=== PATIENT | female | born 1965 | race Caucasian/White ===

== ENCOUNTER 2024-10-24 21:34 | Inpatient (IN) | payer MEDICARE, OTHER, SELFPAY ==
[2024-10-24] VITALS (9 sets, daily range): BP systolic 108–139; BP diastolic 42–66; BMI 25.1; BMI 24.0
--- NOTE | 2024-10-24 15:33 | ED.GENMED ---
History of Present Illness
<Marilyn Burch [employer] - Last Filed: 10/24/24 22:32>
General
Chief Complaint: Fainting/Passed Out
Source: patient, family and ambulance crew
Exam Limitations: none
Time Seen by Provider: 10/24/24 15:30
Nursing documentation reviewed up to this point in time: agreed with
History of Present Illness
History of Present Illness:
59-year-old female with IDDM, ESRD dialysis patient, quadruple bypass cardiac, defibrillator, colon mass, necrotic R 2nd toe, PAD, neuropathy, drop foot, cataracts, retinopathy, bed sores presents from [facility] for approx 45 second
LOC. Pt states she is here because 'I felt like I was going to faint.' Family at bedside state this happened about a month ago, went to [facility] and needed blood transfusion, cardiac enzymes were high.
Pt denies SOB, CP, abd pain. Denies n/v. Is on her 3rd week of Vancocin for c-diff and diarrhea has subsided.
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 with vascular next month.
Past History
<Marilyn Burch [employer] - Last Filed: 10/24/24 22:32>
Past History
ED Past Medical History: CHF, Hypercholesterolemia, IDDM, Renal failure (on dialysis) and Other (ASCVD, Anemia, )
ED Past Surgical History: Cardiac (defibrillator, quadruple bypass)
Social History
Personal: Single
Living: custodial
Employment: Employed
Review of Systems
<Marilyn Burch [employer] - Last Filed: 10/24/24 22:32>
Review of Systems
Allergies reviewed?: Yes
All Other Systems: ROS reviewed and negative except as documented in HPI and ROS
Constitutional: Reports fatigue; Denies fever
Respiratory: Denies trouble breathing
Cardiac: Reports syncope; Denies chest pain or palpitations
ABD/GI: Denies abdominal pain, nausea, vomiting or diarrhea
: Reports other (Makes little urine, dialysis patient)
Musculoskeletal: Denies edema
Skin: Reports other (Dry gangrene right second toe)
Neurological: Denies headache
Phy Exam
<Marilyn Burch, [employer] - Last Filed: 10/24/24 22:32>
Physical Exam
Physical Exam:
GENERAL: No acute distress. A&Ox3.
CONSTITUTIONAL: Afebrile.
EYES: clear, conjunctivae normal
ENMT: moist mucus membranes, Pharynx nl
RESPIRATORY: Regular respirations, nonlabored, lungs clear.
CARDIOVASCULAR: Regular rate and rhythm, no murmurs, no rubs.
GI: Soft, nontender, normal BS
MUSCULOSKELETAL: Moves with ease. Well perfused.
SKIN: Warm, dry, pale, black, dry flaky right 2nd toe.
PSYCH: Depressed mood and affect. Chronically ill appearing, interactive and appropriate
NEUROLOGIC: Awake, chronically ill appearing, oriented. Speech slow but clear. No focal neurological deficits
Course
<Marilyn Burch, [employer] - Last Filed: 10/24/24 22:32>
Orders/Labs/Results
Orders:
Orders
10/24/24 15:00
Electrocardiogram (*1) Urgent
Reason for Study: Syncope
EKG- Treatment ONCE
10/24/24 15:48
Complete Blood Count/With Diff Urgent
Troponin I Urgent
10/24/24 16:09
Straight cath- Treatment ONCE
10/24/24 16:52
Urinalysis Reflex To Culture Urgent
Date Specimen was Collected: 10/24/24
Time Specimen was Collected: 16:49
Urine Microscopic Reflex Cult Urgent
Urine Culture Urgent
JERROD Source: U
Specimen Description:
Date Specimen was Collected: 10/24/24
Time Specimen was Collected: 16:49
10/24/24 18:34
CefTRIAXone [Rocephin] 1,000 mg IV NOW STA
10/24/24 18:37
CR Chest Portable - 1 View Urgent
Comment:
Reason For Exam: leukocytosis, syncopal episode
Reason Study Needs to be Portable: Patient Unstable
10/24/24 19:30
Comprehensive Metabolic Panel Urgent
Lactic Acid Urgent
Blood Culture Urgent
JERROD Source: Blood/Venous
Specimen Description:
10/24/24 19:31
Sterile Water [Sterile Water For Injection] 10 ml .ROUTE .[facility]
10/24/24 19:38
Blood Culture Urgent
JERROD Source: Blood/Venous
Specimen Description:
10/24/24 21:17
Admit/Transfer Patient As Directed
Co-Sign Provider:
Level of Care: Inpatient admission
Assign to:: Telemetry
Physician / Group: Celio
Diagnosis: Sepsis, UTI, Sacral Wound
Reason for Telemetry: Arrhythmia
Date to Stop Telemetry: 10/27/24
Time to Stop Telemetry: 11:00
Reason for Hospitalization: Sepsis, UTI, Sacral Wound
Expected length of stay greater than two midnights?: Yes
ELOS- Estimated Length of Stay in days: 3
I certify the patient meets the requirements for IP care: Yes
10/24/24 21:18
PRN Pain Medication Management As Directed
May give lesser potent ordered pain med per pt: Yes
preference::
Protocol:: Medication orders for pain may be administered in a
manner that supports deferring to patient preference
when the pt is:
- Requesting an ordered lesser potent pain medication.
Least to most potent pain medications are defined
as: acetaminophen < NSAID < tramadol < opioids
(morphine, oxycodone, hydromorphone).
- Requesting a lesser dose of the same medication IF
ORDERED.
- Requesting a less intrusive route of administration
if both routes are prescribed by the provider (PO <
IV).
10/24/24 21:23
Code Status As Directed
Resuscitation Status: Full Code
10/24/24 22:30
Acetaminophen [Tylenol] 650 mg PO Q6HPRN PRN mild pain / temp > 101 mild pain / temp > 101
Atorvastatin [Lipitor] 40 mg PO HS
Dextrose 50%-Water [Dextrose 50% Syringe] 12.5 grams IV [id number] PRN
Ezetimibe [Zetia] 10 mg PO HS
Glucagon [GlucaGen] 1 mg IM PRN PRN
Heparin 5,000 units SC TID
Melatonin 3 mg PO HSPRN PRN sleep
insulin glargine 10 unit SC HS
vancomycin [Vancocin] 250 mg PO QID
10/24/24 22:30
WOUND/OSTOMY CONSULT Routine
Reason for Consult: Sacral Wound
TSH Reflex To Free T4 Routine
Activity As Directed
Activity Level: Ambulate
With Assistance
Bedside Glucose Monitoring As Directed
Frequency: AC&HS
Additional Instructions:: Change to q6h if pt on TPN, tube feeding or not eating
EKG with chest pain [ECG as needed] As Directed
ECG as needed for:: Chest Pain
I/O [Intake/ Output] As Directed
Frequency: Per unit guidelines
Precautions As Directed
Type of Precautions: Contact
Records Request [Obtain Records] As Directed
Dates of Information to be Released: Most Recent
Type of Information Requested: Entire Record
Obtain Records from: [facility]
Vital Signs As Directed
Frequency: Per unit guidelines
Weight As Directed
Frequency: Daily
Oxygen Therapy [O2 Therapy] [RESP] Routine
Titrate/Wean O2 to maintain O2 sat greater than (%): 94
Ot Eval And Treat Routine
PT Consult [Pt Eval And Treat] Routine
Activity Level: Ambulate
With Assistance
10/25/24 Breakfast
2000 calorie (17 carb) Diabetic
Fluid Restriction: 1500 mL/day (50 oz)
Basic Metabolic Panel IN AM
Complete Blood Count/No Diff IN AM
Glycohemoglobin (HgbA1c) IN AM
Magnesium IN AM
Phosphorus IN AM
10/25/24 07:30
Insulin Aspart Corrective Low [Novolog Flexpen-Low Resistance] See Protocol SC AC
10/25/24 08:00
Aspirin Low Dose EC [Aspir Low (Enteric Coated)] 81 mg PO DAILY
Carvedilol [Coreg] 12.5 mg PO SUTUTHSA@0800
Clopidogrel Bisulfate [Plavix] 75 mg PO DAILY
ISOSORBIDE MONOnitrate ER [Imdur (Extended Release)] 30 mg PO SUTUTHSA@0800
Saccharomyces Boulardii [Florastor] 250 mg PO BID
insulin glargine 10 unit SC DAILY
10/25/24 18:00
Ferrous Sulfate [Feosol] 162.5 mg PO QPM
10/25/24 20:00
CefTRIAXone [Rocephin] 1,000 mg IV Q24H
10/27/24 11:00
DC Protocol for Telemetry ONCE
Abnormal Lab Results
10/24/24 10/24/24 10/24/24
15:48 16:52 19:30
WBC 19.9 H 10^3/uL
(4.8-10.8)
RBC 3.25 L 10^6/uL
(4.20-5.40)
Hgb 9.3 L g/dL
(12.0-16.0)
Hct 29.1 L %
(37.0-47.0)
MCHC 32.0 L g/dL
(33.0-37.0)
RDW 16.3 H %
(11.5-14.5)
Plt Count 415 H 10^3/uL
(130-400)
Abs Immat Gran (auto) 0.4 H 10^3/uL
(0-0.05)
Absolute Neuts (auto) 16.7 H 10^3/uL
(1.4-6.5)
Absolute Lymphs (auto) 1.0 L 10^3/uL
(1.2-3.4)
Absolute Monos (auto) 1.5 H 10^3/uL
(0.1-0.6)
Immature Gran % 1.9 H %
(0-0.5)
Neutrophils % 84.0 H %
(42.2-75.2)
Lymphocytes % 4.9 L %
(20.5-51.1)
Sodium 131 L mmol/L
(135-145)
Chloride 97 L mmol/L
(98-107)
BUN 41 H mg/dl
(7-17)
Creatinine 4.1 H* mg/dL
(0.6-1.0)
Glucose 127 H mg/dl
(70-99)
AST 13 L U/L
(14-36)
Albumin 3.1 L g/dl
(3.5-5.0)
Urine Ketones 1+ A
(Negative)
Ur Occult Blood Reflex 4+ A
(Negative)
Urine Bilirubin 2+ A
(Negative)
Leukocyte Esterase Rfl 3+ A
(Negative)
Urine RBC >100 A /HPF
(0-2)
Urine WBC (Reflex) >100 A /HPF
(0-5)
Urine Bacteria (Reflex) Many A
(Negative)
Urine Albumin (Reflex) 3+ A
(Neg - Trace)
10/24/24 15:48
10/24/24 19:30
Vital Signs
Initial and Last Documented VS:
Initial Vital Signs
Temp Pulse Resp Pulse Ox
98.1 F 79 15 97
10/24/24 15:07 10/24/24 15:07 10/24/24 15:07 10/24/24 15:07
Last Documented Vital Signs
Temp Pulse Resp BP Pulse Ox
98.1 F 74 20 123/56 99
10/24/24 15:07 10/24/24 22:15 10/24/24 22:15 10/24/24 22:00 10/24/24 22:15
<Kathie Simon, DO - Last Filed: 10/24/24 18:18>
Orders/Labs/Results
Orders:
Orders
10/24/24 15:00
Electrocardiogram (*1) Urgent
Reason for Study: Syncope
EKG- Treatment ONCE
10/24/24 15:48
Complete Blood Count/With Diff Urgent
Troponin I Urgent
10/24/24 16:09
Straight cath- Treatment ONCE
10/24/24 16:52
Urinalysis Reflex To Culture Urgent
Date Specimen was Collected: 10/24/24
Time Specimen was Collected: 16:49
Urine Microscopic Reflex Cult Urgent
Urine Culture Urgent
JERROD Source: U
Specimen Description:
Date Specimen was Collected: 10/24/24
Time Specimen was Collected: 16:49
10/24/24 18:34
CefTRIAXone [Rocephin] 1,000 mg IV NOW STA
10/24/24 18:37
CR Chest Portable - 1 View Urgent
Comment:
Reason For Exam: leukocytosis, syncopal episode
Reason Study Needs to be Portable: Patient Unstable
10/24/24 19:30
Comprehensive Metabolic Panel Urgent
Lactic Acid Urgent
Blood Culture Urgent
JERROD Source: Blood/Venous
Specimen Description:
10/24/24 19:31
Sterile Water [Sterile Water For Injection] 10 ml .ROUTE .[facility]
10/24/24 19:38
Blood Culture Urgent
JERROD Source: Blood/Venous
Specimen Description:
10/24/24 21:17
Admit/Transfer Patient As Directed
Co-Sign Provider:
Level of Care: Inpatient admission
Assign to:: Telemetry
Physician / Group: Celio
Diagnosis: Sepsis, UTI, Sacral Wound
Reason for Telemetry: Arrhythmia
Date to Stop Telemetry: 10/27/24
Time to Stop Telemetry: 11:00
Reason for Hospitalization: Sepsis, UTI, Sacral Wound
Expected length of stay greater than two midnights?: Yes
ELOS- Estimated Length of Stay in days: 3
I certify the patient meets the requirements for IP care: Yes
10/24/24 21:18
PRN Pain Medication Management As Directed
May give lesser potent ordered pain med per pt: Yes
preference::
Protocol:: Medication orders for pain may be administered in a
manner that supports deferring to patient preference
when the pt is:
- Requesting an ordered lesser potent pain medication.
Least to most potent pain medications are defined
as: acetaminophen < NSAID < tramadol < opioids
(morphine, oxycodone, hydromorphone).
- Requesting a lesser dose of the same medication IF
ORDERED.
- Requesting a less intrusive route of administration
if both routes are prescribed by the provider (PO <
IV).
10/24/24 21:23
Code Status As Directed
Resuscitation Status: Full Code
10/24/24 22:30
Acetaminophen [Tylenol] 650 mg PO Q6HPRN PRN mild pain / temp > 101 mild pain / temp > 101
Atorvastatin [Lipitor] 40 mg PO HS
Dextrose 50%-Water [Dextrose 50% Syringe] 12.5 grams IV [id number] PRN
Ezetimibe [Zetia] 10 mg PO HS
Glucagon [GlucaGen] 1 mg IM PRN PRN
Heparin 5,000 units SC TID
Melatonin 3 mg PO HSPRN PRN sleep
insulin glargine 10 unit SC HS
vancomycin [Vancocin] 250 mg PO QID
10/24/24 22:30
WOUND/OSTOMY CONSULT Routine
Reason for Consult: Sacral Wound
TSH Reflex To Free T4 Routine
Activity As Directed
Activity Level: Ambulate
With Assistance
Bedside Glucose Monitoring As Directed
Frequency: AC&HS
Additional Instructions:: Change to q6h if pt on TPN, tube feeding or not eating
EKG with chest pain [ECG as needed] As Directed
ECG as needed for:: Chest Pain
I/O [Intake/ Output] As Directed
Frequency: Per unit guidelines
Precautions As Directed
Type of Precautions: Contact
Records Request [Obtain Records] As Directed
Dates of Information to be Released: Most Recent
Type of Information Requested: Entire Record
Obtain Records from: [facility]
Vital Signs As Directed
Frequency: Per unit guidelines
Weight As Directed
Frequency: Daily
Oxygen Therapy [O2 Therapy] [RESP] Routine
Titrate/Wean O2 to maintain O2 sat greater than (%): 94
Ot Eval And Treat Routine
PT Consult [Pt Eval And Treat] Routine
Activity Level: Ambulate
With Assistance
10/25/24 Breakfast
2000 calorie (17 carb) Diabetic
Fluid Restriction: 1500 mL/day (50 oz)
Basic Metabolic Panel IN AM
Complete Blood Count/No Diff IN AM
Glycohemoglobin (HgbA1c) IN AM
Magnesium IN AM
Phosphorus IN AM
10/25/24 07:30
Insulin Aspart Corrective Low [Novolog Flexpen-Low Resistance] See Protocol SC AC
10/25/24 08:00
Aspirin Low Dose EC [Aspir Low (Enteric Coated)] 81 mg PO DAILY
Carvedilol [Coreg] 12.5 mg PO SUTUTHSA@0800
Clopidogrel Bisulfate [Plavix] 75 mg PO DAILY
ISOSORBIDE MONOnitrate ER [Imdur (Extended Release)] 30 mg PO SUTUTHSA@0800
Saccharomyces Boulardii [Florastor] 250 mg PO BID
insulin glargine 10 unit SC DAILY
10/25/24 18:00
Ferrous Sulfate [Feosol] 162.5 mg PO QPM
10/25/24 20:00
CefTRIAXone [Rocephin] 1,000 mg IV Q24H
10/27/24 11:00
DC Protocol for Telemetry ONCE
Abnormal Lab Results
10/24/24 10/24/24 10/24/24
15:48 16:52 19:30
WBC 19.9 H 10^3/uL
(4.8-10.8)
RBC 3.25 L 10^6/uL
(4.20-5.40)
Hgb 9.3 L g/dL
(12.0-16.0)
Hct 29.1 L %
(37.0-47.0)
MCHC 32.0 L g/dL
(33.0-37.0)
RDW 16.3 H %
(11.5-14.5)
Plt Count 415 H 10^3/uL
(130-400)
Abs Immat Gran (auto) 0.4 H 10^3/uL
(0-0.05)
Absolute Neuts (auto) 16.7 H 10^3/uL
(1.4-6.5)
Absolute Lymphs (auto) 1.0 L 10^3/uL
(1.2-3.4)
Absolute Monos (auto) 1.5 H 10^3/uL
(0.1-0.6)
Immature Gran % 1.9 H %
(0-0.5)
Neutrophils % 84.0 H %
(42.2-75.2)
Lymphocytes % 4.9 L %
(20.5-51.1)
Sodium 131 L mmol/L
(135-145)
Chloride 97 L mmol/L
(98-107)
BUN 41 H mg/dl
(7-17)
Creatinine 4.1 H* mg/dL
(0.6-1.0)
Glucose 127 H mg/dl
(70-99)
AST 13 L U/L
(14-36)
Albumin 3.1 L g/dl
(3.5-5.0)
Urine Ketones 1+ A
(Negative)
Ur Occult Blood Reflex 4+ A
(Negative)
Urine Bilirubin 2+ A
(Negative)
Leukocyte Esterase Rfl 3+ A
(Negative)
Urine RBC >100 A /HPF
(0-2)
Urine WBC (Reflex) >100 A /HPF
(0-5)
Urine Bacteria (Reflex) Many A
(Negative)
Urine Albumin (Reflex) 3+ A
(Neg - Trace)
10/24/24 15:48
10/24/24 19:30
Vital Signs
Initial and Last Documented VS:
Initial Vital Signs
Temp Pulse Resp Pulse Ox
98.1 F 79 15 97
10/24/24 15:07 10/24/24 15:07 10/24/24 15:07 10/24/24 15:07
Last Documented Vital Signs
Temp Pulse Resp BP Pulse Ox
98.1 F 74 20 123/56 99
10/24/24 15:07 10/24/24 22:15 10/24/24 22:15 10/24/24 22:00 10/24/24 22:15
<Marilyn Burch NP - Last Filed: 10/24/24 22:32>
MDM/Problems Addressed
Differential Diagnosis Includes:
Anemia, UTI, dehydration, electrolyte imbalance
MDM/Problems Addressed:
59-year-old female with IDDM, ESRD dialysis patient, quadruple bypass cardiac, defibrillator, colon mass, necrotic R 2nd toe, PAD, neuropathy, drop foot, cataracts, retinopathy, bed sores presents from [facility] for approx 45 second
LOC. Pt states she is here because 'I felt like I was going to faint.' Family at bedside state this happened about a month ago, went to [facility] and needed blood transfusion, cardiac enzymes were high.
Pt denies SOB, CP, abd pain. Denies n/v. Is on her 3rd week of Vancocin for c-diff and diarrhea has subsided. 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 with vascular next month.
Afebrile, NAD, states she feels 'tired.'
5:00 PM:
CBC: WBC 19.9, hemoglobin 9.3
Troponin 0.034
Straight cath UA with tea colored urine with dark sediment
6:30 PM:
Urinalysis shows infection
Plan: Admit: UTI, syncopal episode
7:30 p.m.
CXR done, awaiting official report
Blood cultures, urine cultures pending.
Lactic pending
Initial CMP hemolyzed, Phlebotomy in room now to re draw
8:20 p.m.
CMP consistent with her ESRD, no clinically significant abnormality
Lactic WNL
CXR: IMPRESSION:
Suspect left basilar pneumonia.
Mild diffuse interstitial prominence may reflect pulmonary interstitial edema and/or pneumonitis. Cannot rule out underlying chronic interstitial lung disease.
Rocephin given for UTI would cover PNA also
Admit: UTI, PNA
Hospitalist notified of admission
Chronic conditions affecting care: DM and Kidney disease
<Marilyn Burch [employer] - Last Filed: 10/24/24 22:32>
*Pulse Oximetry
SaO2: 95
Oxygen Mode of Delivery: Room air
Patient hypoxic: no
*Critical Care Note
Total Time (30-74mins, 75-104mins- exclusive of procedures): Not Applicable
ED Attending Note
<Marilyn Burch [employer] - Last Filed: 10/24/24 22:32>
-
Portions of this chart may have been created with voice recognition software.� Occasional wrong word or��sound alike� substitutions may have occurred due to the inherent limitations of voice recognition software.
<Kathie Simon DO - Last Filed: 10/24/24 18:18>
ED Attending Note
Patient seen and examined by attending physician: Yes
I performed the substantive portion of visit, reviewed & personally made and approve the management plan that is documented in note by myself or SRINATH.: Yes
I performed a history and physical exam of patient and discussed management with resident, I reviewed resident's note and agree with documented findings and plan of care.: Yes
ED Attending Note:
59-year-old female presents to the ER for evaluation of syncopal event that occurred earlier today. Patient denies any specific complaint of pain. She does not frequently urinate. She denies fevers or chills. She has a long-term dialysis patient
with a hemodialysis catheter present in her right anterior chest. Vital signs reviewed, patient is awake, alert, appears older than stated age no acute distress, mucous membranes moist, conjunctiva pink, scattered petechiae to bilateral upper
extremities, GCS is 15. White blood count is elevated. Urine appears cloudy. Awaiting remaining test results for further treatment.
Discharge Plan
Departure
Patient Disposition: Admit
Date of Disposition: 10/24/24
Time of Disposition: 19:29
Admit to: Med/Surg
Presentation/result/management discussed w/ accepting MD/DO: Hospitalist
Condition: Fair
Discharge Problem:
Urinary tract infection, Episode of syncope
Interventions
Interventions:
*Risk Screen - Suicide Last Done: 10/24/24 15:07
*General Assessment Last Done: 10/24/24 15:07
*Neglect/Abuse Screening Last Done: 10/24/24 15:07
*ED- Fall Risk Assessment Last Done: 10/24/24 15:07
*ED COVID-19 Vaccine History Last Done: 10/24/24 15:07
*Nursing Disposition Last Done: 10/24/24 22:28
ED- Cardiac Assessment Last Done: 10/24/24 15:31
ED- Neurological Assessment Last Done: 10/24/24 15:31
Discharge Date and Time
Discharge Date/Time: 10/24/24 22:28
[2024-10-24 16:10] LABS: Hematocrit 29.1 % (37.0-47.0); Hemoglobin 9.3 g/dL (12.0-16.0); Mean Corp Hgb Conc. 32.0 g/dL (33.0-37.0); Mean Corpuscular Volume 89.5 fL (81.0-99.0); Nucleated Red Blood Cells % 0.2 %; Platelet Count 415 10^3/uL (130-400); Red Cell Dist. Width 16.3 % (11.5-14.5)
[2024-10-24 16:34] LABS: Troponin I 0.034 ng/ml
[2024-10-24 17:17] LABS: Urine Character Cloudy (Clear)
--- NOTE | 2024-10-24 17:32 | PHANOTE ---
med rec note- called for missing paperwork, awaiting fax
[2024-10-24 18:15] LABS: Urine Red Blood Cell >100 /HPF (0-2); Urine White Cell >100 /HPF (0-5)
[2024-10-24 18:47] LABS: Glucose - Point of Care 99 mg/dl (70-99)
[2024-10-24] MEDS: ROCEPHIN 1000 MG IV (19:38)
[2024-10-24 19:55] LABS: ALT (SGPT) 13 U/L (0-35); AST (SGOT) 13 U/L (14-36); Albumin 3.1 g/dl (3.5-5.0); Alkaline Phosphatase 94 U/L (38-126); Blood Urea Nitrogen 41 mg/dl (7-17); Calcium 8.9 mg/dl (8.4-10.2); Carbon Dioxide 23 mmol/L (22-30); Chloride 97 mmol/L (98-107); Estimated Creatinine Clearance 15 ml/min; Glucose 127 mg/dl (70-99); Potassium 3.9 mmol/L (3.5-5.1); Sodium 131 mmol/L (135-145); Total Protein 6.4 g/dl (6.3-8.2); eGFR 11.79
--- NOTE | 2024-10-24 21:26 | HPS.HSE ---
Family Physician
-
Family Physician: Simon Cota
Chief Complaint
-
Weakness
History of Present Illness
Patient is a 59y F with PMH significant for ASCVD, ESRD on HD and recent CDiff infection who presents to ED complaining of generalized weakness and fatigue. Patient denies any other specific or focal complaints. She reports multiple prior
hospitalizations - most recently at [facility] about 2 weeks ago where she was diagnosed with CDiff colitis. She has been on tapering doses of oral vancomycin since that time with improvement in stool consistency. Prior to that, patient was hospitalized
for urinary tract infection.
Patient reports several days of weakness and fatigue. She denies sore throat, fevers / chills, cough / dyspnea, abdominal pain, N/V/D. She states that her urine has been dark appearing. No dysuria or flank pain.
Medical History
Past Medical History
Past Medical History: Reports Other
Additional Past Medical History:
ASCVD (CAD, PAD)
CHF - Unknown Type
Hypertension
DM-II
ESRD on HD
Anemia of CKD
Past Surgical History: Reports Other
Additional Past Surgical History:
x 3
PTCA with Stent (x 3)
CABG x 4
L 5th Toe Amputation
R IJ HD Catheter
Defibrillator (SICD)
Social History
Tobacco: Former Smoker
Alcohol: None
Drug: None
Living: [facility]
Family History
Family History: Not pertinent
Allergies / Home Medications
Allergies reflects when Allergies were last updated in [facility].
Home Medications with original date entered in [facility]
Allergy/Medication List:
Allergies
Allergy/AdvReac Type Severity Reaction Status Date / Time
Penicillins Allergy Unknown Verified 03/23/16 15:18
Home Medications
Saccharomyces boulardii 250 mg capsule (Florastor) 250 mg PO BID 10/24/24
acetaminophen 325 mg tablet (Tylenol) 650 mg PO Q6HPRN PRN mild pain 10/24/24
aspirin 81 mg tablet,delayed release 81 mg PO DAILY 10/24/24
atorvastatin 40 mg tablet (Lipitor) 40 mg PO HS 10/24/24
bisacodyl 10 mg rectal suppository (Dulcolax (bisacodyl)) 10 mg [place] DAILYPRN PRN if no bm aftr mom 10/24/24
carvedilol 12.5 mg tablet (Coreg) 12.5 mg PO SUTUTHSA@0800 10/24/24
clopidogrel 75 mg tablet (Plavix) 75 mg PO DAILY 10/24/24
docusate sodium 100 mg capsule (Colace) 100 mg PO BIDPRN PRN constipation 10/24/24
ezetimibe 10 mg tablet (Zetia) 10 mg PO HS 10/24/24
ferrous sulfate 325 mg (65 mg iron) tablet 162.5 mg PO QPM 10/24/24
heparin (porcine) 5,000 unit/mL injection solution 5,000 unit SC TID 10/24/24
insulin glargine 100 unit/mL subcutaneous solution 10 unit SC HS 10/24/24
insulin glargine 100 unit/mL subcutaneous solution 15 unit SC DAILY 10/24/24
insulin lispro 100 unit/mL subcutaneous pen 2 sliding scale dose SC AC 10/24/24
isosorbide mononitrate 30 mg tablet,extended release 24 hr 30 mg PO SUTUTHSA@0800 10/24/24
magnesium hydroxide 400 mg/5 mL oral suspension (Milk of Magnesia) 2,400 mg PO HSPRN PRN if no bm by 3rd day 10/24/24
melatonin 3 mg tablet 3 mg PO HSPRN PRN sleep 10/24/24
nitroglycerin 0.4 mg sublingual tablet (Nitrostat) 0.4 mg sublingual [id number] PRN chest pains 10/24/24
ondansetron HCl 4 mg tablet 4 mg PO Q8HPRN PRN nasuea 10/24/24
oxycodone-acetaminophen 5 mg-325 mg tablet 1 tab PO Q6HPRN PRN moderate pains 10/24/24
polyethylene glycol 3350 17 gram oral powder packet (Miralax) 17 g PO DAILYPRN PRN constipation 10/24/24
sennosides 8.6 mg tablet (senna) 17.2 mg PO HSPRN PRN constipation 10/24/24
therapeutic multivitamin 1 tab PO DAILY 10/24/24
vancomycin 250 mg capsule (Vancocin) 250 mg PO DIRECTED 10/24/24
Review of Systems
-
History Source: Patient
A 12 point ROS was completed and negative except as noted: Yes
Constitutional: Reports Fatigue; Denies Fever or Chills
Respiratory: Denies Cough or Trouble Breathing
Cardiac: Denies Chest Pain or Palpitations
Abdomen/GI: Denies Abdominal Pain, Nausea, Vomiting, Diarrhea or Bloody Stools
: Reports Dark Urine; Denies Dysuria or Incontinence
Neurological: Denies Dizzy or Headache
Psych: Denies Depression or Anxiety
Physical Exam
Vital Signs
Vital Signs
Temp Pulse Resp BP Pulse Ox
98.1 F 82 21 125/61 98
10/24/24 15:07 10/24/24 19:45 10/24/24 19:45 10/24/24 19:00 10/24/24 19:45
Physical Exam
General: Other (59y F in no acute distress.)
HEENT: Moist mucous membranes and PERRLA
Respiratory: Clear; No Wheezes, Rales or Rhonchi
Cardiac: S1/S2, Regular Rhythm and Murmur (II/ DIANA)
GI: Soft, Non Tender, Non Distended and Normal Bowel Sounds
Musculoskeletal: No Clubbing, No Cyanosis and Other (Trace LE edema. R 2nd toe with advanced dry gangrene. Some lesser changes of 3rd toe.)
Skin: Other (Sacral wound)
Neuro: AO x 3
Laboratory Results
-
10/24/24 15:48
10/24/24 19:30
Laboratory Results
Lactic Acid 0.9 mmol/L (0.7-2.0) 10/24/24 19:30
Total Bilirubin 0.5 mg/dl (0.2-1.3) 10/24/24 19:30
AST 13 U/L (14-36) L 10/24/24 19:30
ALT 13 U/L (0-35) 10/24/24 19:30
Alkaline Phosphatase 94 U/L (38-126) 10/24/24 19:30
Troponin I 0.034 ng/ml 10/24/24 15:48
Impression/Plan
-
A/P: Patient is a 59y F with PMH significant for ASCVD, DM-II and ESRD on HD who presents to ED from local [place] for evaluation of generalized weakness.
Sepsis
UTI
Sacral Wound
- Admit for further evaluation and treatment.
- Patient presents with leukocytosis and tachypnea. Potential infectious sources include urine and sacral wound.
- Hemodynamically stable. Avoid excessive fluid administration given HD status.
- Empiric abx with ceftriaxone for now pending culture data.
- Wound Care evaluation for local care of sacral wound.
ASCVD (CAD, PAD)
CHF - Unknown Type
- Continue current CV med regimen including DAPT, statin, etc.
- Follow I/Os, daily weights, etc.
- Not on diuretic regimen - manage volume on HD.
- Obtain records from [facility] for review.
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
- Patient has tentative plans for eventual amputation.
- Obtain prior records from [facility] for review.
- No evidence of surrounding erythema, active infection, etc.
ESRD on HD
- Last HD was yesterday () - however, patient notes that she was to change to MWF sessions.
- Nephrology evaluation for HD needs during acute stay.
- R IJ catheter in place. Has been on HD x 3 months per patient.
Benign Hypertension
- Continue current med regimen (presently only on non-HD days).
- Adjust dosing / timing as needed for adequate control.
DM-II
- Stable. Continue basal : bolus insulin regimen.
- Follow glucose and cover with SSI as needed.
- Update A1C.
Recent CDiff Colitis
- No current diarrhea. Completing tapering course of oral vancomycin.
- Currently on BID dosing per taper - will increase back to QID for now for prophylaxis while on new abx.
- Monitor for any recurrent diarrhea.
- Continue contact precautions for now.
Anemia of CKD
- Continue current iron supplementation.
- No evidence of active bleeding.
- Follow for changes in H&H.
DVT Prophylaxis: Continue Subcut Heparin
Code Status: Full
[2024-10-24] MEDS: PERCOCET 5/325 1 TABLET PO (22:14)
--- NOTE | 2024-10-24 22:45 | PTCARENOTE ---
Patient received as admission via internal transport from Emergency room. Unable to ambulate from stretcher to bed. No acute distress is noted upon arrival. Denies current pain, discomfort, or shortness of breath.
[2024-10-24 23:11] LABS: Glucose - Point of Care 267 mg/dl (70-99)
[2024-10-24] MEDS: LIPITOR 40 MG PO (23:12)
[2024-10-24] MEDS: HEPARIN 5000 UNITS SC (23:12)
[2024-10-24] MEDS: ZETIA 10 MG PO (23:12)
[2024-10-24] MEDS: LANTUS 0.1 UNITS SC (23:13)
[2024-10-24] MEDS: FIRVANQ 250 MG PO (23:36)
[2024-10-25] VITALS (8 sets, daily range): BP systolic 125–148; BP diastolic 51–83; PULSE 69; O2SAT 99; BMI 23.9
[2024-10-25 08:25] LABS: Glucose - Point of Care 296 mg/dl (70-99)
[2024-10-25] MEDS: ASPIR LOW (ENTERIC COATED) 81 MG PO (08:46)
[2024-10-25] MEDS: IMDUR (EXTENDED RELEASE) 30 MG PO (08:46)
[2024-10-25] MEDS: COREG 12.5 MG PO (08:46)
[2024-10-25] MEDS: PLAVIX 75 MG PO (08:46)
[2024-10-25] MEDS: FLORASTOR 250 MG PO ×2 (08:46→21:20)
[2024-10-25] MEDS: HEPARIN 5000 UNITS SC ×3 (08:49→21:21)
[2024-10-25 08:50] LABS: Hematocrit 25.6 % (37.0-47.0); Hemoglobin 7.8 g/dL (12.0-16.0); Mean Corp Hgb Conc. 30.5 g/dL (33.0-37.0); Mean Corpuscular Volume 91.4 fL (81.0-99.0); Platelet Count 385 10^3/uL (130-400); Red Cell Dist. Width 16.6 % (11.5-14.5)
[2024-10-25] MEDS: FIRVANQ 250 MG PO ×4 (08:53→21:21)
[2024-10-25] MEDS: LANTUS 0.1 UNITS SC ×2 (08:53→22:06)
[2024-10-25 09:13] LABS: Glycohemoglobin (HgbA1c) 7.9 % (4.0-5.6)
[2024-10-25] MEDS: NOVOLOG FLEXPEN-LOW RESISTANCE 3 UNITS SC (09:18)
[2024-10-25 09:35] LABS: Blood Urea Nitrogen 46 mg/dl (7-17); Calcium 8.7 mg/dl (8.4-10.2); Carbon Dioxide 23 mmol/L (22-30); Chloride 96 mmol/L (98-107); Estimated Creatinine Clearance 13 ml/min; Glucose 246 mg/dl (70-99); Magnesium 2.3 mg/dl (1.6-2.3); Potassium 4.4 mmol/L (3.5-5.1); Sodium 130 mmol/L (135-145); eGFR 10.54
[2024-10-25 12:18] LABS: Glucose - Point of Care 338 mg/dl (70-99)
[2024-10-25] MEDS: NOVOLOG FLEXPEN-LOW RESISTANCE 4 UNITS SC (12:19)
--- NOTE | 2024-10-25 12:31 | W.PN.HOSP.TC ---
Today's Communication/Plan
-
Continue antibiotics and HD.
Assessment / Plan
Assessment / Plan
Initial presentation:
Patient is a 59y F with PMH significant for ASCVD, ESRD on HD and recent CDiff infection who presents to ED complaining of generalized weakness and fatigue. Patient denies any other specific or focal complaints. She reports multiple prior
hospitalizations - most recently at [facility] about 2 weeks ago where she was diagnosed with CDiff colitis. She has been on tapering doses of oral vancomycin since that time with improvement in stool consistency. Prior to that, patient was hospitalized
for urinary tract infection.
Patient reports several days of weakness and fatigue. She denies sore throat, fevers / chills, cough / dyspnea, abdominal pain, N/V/D. She states that her urine has been dark appearing. No dysuria or flank pain.
Diagnosis present at admit
ASCVD (CAD, PAD)
CHF - Unknown Type
Hypertension
DM-II
ESRD on HD
Anemia of CKD
x 3
PTCA with Stent (x 3)
CABG x 4
L 5th Toe Amputation
R IJ HD Catheter
Defibrillator (SICD)
Hospital course by problem and A/P:
Patient is a 59y F with PMH significant for ASCVD, DM-II and ESRD on HD who presents to ED from local [place] for evaluation of generalized weakness.
1. Sepsis, source could be UTI or Sacral Wound
Admit for further evaluation and treatment.
Patient presents with leukocytosis and tachypnea
Hemodynamically stable.
Avoid excessive fluid administration given HD status.
Empiric abx with ceftriaxone for now pending culture data.
Wound Care evaluation for local care of sacral wound.
2. ASCVD (CAD, PAD)
Complicated by CHF - Unknown Type
Continue current CV med regimen including DAPT, statin, etc.
Follow I/Os, daily weights, etc.
Not on diuretic regimen
manage volume on HD.
Obtain records from [facility] for review.
3. 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
Patient has tentative plans for eventual amputation.
Obtain prior records from [facility] for review.
No evidence of surrounding erythema, active infection, etc.
4. ESRD on HD
Last HD was yesterday () - however, patient notes that she was to change to MWF sessions.
Nephrology evaluation for HD needs during acute stay.
R IJ catheter in place. Has been on HD x 3 months per patient.
5. Benign Hypertension
Continue current med regimen (presently only on non-HD days).
Adjust dosing / timing as needed for adequate control.
6. DM-II
Stable. Continue basal : bolus insulin regimen.
Follow glucose and cover with SSI as needed.
Update A1C.
7. Recent CDiff Colitis
No current diarrhea. Completing tapering course of oral vancomycin.
Currently on BID dosing per taper - will increase back to QID for now for prophylaxis while on new abx.
Monitor for any recurrent diarrhea.
Continue contact precautions for now.
8. Anemia of CKD
Continue current iron supplementation.
No evidence of active bleeding.
Follow for changes in H&H.
DVT Prophylaxis: Continue Subcut Heparin
Code Status: Full
Anticipated Discharge: 24 - 48 hours
Subjective/Interval History
-
Date of Service: October 25, 2024
Feels OK, no new issues.
Objective Data
-
Labs:
Laboratory Results
10/25/24
06:35
WBC 14.6 H
Hgb 7.8 L
Hct 25.6 L
Plt Count 385
Sodium 130 L
Potassium 4.4
Chloride 96 L
Carbon Dioxide 23
BUN 46 H
Creatinine 4.5 H*
Glucose 246 H
Calcium 8.7
Vital Signs:
Vital Signs
Temp Pulse Resp BP Pulse Ox
98.0 F 72 18 127/57 98
10/25/24 11:00 10/25/24 11:00 10/25/24 11:00 10/25/24 11:00 10/25/24 11:00
Review of Systems
-
History Source: Patient
All other systems: Reviewed and negative
Physical Exam
-
General: Well Developed, Well Nourished, No Apparent Distress and Comfortable
HEENT: Normocephalic, Atraumatic and Moist Mucous Membranes
Respiratory: Clear to Auscultation
Cardiac: Regular Rhythm and S1/S2
GI: Soft, Nontender and Nondistended
Musculoskeletal: No Clubbing and No Cyanosis
Skin: Warm, Dry, Jaundice and Other (necrotic toe (present prior to admit))
Neuro: Awake, Alert and Oriented
Psych: Calm
Data Reviewed
-
Labs: Labs Reviewed by me
[2024-10-25] MEDS: RETACRIT 10000 UNITS IV (14:22)
--- NOTE | 2024-10-25 14:51 | CM ---
Alert awake oriented patient who lives at [facility] last 2 weeks for HD MWF. She is assisted in all activities of daily living.PT saw her today in am and pt wants to walk again but was tired today . Pt had HD today also.Pt said she will return
to [facility].
Uses wheelchair and walker
Pharmacy [facility] or [facility] at [facility]
PCP Dr Jo
PLAN Return to [facility] for HD 3x weekly.
[2024-10-25 16:38] LABS: Glucose - Point of Care 121 mg/dl (70-99)
[2024-10-25] MEDS: NOVOLOG FLEXPEN-LOW RESISTANCE SC (16:41)
--- NOTE | 2024-10-25 16:44 | W.CON.NEPH ---
Consultation
-
Date/Time Consultation Requested: October 24, 2024 at 1600
Date/Time Consultation Performed: October 25, 2024 at 12 PM
Requesting Provider: All Pickens
Performing Provider: Dr. Chadwick
Reason for Consultation: ESRD
Medical History
-
Chief Complaint: ESRD
History of Present Illness:
59y F with PMH significant for ASCVD, ESRD on HD and recent CDiff infection who presents to ED complaining of generalized weakness and fatigue. Patient denies any other specific or focal complaints. She reports multiple prior hospitalizations -
most recently at [facility] about 2 weeks ago where she was diagnosed with CDiff colitis.
She has been on dialysis for about 3 months via permacath
She follows with Dr. Goodwin at [facility]
Renal consult for dialysis management
Past Medical History
ASCVD, ESRD on HD and recent CDiff infection
Social History
Tobacco: Non-Smoker
Alcohol: None
Family History
Family History: Not Pertinent
Allergies / Home Medications
Allergy/AdvReac Type Severity Reaction Status Date / Time
Penicillins Allergy Unknown Verified 03/23/16 15:18
�Medication �Instructions �Recorded �Confirmed �Type
Saccharomyces boulardii 250 mg 250 mg PO BID Supplement 10/24/24 10/24/24 History
capsule (Florastor)
acetaminophen 325 mg tablet 650 mg PO Q6HPRN PRN mild pain 10/24/24 10/24/24 History
(Tylenol)
aspirin 81 mg tablet,delayed 81 mg PO DAILY Blood Clot 10/24/24 10/24/24 History
release Prevention/Tx
atorvastatin 40 mg tablet (Lipitor) 40 mg PO HS High Cholesterol 10/24/24 10/24/24 History
bisacodyl 10 mg rectal suppository 10 mg [place] DAILYPRN PRN if no bm 10/24/24 10/24/24 History
(Dulcolax (bisacodyl)) aftr mom
carvedilol 12.5 mg tablet (Coreg) 12.5 mg PO SUTUTHSA@0800 Heart 10/24/24 10/24/24 History
Disease/Condition
clopidogrel 75 mg tablet (Plavix) 75 mg PO DAILY Blood Clot 10/24/24 10/24/24 History
Prevention/Tx
docusate sodium 100 mg capsule 100 mg PO BIDPRN PRN constipation 10/24/24 10/24/24 History
(Colace)
ezetimibe 10 mg tablet (Zetia) 10 mg PO HS High Cholesterol 10/24/24 10/24/24 History
ferrous sulfate 325 mg (65 mg 162.5 mg PO QPM Supplement 10/24/24 10/24/24 History
iron) tablet
heparin (porcine) 5,000 unit/mL 5,000 unit SC TID Blood Clot 10/24/24 10/24/24 History
injection solution Prevention/Tx
insulin glargine 100 unit/mL 10 unit SC HS Diabetes 10/24/24 10/24/24 History
subcutaneous solution
insulin glargine 100 unit/mL 15 unit SC DAILY Diabetes 10/24/24 10/24/24 History
subcutaneous solution
insulin lispro 100 unit/mL 2 sliding scale dose SC AC Diabetes 10/24/24 10/24/24 History
subcutaneous pen
isosorbide mononitrate 30 mg 30 mg PO SUTUTHSA@0800 Blood 10/24/24 10/24/24 History
tablet,extended release 24 hr Pressure
magnesium hydroxide 400 mg/5 mL 2,400 mg PO HSPRN PRN if no bm by 10/24/24 10/24/24 History
oral suspension (Milk of Magnesia) 3rd day
melatonin 3 mg tablet 3 mg PO HSPRN PRN sleep 10/24/24 10/24/24 History
nitroglycerin 0.4 mg sublingual 0.4 mg sublingual [id number] PRN 10/24/24 10/24/24 History
tablet (Nitrostat) chest pains
ondansetron HCl 4 mg tablet 4 mg PO Q8HPRN PRN nasuea 10/24/24 10/24/24 History
oxycodone-acetaminophen 5 mg-325 1 tab PO Q6HPRN PRN moderate pains 10/24/24 10/24/24 History
mg tablet
polyethylene glycol 3350 17 gram 17 g PO DAILYPRN PRN constipation 10/24/24 10/24/24 History
oral powder packet (Miralax)
sennosides 8.6 mg tablet (senna) 17.2 mg PO HSPRN PRN constipation 10/24/24 10/24/24 History
therapeutic multivitamin 1 tab PO DAILY Supplement 10/24/24 10/24/24 History
vancomycin 250 mg capsule 250 mg PO DIRECTED Infection 10/24/24 10/24/24 History
(Vancocin)
Review of Systems
-
Weakness
All other systems: Negative unless noted
Physical Exam
Vital Signs
Vital Signs
Temp Pulse Resp BP Pulse Ox
97.8 F 67 18 148/67 100
10/25/24 15:00 10/25/24 15:00 10/25/24 15:00 10/25/24 15:00 10/25/24 15:00
Lab Results
WBC 14.6 10^3/uL (4.8-10.8) H 10/25/24 06:35
RBC 2.80 10^6/uL (4.20-5.40) L 10/25/24 06:35
Hgb 7.8 g/dL (12.0-16.0) L 10/25/24 06:35
Hct 25.6 % (37.0-47.0) L 10/25/24 06:35
Plt Count 385 10^3/uL (130-400) 10/25/24 06:35
Sodium 130 mmol/L (135-145) L 10/25/24 06:35
Potassium 4.4 mmol/L (3.5-5.1) 10/25/24 06:35
Chloride 96 mmol/L (98-107) L 10/25/24 06:35
Carbon Dioxide 23 mmol/L (22-30) 10/25/24 06:35
BUN 46 mg/dl (7-17) H 10/25/24 06:35
Creatinine 4.5 mg/dL (0.6-1.0) H* 10/25/24 06:35
eGFR 10.54 10/25/24 06:35
Glucose 246 mg/dl (70-99) H 10/25/24 06:35
Calcium 8.7 mg/dl (8.4-10.2) 10/25/24 06:35
Phosphorus 5.2 mg/dl (2.5-4.5) H 10/25/24 06:35
Albumin 3.1 g/dl (3.5-5.0) L 10/24/24 19:30
Physical Exam
General no acute distress
HEENT no cephalic atraumatic extraocular muscle intact no scleral icterus no JVD neck supple
lungs clear to auscultation bilateral
heart regular S1-S2 positive
abdomen soft nontender positive bowel sounds
extremities no edema pulses present bilateral
Neurologically nonfocal alert and oriented x 3
Skin no lesions no abrasions no petechiae
Psych normal affect no bizarre behavior
Data Reviewed
-
Radiology: Image Personally Visualized and interpreted
Labs: Labs Reviewed by me, Discussed with Nurse and Discussed with Patient
Assessment/Plan
-
59y F with PMH significant for ASCVD, ESRD on HD and recent CDiff infection who presents to ED complaining of generalized weakness and fatigue. Patient denies any other specific or focal complaints. She reports multiple prior hospitalizations -
most recently at [facility] about 2 weeks ago where she was diagnosed with CDiff colitis.
She has been on dialysis for about 3 months via permacath
She follows with Dr. Goodwin at [facility]
Renal consult for dialysis management
Impression
ESRD TTS [facility]
Pneumonia
C. difficile
Anemia of chronic disease
Plan
Continue TTS schedule
Ultrafiltration as blood pressure will tolerate
EPO for anemia
Antibiotics renally dosed
[2024-10-25] MEDS: FEOSOL 162.5 MG PO (17:54)
[2024-10-25] MEDS: PERCOCET 5/325 1 TABLET PO (18:32)
[2024-10-25 21:05] LABS: Glucose - Point of Care 432 mg/dl (70-99)
[2024-10-25] MEDS: ZETIA 10 MG PO (21:20)
[2024-10-25] MEDS: LIPITOR 40 MG PO (21:21)
[2024-10-25] MEDS: ROCEPHIN 1000 MG IV (21:22)
[2024-10-25] MEDS: STERILE WATER FOR INJECTION 10 ML IV (21:23)
[2024-10-25 21:42] LABS: Glucose 395 mg/dl (70-99)
[2024-10-25] MEDS: NOVOLOG FLEXPEN 5 UNITS SC (22:05)
--- NOTE | 2024-10-25 22:15 | PTCARENOTE ---
Pt HS glucose reading 'RR HI.' Stat venous glucose ordered per protocol. Glucose of 395. WALDO Leger notified. Pt due for 10 units of Lantus @ HS. 5 units Novolog ordered. Refer to MAR. Plan of care ongoing.
[2024-10-26 03:00] VITALS: BP 141/60
[2024-10-26 04:14] LABS: Glucose - Point of Care 235 mg/dl (70-99)
[2024-10-26 06:00] VITALS: BMI 24.1
[2024-10-26 07:00] VITALS: BP 143/64
[2024-10-26 07:34] LABS: Glucose - Point of Care 276 mg/dl (70-99)
[2024-10-26] MEDS: COREG 12.5 MG PO (07:39)
[2024-10-26] MEDS: LANTUS 0.1 UNITS SC ×2 (07:39→21:48)
[2024-10-26] MEDS: IMDUR (EXTENDED RELEASE) 30 MG PO (07:39)
[2024-10-26] MEDS: NOVOLOG FLEXPEN-LOW RESISTANCE 3 UNITS SC (07:39)
[2024-10-26] MEDS: PLAVIX 75 MG PO (07:39)
[2024-10-26] MEDS: HEPARIN 5000 UNITS SC ×3 (07:40→21:21)
[2024-10-26] MEDS: ASPIR LOW (ENTERIC COATED) 81 MG PO (07:40)
[2024-10-26] MEDS: FLORASTOR 250 MG PO ×2 (07:40→21:21)
[2024-10-26] MEDS: FIRVANQ 250 MG PO ×4 (07:47→21:21)
[2024-10-26 08:26] LABS: Hematocrit 28.3 % (37.0-47.0); Hemoglobin 8.9 g/dL (12.0-16.0); Mean Corp Hgb Conc. 31.4 g/dL (33.0-37.0); Mean Corpuscular Volume 91.6 fL (81.0-99.0); Platelet Count 361 10^3/uL (130-400); Red Cell Dist. Width 16.6 % (11.5-14.5)
[2024-10-26 08:54] LABS: Blood Urea Nitrogen 31 mg/dl (7-17); Calcium 8.7 mg/dl (8.4-10.2); Carbon Dioxide 24 mmol/L (22-30); Chloride 97 mmol/L (98-107); Estimated Creatinine Clearance 21 ml/min; Glucose 262 mg/dl (70-99); Potassium 4.1 mmol/L (3.5-5.1); Sodium 132 mmol/L (135-145); eGFR 17.86
[2024-10-26 11:00] VITALS: BP 135/58
[2024-10-26] MEDS: PERCOCET 5/325 1 TABLET PO (11:16)
[2024-10-26 12:26] LABS: Glucose - Point of Care 309 mg/dl (70-99)
[2024-10-26] MEDS: NOVOLOG FLEXPEN-LOW RESISTANCE 4 UNITS SC (12:54)
--- NOTE | 2024-10-26 13:00 | W.PN.HOSP.TC ---
Today's Communication/Plan
-
Doing well. continue current care.
Assessment / Plan
Assessment / Plan
Initial presentation:
Patient is a 59y F with PMH significant for ASCVD, ESRD on HD and recent CDiff infection who presents to ED complaining of generalized weakness and fatigue. Patient denies any other specific or focal complaints. She reports multiple prior
hospitalizations - most recently at [facility] about 2 weeks ago where she was diagnosed with CDiff colitis. She has been on tapering doses of oral vancomycin since that time with improvement in stool consistency. Prior to that, patient was hospitalized
for urinary tract infection.
Patient reports several days of weakness and fatigue. She denies sore throat, fevers / chills, cough / dyspnea, abdominal pain, N/V/D. She states that her urine has been dark appearing. No dysuria or flank pain.
Diagnosis prior to admit
ASCVD (CAD, PAD)
CHF - Unknown Type
Hypertension
DM-II
ESRD on HD
Anemia of CKD
x 3
PTCA with Stent (x 3)
CABG x 4
L 5th Toe Amputation
R IJ HD Catheter
Defibrillator (SICD)
recent c-diff
Hospital course by problem and A/P:
Patient is a 59y F with PMH significant for ASCVD, DM-II and ESRD on HD who presents to ED from local [place] for evaluation of generalized weakness.
1. Sepsis, source could be UTI or Sacral Wound - improving, WBC coming down. If progress continues may be ready for DC in 1-2 days.
Patient presented with leukocytosis and tachypnea
Hemodynamically stable.
Avoid excessive fluid administration given HD status.
Empiric abx with ceftriaxone for now, pending culture data. This seems to be working.
Wound Care evaluation for local care of sacral wound.
2. ASCVD (CAD, PAD)
Complicated by CHF - Unknown Type
Continue current CV med regimen including DAPT, statin, etc.
Follow I/Os, daily weights, etc.
Not on diuretic regimen
manage volume on HD.
Obtain records from [facility] for review.
3. 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
Patient has tentative plans for eventual amputation.
Obtain prior records from [facility] for review.
No evidence of surrounding erythema, active infection, etc.
Wound care ordered
4. ESRD on HD
Last HD was yesterday (Sunday) - Patient noted that she was to change to MWF sessions.
Nephrology evaluation for HD needs during acute stay appreciated.
R IJ catheter in place. Has been on HD x 3 months per patient.
5. Benign Hypertension
Continue current med regimen (presently only on non-HD days).
Adjust dosing / timing as needed for adequate control.
6. DM-II
Stable. Continue basal : bolus insulin regimen.
Follow glucose and cover with SSI as needed.
Update A1C.
7. Recent CDiff Colitis - no diarrhea currently
No current diarrhea. Completing tapering course of oral vancomycin.
Was on BID dosing per taper - increased back to QID for now for prophylaxis while on new abx.
Monitor for any recurrent diarrhea.
Continue contact precautions for now.
8. Anemia of CKD
Continue current iron supplementation.
No evidence of active bleeding.
Follow for changes in H&H.
DVT Prophylaxis: Continue Subcut Heparin
Code Status: Full
Anticipated Discharge: 24 - 48 hours
Subjective/Interval History
-
Date of Service: October 26, 2024
Feels well today. No new issues.
Objective Data
-
Labs:
Laboratory Results
10/26/24
07:57
WBC 12.7 H
Hgb 8.9 L
Hct 28.3 L
Plt Count 361
Sodium 132 L
Potassium 4.1
Chloride 97 L
Carbon Dioxide 24
BUN 31 H
Creatinine 2.9 H
Glucose 262 H
Calcium 8.7
Vital Signs:
Vital Signs
Temp Pulse Resp BP Pulse Ox
98.6 F 74 18 135/58 96
10/26/24 11:00 10/26/24 11:00 10/26/24 11:00 10/26/24 11:00 10/26/24 11:00
I&O
10/25/24 10/26/24 10/27/24
06:59 06:59 06:59
Intake Total 1200 / 1200
Balance 1200 / 1200
Review of Systems
-
History Source: Patient
All other systems: Reviewed and negative
Physical Exam
-
General: Well Developed, Well Nourished, No Apparent Distress, Comfortable and Conversant
HEENT: Normocephalic, Atraumatic and Moist Mucous Membranes
Respiratory: Clear to Auscultation
Cardiac: Regular Rhythm and S1/S2
GI: Soft, Nontender and Nondistended
Musculoskeletal: No Clubbing, No Cyanosis and No Edema
Skin: Warm and Dry
Neuro: Awake, Alert and Oriented
Psych: Calm
Data Reviewed
-
Labs: Labs Reviewed by me
[2024-10-26 14:19] VITALS: BMI 24.1
--- NOTE | 2024-10-26 14:38 | W.PN.NEPH.PH ---
Today's Communication / Plan
-
Dialysis tomorrow
Assessment/Plan
-
59y F with PMH significant for ASCVD, ESRD on HD and recent CDiff infection who presents to ED complaining of generalized weakness and fatigue. Patient denies any other specific or focal complaints. She reports multiple prior hospitalizations -
most recently at [facility] about 2 weeks ago where she was diagnosed with CDiff colitis.
She has been on dialysis for about 3 months via permacath
She follows with Dr. Goodwin at [facility] yet to start there. has been at [facility] and [facility]
Renal consult for dialysis management
Impression
ESRD TTS [facility]
Pneumonia
C. difficile
Anemia of chronic disease
Plan
Continue TTS schedule
will be doing MWF at [facility] so HD tomorrow
Ultrafiltration as blood pressure will tolerate
EPO for anemia
Antibiotics renally dosed
-
-
Date of Service: October 26, 2024
CC / HPI / ROS
-
Chief Complaint:
Pneumonia sepsis
History of Present Illness:
ESRD
Review of Systems:
No chest pain or shortness of breath
Labs
-
Labs:
WBC 12.7 10^3/uL (4.8-10.8) H 10/26/24 07:57
RBC 3.09 10^6/uL (4.20-5.40) L 10/26/24 07:57
Hgb 8.9 g/dL (12.0-16.0) L 10/26/24 07:57
Hct 28.3 % (37.0-47.0) L 10/26/24 07:57
Plt Count 361 10^3/uL (130-400) 10/26/24 07:57
Sodium 132 mmol/L (135-145) L 10/26/24 07:57
Potassium 4.1 mmol/L (3.5-5.1) 10/26/24 07:57
Chloride 97 mmol/L (98-107) L 10/26/24 07:57
Carbon Dioxide 24 mmol/L (22-30) 10/26/24 07:57
BUN 31 mg/dl (7-17) H 10/26/24 07:57
Creatinine 2.9 mg/dL (0.6-1.0) H 10/26/24 07:57
eGFR 17.86 10/26/24 07:57
Glucose 262 mg/dl (70-99) H 10/26/24 07:57
Calcium 8.7 mg/dl (8.4-10.2) 10/26/24 07:57
Phosphorus 5.2 mg/dl (2.5-4.5) H 10/25/24 06:35
Albumin 3.1 g/dl (3.5-5.0) L 10/24/24 19:30
Physical Exam
-
Vital Signs:
Vital Signs
Temp Pulse Resp BP Pulse Ox
98.6 F 74 18 135/58 96
10/26/24 11:00 10/26/24 11:00 10/26/24 11:00 10/26/24 11:00 10/26/24 11:00
Respiratory:: Bilateral: CTA
Lung Excursion:: Normal
Abdomen:: Soft
Bowel Sounds:: None
Extremity Edema:: +1: Bilateral:
[2024-10-26 15:00] VITALS: BP 130/56
[2024-10-26 16:13] LABS: Glucose - Point of Care 351 mg/dl (70-99)
[2024-10-26] MEDS: NOVOLOG FLEXPEN-LOW RESISTANCE 5 UNITS SC (16:18)
[2024-10-26] MEDS: FEOSOL 162.5 MG PO (17:44)
[2024-10-26 19:51] VITALS: BP 146/69
[2024-10-26] MEDS: STERILE WATER FOR INJECTION 10 ML IV (21:21)
[2024-10-26] MEDS: LIPITOR 40 MG PO (21:21)
[2024-10-26] MEDS: ZETIA 10 MG PO (21:21)
[2024-10-26] MEDS: ROCEPHIN 1000 MG IV (21:22)
[2024-10-26 21:36] LABS: Glucose - Point of Care 298 mg/dl (70-99)
[2024-10-26 23:13] VITALS: BP 141/69
[2024-10-27 05:20] VITALS: BMI 23.8
[2024-10-27 08:08] VITALS: BP 131/64
[2024-10-27] MEDS: FIRVANQ 250 MG PO ×4 (08:14→21:41)
[2024-10-27] MEDS: PLAVIX 75 MG PO (08:15)
[2024-10-27] MEDS: ASPIR LOW (ENTERIC COATED) 81 MG PO (08:15)
[2024-10-27] MEDS: FLORASTOR 250 MG PO ×2 (08:15→21:40)
[2024-10-27] MEDS: HEPARIN 5000 UNITS SC ×3 (08:15→21:41)
[2024-10-27] MEDS: NOVOLOG FLEXPEN-LOW RESISTANCE 3 UNITS SC ×2 (08:17→17:42)
[2024-10-27] MEDS: LANTUS 0.1 UNITS SC ×2 (08:20→21:44)
--- NOTE | 2024-10-27 09:26 | WOUNDNOTE ---
R 5TH TOE (LATERAL)
--- NOTE | 2024-10-27 09:27 | WOUNDNOTE ---
R 5TH TOES/PLANTAR FOREFOOT
--- NOTE | 2024-10-27 09:27 | WOUNDNOTE ---
L 2ND TOE (PLANTAR)
--- NOTE | 2024-10-27 09:30 | WOUNDNOTE ---
Addendum entered by Sonam Tarango 10/30/24 11:31:
Correction: R buttock, not L.
Original Note:
L BUTTOCKS (UPPER)
--- NOTE | 2024-10-27 09:30 | WOUNDNOTE ---
Addendum entered by Sonam Tarango 10/30/24 11:30:
Correction: R buttocks, not L.
Original Note:
L BUTTOCKS
--- NOTE | 2024-10-27 09:31 | WOUNDNOTE ---
R 3RD TOE (SIDE OF)
--- NOTE | 2024-10-27 09:33 | WOUNDNOTE ---
R TOES/PLANTAR FOREFOOT
--- NOTE | 2024-10-27 09:34 | WOUNDNOTE ---
[facility] RN note: Patient admitted with sepsis, UTI. Patient admitted from [facility].
See H&P for complete history.
PMH: gangrenous toes (R>L), she follows a vascular surgeon from [place] and plan is eventual amputation, sacral pressure injury, ESRD on HD, C diff, UTI, CAD, PAD, CHF, HTN, DM, anemia, PTCA with stents, CABG, L 3rd toe amp, IR catheter,
defibrillator, former smoker.
Wound Location and type/assessment: Patient admitted with: Dry gangrenous toe ulcers all toes R foot, L plantar 2nd toe, dry gangrene ulcers R plantar forefoot and R heel d/t PAD. R pedal pulse heard faintly via portable Doppler. L pedal pulse
heard via portable Doppler. R upper inner buttocks purple discolored ulcer suspect DTI vs stage 2. Sacral/coccyx/buttocks red areas with center sacral small divot with moist off white tissue suspect healing stage 3 vs scar with moisture. R upper
perdomo with scabbed skin tear. Bruises abdomen. Discolored dull red L upper flank healed incision from CABG patient stated. Small bruises arms and legs. L heel blanchable mild red.
Appetite: good.
Pressure redistribution devices in place: Shake air bed. She can turn to L side better than R.
Plan: Betadine applied to gangrene on toes bilateral, R plantar forefoot and R heel ulcers. Silicone border foam changed on sacrum after josé miguel care given (patient incontinent of moderate loose brown stool and moderate dark yellow urine). Protective
foam applied to L heel. Patient turned to R semi side lying position. Heels off bed with pillow. Patient stated her daughter will bring in her heel relief boots. Air chair cushion given. Upper ear crease mild red from o2 use at night (soft type o2
tubing being used).
Updated and confirmed orders with Dr. Lindsey and updated RN Tanna and PCT Gemini.
Care plan to be updated and will follow as needed. Patient to follow up with her vascular surgeon. Patient stated she saw her vascular surgeon recently prior to admission.
Note to case management of equipment requested for discharge: Air mattress at [facility] if not already in place.
Recommend follow up at wound care center upon discharge if needed.
[2024-10-27 09:51] LABS: Glucose - Point of Care 256 mg/dl (70-99)
[2024-10-27 11:19] VITALS: BP 132/63
[2024-10-27 11:33] LABS: Glucose - Point of Care 192 mg/dl (70-99)
[2024-10-27] MEDS: NOVOLOG FLEXPEN-LOW RESISTANCE 1 UNITS SC (12:04)
--- NOTE | 2024-10-27 12:48 | W.PN.NEPH.HD ---
Assessment
-
Patient seen on dialysis
Systolic blood [id number] at current u/f
HD via catheter
Progress Note - Hemodialysis
-
Date of Service: October 27, 2024
Duration: 30 minutes and 3 hours
Potassium Bath: 2
Calcium Bath: 2.5
Opti-Dialyzer: 160
Ultrafiltration: Other (2kg)
Blood Flow: 400
Dialysate Flow: 600
Heparin: none
EPO: 10K
[2024-10-27 12:52] LABS: Hematocrit 24.0 % (37.0-47.0); Hemoglobin 7.5 g/dL (12.0-16.0); Mean Corp Hgb Conc. 31.3 g/dL (33.0-37.0); Mean Corpuscular Volume 91.3 fL (81.0-99.0); Platelet Count 342 10^3/uL (130-400); Red Cell Dist. Width 16.8 % (11.5-14.5)
[2024-10-27] MEDS: RETACRIT 10000 UNITS IV (13:20)
[2024-10-27 13:35] LABS: Blood Urea Nitrogen 42 mg/dl (7-17); Calcium 8.7 mg/dl (8.4-10.2); Carbon Dioxide 23 mmol/L (22-30); Chloride 95 mmol/L (98-107); Estimated Creatinine Clearance 14 ml/min; Glucose 188 mg/dl (70-99); Potassium 3.8 mmol/L (3.5-5.1); Sodium 129 mmol/L (135-145); eGFR 10.83
--- NOTE | 2024-10-27 14:01 | W.PN.HOSP.TC ---
Today's Communication/Plan
-
ct chest
add doxy
mrsa pcr
Assessment / Plan
Assessment / Plan
Initial presentation:
Patient is a 59y F with PMH significant for ASCVD, ESRD on HD and recent CDiff infection who presents to ED complaining of generalized weakness and fatigue. Patient denies any other specific or focal complaints. She reports multiple prior
hospitalizations - most recently at [facility] about 2 weeks ago where she was diagnosed with CDiff colitis. She has been on tapering doses of oral vancomycin since that time with improvement in stool consistency. Prior to that, patient was hospitalized
for urinary tract infection.
Patient reports several days of weakness and fatigue. She denies sore throat, fevers / chills, cough / dyspnea, abdominal pain, N/V/D. She states that her urine has been dark appearing. No dysuria or flank pain.
Diagnosis prior to admit
ASCVD (CAD, PAD)
CHF - Unknown Type
Hypertension
DM-II
ESRD on HD
Anemia of CKD
x 3
PTCA with Stent (x 3)
CABG x 4
L 5th Toe Amputation
R IJ HD Catheter
Defibrillator (SICD)
recent c-diff
Hospital course by problem and A/P:
Patient is a 59y F with PMH significant for ASCVD, DM-II and ESRD on HD who presents to ED from local [place] for evaluation of generalized weakness.
# Sepsis
- unknown source
-Possible pneumonia
-On Ceftriaxone
-Add MRSA
-Add atypicals
-CXR still with persistent ?pneumonia
-CT Chest
# ASCVD (CAD, PAD)
Complicated by CHF - Unknown Type
Continue current CV med regimen including DAPT, statin, etc.
Follow I/Os, daily weights, etc.
Not on diuretic regimen
manage volume on HD.
Obtain records from [facility] for review.
# Dry Gangrene R 2nd Toe
Patient has tentative plans for eventual amputation.
No evidence of surrounding erythema, active infection, etc.
Wound care ordered
# ESRD on HD
R IJ catheter in place. Has been on HD x 3 months per patient.
# Benign Hypertension
Continue current med regimen (presently only on non-HD days).
Adjust dosing / timing as needed for adequate control.
# DM-II
Stable. Continue basal : bolus insulin regimen.
Follow glucose and cover with SSI as needed.
Update A1C.
#Recent CDiff Colitis - no diarrhea currently
No current diarrhea. Completing tapering course of oral vancomycin.
Was on BID dosing per taper - increased back to QID for now for prophylaxis while on new abx.
Monitor for any recurrent diarrhea.
Continue contact precautions for now.
# Anemia of CKD
Continue current iron supplementation.
No evidence of active bleeding.
Follow for changes in H&H.
DVT Prophylaxis: Continue Subcut Heparin
Code Status: Full
Total time spent on today's encounter was 51 minutes which included time spent in counseling the patient/family regarding diagnosis and treatment plan as listed above, goals of care, and symptom management. Case was discussed with nursing staff,
specialists, and care coordinators/case management. All labs and imaging personally reviewed by me. Remainder the time spent in detailed review of previous records, lab data, imaging, and other medical provider documentation.
Anticipated Discharge: 24 - 48 hours
Subjective/Interval History
-
Date of Service: October 27, 2024
still lethargic; WBC still higher
Objective Data
-
Labs:
Laboratory Results
10/27/24
12:31
WBC 15.4 H
Hgb 7.5 L
Hct 24.0 L
Plt Count 342
Sodium 129 L
Potassium 3.8
Chloride 95 L
Carbon Dioxide 23
BUN 42 H
Creatinine 4.4 H*
Glucose 188 H
Calcium 8.7
Vital Signs:
Vital Signs
Temp Pulse Resp BP Pulse Ox
98.2 F 82 18 132/63 97
10/27/24 11:19 10/27/24 11:19 10/27/24 11:19 10/27/24 11:19 10/27/24 11:19
I&O
10/26/24 10/27/24 10/28/24
06:59 06:59 06:59
Intake Total 1200 / 1200 1200 / 1200
Balance 1200 / 1200 1200 / 1200
Review of Systems
-
History Source: Patient
All other systems: Reviewed and negative
Physical Exam
-
General: Well Developed, Well Nourished, No Apparent Distress, Comfortable and Conversant
HEENT: Normocephalic, Atraumatic and Moist Mucous Membranes
Respiratory: Clear to Auscultation
Cardiac: Regular Rhythm and S1/S2
GI: Soft, Nontender and Nondistended
Musculoskeletal: No Clubbing, No Cyanosis and No Edema
Skin: Warm and Dry
Neuro: Awake, Alert and Oriented
Psych: Calm
Data Reviewed
-
Labs: Labs Reviewed by me
--- NOTE | 2024-10-27 14:48 | CM ---
Chart reviewed and patient to return to [facility] when stable, patient is on HD, patient is currently also on oxygen.
Plan To follow with patient and assist with transfer back to [facility] when stable. Clinicals faxed through [facility].
[facility]
Report [phone]
[2024-10-27 15:55] VITALS: BP 135/66
--- NOTE | 2024-10-27 16:08 | PN.CDI ---
CDI
- -
CDI:
Physician Documentation Request
Admit Date: 10/24/24 21:34
Dear Doctor Rosalia,
Please review the following and provide your response in the progress notes.
Clinical Indicators:
Pt admitted with sepsis 2/2 to possible PNA on ceftriaxone
Documented per [facility] note 10/27 @ 0934, ' Patient admitted with:...R upper inner buttocks purple discolored ulcer suspect DTI vs stage 2. Sacral/coccyx/buttocks red areas with center sacral small divot with moist off white tissue suspect healing
stage 3 vs scar with moisture. R upper perdomo with scabbed skin tear...Silicone border foam changed on sacrum .... Protective foam applied to L heel....'
Physician documentation of the type and location of wounds is required for compliant documentation. Based on the above clinical findings and your assessment, please provide the following in your progress note:
1. Location of the ulcer/wound, including laterality.( FOR EACH WOUND)
2. Type (etiology) of ulcer/wound:
- Pressure (decubitus) ulcer
- Non-pressure ulcer
- Other ( please specify)
Use of terms such as suspected, likely, concern for, or probable (associated with a specific diagnosis that is being evaluated, monitored, or treated as if it exists) are acceptable and can be coded in the inpatient setting, when documented at the
time of discharge.
Thank you,
Katelyn Kirby RN
CDI Specialist
[place] Text
Please use your independent medical judgment in providing your response.
*Source: National Pressure Ulcer Advisory Panel (NPUAP)
--- NOTE | 2024-10-27 16:13 | PN.CDI ---
CDI
- -
CDI:
Physician Documentation Request
Admit Date: 10/24/24 21:34
Dear Doctor Rosalia ,
Please review the following and provide your response in the progress notes.
Clinical Indicators:
Pt admitted with sepsis 2/2 to possible PNA on ceftriaxone /Doxycycline
Sodium levels are as below/Pt is HD
10/24/24 10/25/24 10/26/24
19:30 06:35 07:57
Sodium 131 L 130 L 132 L
10/27/24
12:31
Sodium 129 L
Based on the above, could you clarify in the progress notes, the appropriate diagnosis, if significant, that supports the above abnormalities and additional evaluation, monitoring and/or treatment rendered:
Hyponatremia
Abnormal lab value
Other ( please specify)
Use of terms such as suspected, likely, concern for, or probable (associated with a specific diagnosis that is being evaluated, monitored, or treated as if it exists) are acceptable and can be coded in the inpatient setting, when documented at the
time of discharge.
Thank you,
Katelyn Kirby RN
CDI Specialist
[place] Text
Please use your independent medical judgment in providing your response.
--- NOTE | 2024-10-27 16:16 | PN.CDI ---
CDI
- -
CDI:
Physician Documentation Request
Admit Date: 10/24/24 21:34
Dear Doctor Rosalia,
Please review the following and provide your response in the progress notes.
Clinical Indicators:
Pt admitted with sepsis 2/2 to possible PNA on ceftriaxone
Documented in the record, ' CHF - Unknown Type...'
Progress note 10/27,' Complicated by CHF - Unknown TypeContinue current CV med regimen including DAPT, statin, etc.Follow I/Os, daily weights, etc....manage volume on HD....'
Nephrology progress note 10/26, ' Ultrafiltration as blood pressure will tolerate...'
External medical summary 10/24, ' Chronic combined systolic (congestive) and diastolic (congestive) heart failure ...'
10/17 CXR,' Cardiomegaly with mild interstitial prominence which may represent an element of pneumonitis or mild interstitial edema....'
Please provide further specificity regarding the most likely type and acuity of CHF you are evaluating, treating or monitoring.
Acute on chronic Combined CHF
Chronic combined CHF
Other CHF please specify
Other ( please specify)
Use of terms such as suspected, likely, concern for, or probable (associated with a specific diagnosis that is being evaluated, monitored, or treated as if it exists) are acceptable and can be coded in the inpatient setting, when documented at the
time of discharge.
Thank you,
Katelyn Kirby RN
CDI Specialist
[place] Text
Please use your independent medical judgment in providing your response.
[2024-10-27 17:35] LABS: Glucose - Point of Care 256 mg/dl (70-99)
[2024-10-27] MEDS: FEOSOL 162.5 MG PO (18:06)
[2024-10-27 19:40] VITALS: BP 114/55
[2024-10-27] MEDS: VIBRAMYCIN 100 MG PO (21:40)
[2024-10-27] MEDS: ZETIA 10 MG PO (21:40)
[2024-10-27] MEDS: STERILE WATER FOR INJECTION 10 ML IV (21:41)
[2024-10-27] MEDS: LIPITOR 40 MG PO (21:41)
[2024-10-27] MEDS: ROCEPHIN 1000 MG IV (21:41)
[2024-10-27 21:46] LABS: Glucose - Point of Care 287 mg/dl (70-99)
[2024-10-27] MEDS: MELATONIN 3 MG PO (21:51)
[2024-10-27] MEDS: PERCOCET 5/325 1 TABLET PO (21:51)
[2024-10-28] VITALS (7 sets, daily range): BP systolic 108–125; BP diastolic 48–61; PULSE 80; O2SAT 96; BMI 25.2
[2024-10-28 08:05] LABS: Glucose - Point of Care 337 mg/dl (70-99)
[2024-10-28 08:55] LABS: ALT (SGPT) 13 U/L (0-35); AST (SGOT) 14 U/L (14-36); Albumin 3.0 g/dl (3.5-5.0); Alkaline Phosphatase 87 U/L (38-126); Blood Urea Nitrogen 25 mg/dl (7-17); Calcium 8.9 mg/dl (8.4-10.2); Carbon Dioxide 25 mmol/L (22-30); Chloride 97 mmol/L (98-107); Estimated Creatinine Clearance 19 ml/min; Glucose 339 mg/dl (70-99); Potassium 3.7 mmol/L (3.5-5.1); Sodium 131 mmol/L (135-145); Total Protein 6.3 g/dl (6.3-8.2); eGFR 15.87
[2024-10-28 09:03] LABS: Hematocrit 24.3 % (37.0-47.0); Hemoglobin 7.6 g/dL (12.0-16.0); Mean Corp Hgb Conc. 31.3 g/dL (33.0-37.0); Mean Corpuscular Volume 89.7 fL (81.0-99.0); Platelet Count 341 10^3/uL (130-400); Red Cell Dist. Width 17.0 % (11.5-14.5)
[2024-10-28] MEDS: NOVOLOG FLEXPEN-LOW RESISTANCE 4 UNITS SC (09:04)
[2024-10-28] MEDS: ASPIR LOW (ENTERIC COATED) 81 MG PO (09:06)
[2024-10-28] MEDS: FLORASTOR 250 MG PO ×2 (09:07→19:54)
[2024-10-28] MEDS: FIRVANQ 250 MG PO ×4 (09:07→23:07)
[2024-10-28] MEDS: HEPARIN 5000 UNITS SC ×3 (09:08→23:07)
[2024-10-28] MEDS: PLAVIX 75 MG PO (09:08)
[2024-10-28] MEDS: LANTUS 0.1 UNITS SC (09:08)
[2024-10-28] MEDS: IMDUR (EXTENDED RELEASE) 30 MG PO (09:09)
[2024-10-28] MEDS: VIBRAMYCIN 100 MG PO ×2 (09:09→19:54)
[2024-10-28] MEDS: COREG 12.5 MG PO (09:12)
--- NOTE | 2024-10-28 09:58 | W.PN.NEPH.PH ---
Today's Communication / Plan
-
Dialysis tomorrow if patient is still here
Assessment/Plan
-
59y F with PMH significant for ASCVD, ESRD on HD and recent CDiff infection who presents to ED complaining of generalized weakness and fatigue. Patient denies any other specific or focal complaints. She reports multiple prior hospitalizations -
most recently at [facility] about 2 weeks ago where she was diagnosed with CDiff colitis.
She has been on dialysis for about 3 months via permacath
She follows with Dr. Goodwin at [facility] yet to start there. has been at [facility] and [facility]
Renal consult for dialysis management
Impression
ESRD TTS [facility]
Pneumonia
C. difficile
Anemia of chronic disease
Plan
Dialysis tomorrow orders provided
will be doing MWF at [facility]
Ultrafiltration as blood pressure will tolerate
EPO for anemia
On doxycycline for pneumonia
-
-
Date of Service: October 28, 2024
CC / HPI / ROS
-
Chief Complaint:
Pneumonia sepsis
History of Present Illness:
ESRD now transition to Sunday
Remains on doxycycline for pneumonia
Remains on oral vancomycin for C. difficile
Hemodynamically stable on antihypertensives and dry weight
Review of Systems:
No chest pain or shortness of breath
Labs
-
Labs:
WBC 13.7 10^3/uL (4.8-10.8) H 10/28/24 08:25
RBC 2.71 10^6/uL (4.20-5.40) L 10/28/24 08:25
Hgb 7.6 g/dL (12.0-16.0) L 10/28/24 08:25
Hct 24.3 % (37.0-47.0) L 10/28/24 08:25
Plt Count 341 10^3/uL (130-400) 10/28/24 08:25
Sodium 131 mmol/L (135-145) L 10/28/24 08:25
Potassium 3.7 mmol/L (3.5-5.1) 10/28/24 08:25
Chloride 97 mmol/L (98-107) L 10/28/24 08:25
Carbon Dioxide 25 mmol/L (22-30) 10/28/24 08:25
BUN 25 mg/dl (7-17) H 10/28/24 08:25
Creatinine 3.2 mg/dL (0.6-1.0) H 10/28/24 08:25
eGFR 15.87 10/28/24 08:25
Glucose 339 mg/dl (70-99) H 10/28/24 08:25
Calcium 8.9 mg/dl (8.4-10.2) 10/28/24 08:25
Phosphorus 5.2 mg/dl (2.5-4.5) H 10/25/24 06:35
Albumin 3.0 g/dl (3.5-5.0) L 10/28/24 08:25
Physical Exam
-
Vital Signs:
Vital Signs
Temp Pulse Resp BP Pulse Ox
97.9 F 88 18 125/61 96
10/28/24 07:15 10/28/24 07:15 10/28/24 07:15 10/28/24 07:15 10/28/24 07:15
Respiratory:: Bilateral: CTA
Lung Excursion:: Normal
Abdomen:: Soft
Bowel Sounds:: None
Extremity Edema:: +1: Bilateral:
[2024-10-28 11:28] LABS: Glucose - Point of Care 377 mg/dl (70-99)
--- NOTE | 2024-10-28 12:14 | PTCARENOTE ---
Transferred pt from chair back to bed, stand and pivot with assist x 2. After transfer to bed, cleaned up bowel incontinence and replaced foam bandange on sacrum. Pt resituated in bed for comfort. Upon raising HOB pt c/o nausea, then passed out,
unresponsive for couple seconds. At same time tele alarmed asystole - another nurse brought in strip right away. Pt awoke without any intervention after only few seconds of passing out still c/o nausea. Rapid response called,
EKG/accucheck/vitals/labs done. Pt alert and talking, vomited x 1, reported relief of nausea. See [employer] SET UP OPERATOR documentation.
[2024-10-28] MEDS: NOVOLOG FLEXPEN-LOW RESISTANCE 5 UNITS SC ×2 (12:36→17:31)
[2024-10-28 12:42] LABS: Venous Blood Gas B.E. 0.5 mmol/L (-4 to +4); Venous Blood Gas O2 Sat % 94.1 %
[2024-10-28 12:52] LABS: Hematocrit 24.4 % (37.0-47.0); Hemoglobin 7.5 g/dL (12.0-16.0); Mean Corp Hgb Conc. 30.7 g/dL (33.0-37.0); Mean Corpuscular Volume 89.1 fL (81.0-99.0); Platelet Count 348 10^3/uL (130-400); Red Cell Dist. Width 17.1 % (11.5-14.5)
[2024-10-28 13:01] LABS: ALT (SGPT) 13 U/L (0-35); AST (SGOT) 17 U/L (14-36); Albumin 3.2 g/dl (3.5-5.0); Alkaline Phosphatase 85 U/L (38-126); Blood Urea Nitrogen 28 mg/dl (7-17); Calcium 8.7 mg/dl (8.4-10.2); Carbon Dioxide 23 mmol/L (22-30); Chloride 94 mmol/L (98-107); Estimated Creatinine Clearance 18 ml/min; Glucose 347 mg/dl (70-99); Magnesium 2.2 mg/dl (1.6-2.3); Potassium 3.9 mmol/L (3.5-5.1); Sodium 130 mmol/L (135-145); Total Protein 6.5 g/dl (6.3-8.2); eGFR 15.30
[2024-10-28 13:04] LABS: Magnesium 2.1 mg/dl (1.6-2.3)
[2024-10-28 13:16] LABS: Troponin I 0.840 ng/ml
--- NOTE | 2024-10-28 13:40 | W.PN.HOSP.TC ---
Today's Communication/Plan
-
CT Chest
Abx
Cards consult
Trend troponins
ECHO
Monitor on telemetry
Increase lantus dosing
Assessment / Plan
Assessment / Plan
Initial presentation:
Patient is a 59y F with PMH significant for ASCVD, ESRD on HD and recent CDiff infection who presents to ED complaining of generalized weakness and fatigue. Patient denies any other specific or focal complaints. She reports multiple prior
hospitalizations - most recently at [facility] about 2 weeks ago where she was diagnosed with CDiff colitis. She has been on tapering doses of oral vancomycin since that time with improvement in stool consistency. Prior to that, patient was hospitalized
for urinary tract infection.
Patient reports several days of weakness and fatigue. She denies sore throat, fevers / chills, cough / dyspnea, abdominal pain, N/V/D. She states that her urine has been dark appearing. No dysuria or flank pain.
Diagnosis prior to admit
ASCVD (CAD, PAD)
CHF - Unknown Type
Hypertension
DM-II
ESRD on HD
Anemia of CKD
x 3
PTCA with Stent (x 3)
CABG x 4
L 5th Toe Amputation
R IJ HD Catheter
Defibrillator (SICD)
recent c-diff
Hospital course by problem and A/P:
Patient is a 59y F with PMH significant for ASCVD, DM-II and ESRD on HD who presents to ED from local [place] for evaluation of generalized weakness.
# Sepsis
- unknown source
Febrile episode overnight 10/27
-Possible pneumonia
-On Ceftriaxone
-Add atypical coverage
-CXR still with persistent ?pneumonia
-CT Chest still pending
#Rapid Response 10/28
#Syncopal Episode
-most likely vasovagal
-Troponins
-ECHO
-Cards consulted
-Cont on Tele
#Troponin Elevation
-most likely non ischemic myocardial injury 2/2 to CKD
-with syncopal episode, trend troponins
-Cards consulted
# ASCVD (CAD, PAD)
Complicated by CHF - Unknown Type
Continue current CV med regimen including DAPT, statin, etc.
Follow I/Os, daily weights, etc.
Not on diuretic regimen
manage volume on HD.
Obtain records from [facility] for review.
# Dry Gangrene R 2nd Toe
Patient has tentative plans for eventual amputation.
No evidence of surrounding erythema, active infection, etc.
Wound care ordered
# ESRD on HD
R IJ catheter in place. Has been on HD x 3 months per patient.
# Benign Hypertension
Continue current med regimen (presently only on non-HD days).
Adjust dosing / timing as needed for adequate control.
# DM-II
Stable. Continue basal : bolus insulin regimen - increased.
Follow glucose and cover with SSI as needed.
#Recent CDiff Colitis - no diarrhea currently
No current diarrhea. Completing tapering course of oral vancomycin.
Was on BID dosing per taper - increased back to QID for now for prophylaxis while on new abx.
Monitor for any recurrent diarrhea.
Continue contact precautions for now.
# Anemia of CKD
Continue current iron supplementation.
No evidence of active bleeding.
Follow for changes in H&H.
DVT Prophylaxis: Continue Subcut Heparin
Code Status: Full
Total time spent on today's encounter was 53 minutes which included time spent in counseling the patient/family regarding diagnosis and treatment plan as listed above, goals of care, and symptom management. Case was discussed with nursing staff,
specialists, and care coordinators/case management. All labs and imaging personally reviewed by me. Remainder the time spent in detailed review of previous records, lab data, imaging, and other medical provider documentation.
Anticipated Discharge: Today
Subjective/Interval History
-
Date of Service: October 28, 2024
no acute events this morning, rapid response this afternoon upon changing; Back to baseline
Objective Data
-
Labs:
Laboratory Results
10/28/24 10/28/24 10/28/24
08: 12:17 12:34
WBC 13.7 H 14.2 H
Hgb 7.6 L 7.5 L
Hct 24.3 L 24.4 L
Plt Count 341 348
Sodium 131 L Cancelled 130 L
Potassium 3.7 Cancelled 3.9
Chloride 97 L Cancelled 94 L
Carbon Dioxide 25 Cancelled 23
BUN 25 H Cancelled 28 H
Creatinine 3.2 H Cancelled 3.3 H
Glucose 339 H Cancelled 347 H
Calcium 8.9 Cancelled 8.7
Total Bilirubin 0.7 0.6
AST 14 17
ALT 13 13
Alkaline Phosphatase 87 85
Vital Signs:
Vital Signs
Temp Pulse Resp BP Pulse Ox
97.7 F 83 18 111/54 95
10/28/24 11:09 10/28/24 11:09 10/28/24 11:09 10/28/24 11:09 10/28/24 11:09
I&O
10/27/24 10/28/24 10/29/24
06:59 06:59 06:59
Intake Total 1200 / 1200 480 / 480
Balance 1200 / 1200 480 / 480
Review of Systems
-
History Source: Patient
All other systems: Reviewed and negative
Physical Exam
-
General: Well Developed, Well Nourished, No Apparent Distress, Comfortable and Conversant
HEENT: Normocephalic, Atraumatic and Moist Mucous Membranes
Respiratory: Clear to Auscultation
Cardiac: Regular Rhythm and S1/S2
GI: Soft, Nontender and Nondistended
Musculoskeletal: No Clubbing, No Cyanosis and No Edema
Skin: Warm and Dry
Neuro: Awake, Alert and Oriented
Psych: Calm
Data Reviewed
-
Diagnostic Radiology: Report Reviewed by me
Labs: Labs Reviewed by me
--- NOTE | 2024-10-28 14:50 | CON.CAR ---
Addendum entered and electronically signed by Jam Gordon MD 10/28/24 17:24:
I saw and examined the patient.
The MACHINE HAND or PA's note was reviewed and I agree with the note.
Comment: General: Well developed, well nourished in NAD.
Neck: Supple, no JVD, HJR, carotids +2 B/L, no bruits bilaterally.
Heart: Non displaced PMI, RRR, no murmurs, No S3, S4, no rubs.
Lungs: scattered rhonchi
Extremities: No clubbing, cyanosis or edema bilaterally.
Neuro: Grossly nonfocal, awake, alert and oriented x3.
Jeannie has a history of coronary disease status post CABG x 4 with known occlusion of vein graft to OM and vein graft to ramus, stenting of LAD touchdown KIMBROUHG and drug-eluting stent of vein graft to RCA as well as circumflex stenting, ischemic
cardiomyopathy, chronic systolic CHF, PVD, end-stage renal disease on hemodialysis, hypertension, diabetes, chronic anemia requiring transfusions and COPD. She has had multiple hospitalizations at [facility] over the recent months. She had
recurrent syncope and ischemic cardiomyopathy and underwent subcutaneous ICD in September 2024 rather than transvascular ICD given end-stage renal disease on hemodialysis and PVD.
She was admitted with generalized weakness and fatigue. She was noted to have syncope today with a 12-second pause. She also is admitted with C. difficile. Syncope was witnessed by nursing and occurred while she is being placed in bed after
sitting in a chair.
She has a subcutaneous ICD which will need to be interrogated. There is no pacer backup. We may need to consider pacer implant given syncope and pauses but will need to discuss with her top flavor attendant at [facility] as vascular access may be an
issue.
Original Note:
Consultation
Consultation Request
Date/Time Consultation Requested: 10/28/2024
Date/Time Consultation Performed: 10/28/2024
Requesting Provider: Dr. Lindsey
Performing Provider: Thelma Kahn PA-C for Dr. Heidi
Reason for Consultation: Syncope, pause
Medical History
-
History of Present Illness:
Patient is a 59-year-old female with extensive past medical history including complicated cardiac history multiple coronary interventions including CABG x 4 with known occlusion of SVG to OM and SVG to ramus, stenting of LAD at touchdown of KIMBROUGH and
ALICE to SVG of RCA as well as circumflex stenting, ischemic cardiomyopathy, heart failure with reduced ejection fraction, PVD, end-stage renal disease on hemodialysis, hypertension, hyperlipidemia, diabetes, PVD, chronic anemia requiring transfusions
and COPD. She has had multiple hospitalizations at [facility] over the last several months. Due to recurrent syncope and ischemic cardiomyopathy she underwent placement of subcutaneous ICD 09/17/2024 rather than transvascular ICD
given end-stage renal disease on hemodialysis and presence of PVD. She was readmitted late September 2024 with altered mental status and leukocytosis and was found to have C. difficile infection. Now presents to [facility] with generalized weakness and
fatigue. Patient found to have sepsis possibly from UTI or pneumonia. Ongoing IV antibiotics. Around noon on 10/28/2024 patient was being placed in bed after sitting in chair. Staff started to raise HOB when she complained of feeling nauseous then
proceeded to have a syncopal event and was unresponsive. Telemetry showed an 11-second pause. Rapid response was called. Patient regained consciousness fairly quickly and had spontaneous return of sinus rhythm.
Patient reports she had 1 syncopal episode in September with dialysis but does not have longstanding history of syncope. Family (son and ) at bedside who helps to provide and assist with history
Past medical history:
Coronary artery disease
CABG x 4 (patent KIMBROUGH to LAD & SVG to RCA) SVG to OM & SVG to RAMUS {occluded on cath 2018}
H/o [employer]-eluting stents to proximal circumflex with severe in-stent restenosis on cath 05/25/2024
Circumflex stent December 2022
LAD ALICE at touchdown of KIMBROUGH 2018, ALICE to SVG-RCA 2018
Ischemic cardiomyopathy, EF 30%
s/p Vimodi Emblem SubQ ICD (MRI conditional) 09/17/2024
Recurrent syncope
PVD with toe gangrene
History of pleural effusions requiring thoracentesis
Diabetes
Hypertension
Hyperlipidemia
Neuropathy
Chronic hyponatremia
Chronic anemia, has required transfusions
ESRD-HD
COPD
Former smoker
Past Medical History
Past Medical History: Other (see HPI)
Past Surgical History: Cardiac (CABG x 4, cardiac stent x 3, subcutaneous ICD 09/17/2024), (x 3) and Other (Toe amputations, hemodialysis perma cath)
Social History
Tobacco: Former Smoker (Quit 2018)
Alcohol: None
Drug: None
Personal:
Living: Detention ([place] but was living at home prior)
Employment: Disabled
Family History
Family History: Other (brother and mother had stroke)
Allergies / Home Medications
Allergy/AdvReac Type Severity Reaction Status Date / Time
Penicillins Allergy Unknown Verified 03/23/16 15:18
�Medication �Instructions �Recorded �Confirmed �Type
Saccharomyces boulardii 250 mg 250 mg PO BID Supplement 10/24/24 10/24/24 History
capsule (Florastor)
acetaminophen 325 mg tablet 650 mg PO Q6HPRN PRN mild pain 10/24/24 10/24/24 History
(Tylenol)
aspirin 81 mg tablet,delayed 81 mg PO DAILY Blood Clot 10/24/24 10/24/24 History
release Prevention/Tx
atorvastatin 40 mg tablet (Lipitor) 40 mg PO HS High Cholesterol 10/24/24 10/24/24 History
bisacodyl 10 mg rectal suppository 10 mg MD DAILYPRN PRN if no bm 10/24/24 10/24/24 History
(Dulcolax (bisacodyl)) aftr mom
carvedilol 12.5 mg tablet (Coreg) 12.5 mg PO SUTUTHSA@0800 Heart 10/24/24 10/24/24 History
Disease/Condition
clopidogrel 75 mg tablet (Plavix) 75 mg PO DAILY Blood Clot 10/24/24 10/24/24 History
Prevention/Tx
docusate sodium 100 mg capsule 100 mg PO BIDPRN PRN constipation 10/24/24 10/24/24 History
(Colace)
ezetimibe 10 mg tablet (Zetia) 10 mg PO HS High Cholesterol 10/24/24 10/24/24 History
ferrous sulfate 325 mg (65 mg 162.5 mg PO QPM Supplement 10/24/24 10/24/24 History
iron) tablet
heparin (porcine) 5,000 unit/mL 5,000 unit SC TID Blood Clot 10/24/24 10/24/24 History
injection solution Prevention/Tx
insulin glargine 100 unit/mL 10 unit SC HS Diabetes 10/24/24 10/24/24 History
subcutaneous solution
insulin glargine 100 unit/mL 15 unit SC DAILY Diabetes 10/24/24 10/24/24 History
subcutaneous solution
insulin lispro 100 unit/mL 2 sliding scale dose SC AC Diabetes 10/24/24 10/24/24 History
subcutaneous pen
isosorbide mononitrate 30 mg 30 mg PO SUTUTHSA@0800 Blood 10/24/24 10/24/24 History
tablet,extended release 24 hr Pressure
magnesium hydroxide 400 mg/5 mL 2,400 mg PO HSPRN PRN if no bm by 10/24/24 10/24/24 History
oral suspension (Milk of Magnesia) 3rd day
melatonin 3 mg tablet 3 mg PO HSPRN PRN sleep 10/24/24 10/24/24 History
nitroglycerin 0.4 mg sublingual 0.4 mg sublingual [id number] PRN 10/24/24 10/24/24 History
tablet (Nitrostat) chest pains
ondansetron HCl 4 mg tablet 4 mg PO Q8HPRN PRN nasuea 10/24/24 10/24/24 History
oxycodone-acetaminophen 5 mg-325 1 tab PO Q6HPRN PRN moderate pains 10/24/24 10/24/24 History
mg tablet
polyethylene glycol 3350 17 gram 17 g PO DAILYPRN PRN constipation 10/24/24 10/24/24 History
oral powder packet (Miralax)
sennosides 8.6 mg tablet (senna) 17.2 mg PO HSPRN PRN constipation 10/24/24 10/24/24 History
therapeutic multivitamin 1 tab PO DAILY Supplement 10/24/24 10/24/24 History
vancomycin 250 mg capsule 250 mg PO DIRECTED Infection 10/24/24 10/24/24 History
(Vancocin)
Review of Systems
-
History Source: Patient and Family
Physical Exam
Vital Signs
Temp Pulse Resp BP Pulse Ox
97.7 F 83 18 111/54 95
10/28/24 11:09 10/28/24 11:09 10/28/24 11:09 10/28/24 11:09 10/28/24 11:09
GEN: Chronically ill looking female lying in bed in no acute distress
HEENT: supple, anicteric, mmm
LUNGS: Decreased breath sounds at left base otherwise CTA, no wheezes/rales
CV: Reg, S1/S2, 1/6 sys murmur
ABD: soft, BS+, NT/ND
EXT: No edema, clubbing or cyanosis
NEURO: Gross non-focal
SKIN: No rash, warm, dry, pink
Lab Results
10/28/24 12:34
10/28/24 12:34
Troponin I 0.840 ng/ml H* 10/28/24 12:34
Impression / Plan
-
PCP: Simon Cota
Credit Administration Specialist: Dr. Adi Alas
Fast Food Worker: Dr. Peoples
Impression:
Presents 10/24/2024 with generalized weakness
Sepsis
Pneumonia
UTI
Sacral wound infection
Gangrenous right second toe
Syncope with rapid response 10/28/2024
Coronary artery disease
CABG x 4 (patent KIMBROUGH to LAD & SVG to RCA) SVG to OM & SVG to RAMUS {occluded on cath 2018}
H/o Synergy Drug-eluting stents to proximal circumflex with severe in-stent restenosis on cath 05/25/2024
Circumflex stent December 2022
LAD ALICE at touchdown of KIMBROUGH 2018, ALICE to SVG-RCA 2018
Ischemic cardiomyopathy, EF 30%
s/p Vimodi Emblem SubQ ICD (MRI conditional) 09/17/2024
Recurrent syncope
PVD with toe gangrene
History of pleural effusions requiring thoracentesis
Diabetes
Hypertension
Hyperlipidemia
Neuropathy
Chronic hyponatremia
Chronic anemia, has required transfusions
ESRD-HD
COPD
Former smoker
Echocardiogram 05/10/2024: EF 30%. Moderate global LV hypokinesis. Stage III diastolic dysfunction, restrictive filling, mildly dilated left atrium.. Moderate MR. Mild TR. PAP 38 mmHg.
Echo 10/01/2018: EF 45%, hypokinesis of inferolateral and inferoseptal smith. Moderate LVH. Mild MR
Cardiac catheterization 05/22/2024 ([facility]): LM: Patent. LAD: Proximal occlusion with KIMBROUGH to LAD. Circumflex: Proximal stent with severe in-stent restenosis, distal to stented segment 95% eccentric stenosis. RCA EVENT STAFF MEMBER. SVG to OM occluded. SVG to
RCA patent. KIMBROUGH to LAD patent with minimal disease distal to touchdown. 'Conclusion patent KIMBROUGH to LAD, SVG to RCA. Severe in-stent restenosis of proximal left circumflex stent with severe disease distal to the stented segment. There is already
2 layers of stents in this area and we were unable to cross with wire. Recommend continued medical management'
RA 7 mmHg; RV 56/3 mmHg; PA 58/23 with a mean of 36 mmHg; PCW 20 mmHg; LV 154/4, MAP 91mmhg cardiac output 4.09 l/min, cardiac index 2.12 L/min/m2
Plan:
-Presented 10/24/2024 with generalized weakness and found to have sepsis possibly due to UTI and/or pneumonia
- Witnessed syncopal episode on 10/28/2024 with 11-second pause around noon, also noted to have 7-8 beats of VT earlier in the morning. Given pause would consider holding Coreg for now.
- SubQ ICD was placed at [facility] by Dr. Peoples 09/17/24.
- Unclear why patient did not get traditional ICD. Will need to reach out to top flavor attendant/electrophysiology at [facility] to discuss. Per review of outpatient records it may be they felt she was high risk for infection given ongoing HD or she may not
have vascular access.
-Monitor EKG closely for QT prolongation
-Per review of labs sodium 130, potassium 3.9, magnesium 2.2. Keep K greater than 4, mag greater than 2
-Abnormal troponin, initial 0.840, repeat 0.855. Troponin was 0.034 on admission
-EKG 10/28/2024 with sinus rhythm with IVCD, inferior and anterolateral T wave abnormality more pronounced than prior EKG, QTc 504 ms
-Patient has known multivessel coronary artery disease with 2 of 4 bypass grafts occluded on most recent cath in 05/2024. She has multiple layers of circumflex stents and wire was unable to be passed on prior catheterization in May 2024 at [facility]. Continuing aggressive medical therapy for her CAD
-Continue Plavix, isosorbide, aspirin and statin. As noted above consider holding or reducing dose of Coreg
-Consider transfusion as hemoglobin 7.5, acute on chronic anemia may be exacerbating demand ischemia
-Add on lipids to a.m. labs. Patient already on atorvastatin and Zetia
-Continue antibiotics for pneumonia
HPI 10/28/2024:
Patient is a 59-year-old female with extensive past medical history including complicated cardiac history multiple coronary interventions including CABG x 4 with known occlusion of SVG to OM and SVG to ramus, stenting of LAD at touchdown of KIMBROUGH and
ALICE to SVG of RCA as well as circumflex stenting, ischemic cardiomyopathy, heart failure with reduced ejection fraction, PVD, end-stage renal disease on hemodialysis, hypertension, hyperlipidemia, diabetes, PVD, chronic anemia requiring transfusions
and COPD. She has had multiple hospitalizations at [facility] over the last several months. Due to recurrent syncope and ischemic cardiomyopathy she underwent placement of subcutaneous ICD 09/17/2024 rather than transvascular ICD
given end-stage renal disease on hemodialysis and presence of PVD. She was readmitted late September 2024 with altered mental status and leukocytosis and was found to have C. difficile infection. Now presents to [facility] with generalized weakness and
fatigue. Patient found to have sepsis possibly from UTI or pneumonia. Ongoing IV antibiotics. Around noon on 10/28/2024 patient was being placed in bed after sitting in chair. Staff started to raise HOB when she complained of feeling nauseous then
proceeded to have a syncopal event and was unresponsive. Telemetry showed an 11-second pause. Rapid response was called. Patient regained consciousness fairly quickly and had spontaneous return of sinus rhythm.
Patient reports she had 1 syncopal episode in September with dialysis but does not have longstanding history of syncope. Family (son and ) at bedside who helps to provide and assist with history
Data Reviewed
-
EKG: Report Reviewed by me, Discussed with Physician, Discussed with Nurse, Discussed with Patient and Discussed with Family
Radiology: Report Reviewed by me, Discussed with Physician, Discussed with Nurse, Discussed with Patient and Discussed with Family
Labs: Labs Reviewed by me, Discussed with Physician, Discussed with Nurse, Discussed with Patient and Discussed with Family
Old Records: Reviewed
[2024-10-28 15:31] LABS: Troponin I 0.855 ng/ml
--- NOTE | 2024-10-28 15:32 | CM ---
Chart reviewed medical work up in progress. Plan is for patient to return to [facility] when stable, ESRD on HD.
[facility]
Report [phone]
[2024-10-28 16:44] LABS: Glucose - Point of Care 360 mg/dl (70-99)
[2024-10-28] MEDS: FEOSOL 162.5 MG PO (17:32)
[2024-10-28] MEDS: ROCEPHIN 1000 MG IV (19:54)
[2024-10-28] MEDS: PERCOCET 5/325 1 TABLET PO (19:54)
[2024-10-28] MEDS: STERILE WATER FOR INJECTION 10 ML IV (19:54)
[2024-10-28 21:17] LABS: Troponin I 0.726 ng/ml
[2024-10-28 21:54] LABS: Glucose - Point of Care 294 mg/dl (70-99)
[2024-10-28] MEDS: MELATONIN 3 MG PO (23:06)
[2024-10-28] MEDS: ZETIA 10 MG PO (23:06)
[2024-10-28] MEDS: LIPITOR 40 MG PO (23:06)
[2024-10-28] MEDS: LANTUS 0.12 UNITS SC (23:07)
[2024-10-29 03:02] LABS: Troponin I 0.627 ng/ml
[2024-10-29 03:20] VITALS: BP 124/59
[2024-10-29 07:30] VITALS: BP 133/63
[2024-10-29 08:00] LABS: Glucose - Point of Care 287 mg/dl (70-99)
[2024-10-29] MEDS: NOVOLOG FLEXPEN-LOW RESISTANCE 3 UNITS SC (08:37)
[2024-10-29] MEDS: FIRVANQ 250 MG PO ×4 (08:38→22:22)
[2024-10-29] MEDS: LANTUS 0.12 UNITS SC ×2 (08:38→22:22)
[2024-10-29] MEDS: ASPIR LOW (ENTERIC COATED) 81 MG PO (08:38)
[2024-10-29] MEDS: VIBRAMYCIN 100 MG PO (08:38)
[2024-10-29] MEDS: PLAVIX 75 MG PO (08:38)
[2024-10-29] MEDS: FLORASTOR 250 MG PO ×2 (08:39→20:48)
[2024-10-29] MEDS: HEPARIN 5000 UNITS SC ×3 (08:40→22:17)
[2024-10-29 08:46] LABS: Hematocrit 23.6 % (37.0-47.0); Hemoglobin 7.4 g/dL (12.0-16.0); Mean Corp Hgb Conc. 31.4 g/dL (33.0-37.0); Mean Corpuscular Volume 91.5 fL (81.0-99.0); Platelet Count 361 10^3/uL (130-400); Red Cell Dist. Width 16.9 % (11.5-14.5)
--- NOTE | 2024-10-29 09:00 | CM ---
PT OT indicates rehab when dc at [facility].
MAX assist of 2 . Will need ambulance .
Continues with HD 3 x weekly.
Pt assisted at [facility] .
[facility]
Report [phone]

PLAN Return to [facility] Pt when medically ready
[2024-10-29 09:16] LABS: Troponin I 0.576 ng/ml
--- NOTE | 2024-10-29 10:09 | W.PN.CARDCBS ---
Addendum entered and electronically signed by Jose Tran DO 10/29/24 14:02:
I saw and examined the patient.
The Attache's note was reviewed and I agree with the note.
Comment:
Plan:
No additional significant pauses since Coreg held.
In light of significant conduction disease including evidence of second-degree heart block and significant pauses, discussed with EP regarding permanent pacemaker placement.
Access is a concern and patient may be candidate for Micra leadless permanent pacemaker. She has subcu ICD which could not provide pacing support
Continue volume control with hemodialysis for end-stage renal disease.
Continue medical therapy for non-NM troponin
Recent cardiac catheterization May 2024 continue medical therapy for CAD.
Continue dual antiplatelet therapy Imdur and statin.
Consider transfusion for significant anemia as acute on chronic anemia could be exacerbating demand ischemia.
Discussed with nursing.
Original Note:
Today's Communication / Plan
-
No additional pauses now that Coreg is on hold, but will resume in light of ICM once PPM in place
SQ ICD cannot provide pacing support, Micra leadless PPM would be an option and patient is interested
Impression / Plan
-
PCP: Simon Cota
Hebrew Cantor: Dr. Adi Alas
Modeling Analyst: Dr. Peoples
Impression:
Presents 10/24/2024 with generalized weakness
Recent admission to [facility] for C diff early 10/2024
Sepsis
Pneumonia
UTI
Sacral wound infection
Gangrenous right second toe
Syncope with rapid response 10/28/2024
Sinus pause 11 seconds on tele 10/28/24
Coronary artery disease
CABG x 4 (patent KIMBROUGH to LAD & SVG to RCA) SVG to OM & SVG to RAMUS unknown date
LAD ALICE at touchdown of KIMBROUGH 2018, ALICE to SVG-RCA, occluded SVG to Ramus by cath 2018
Circumflex stent December 2022
h/o Synergy Drug-eluting stents to proximal circumflex with severe in-stent restenosis on cath 05/25/2024
Ischemic cardiomyopathy, EF 30%
s/p [employer] Emblem SubQ ICD (MRI conditional) 09/17/2024
Recurrent syncope
PVD with toe gangrene
History of pleural effusions requiring thoracentesis
Diabetes
Hypertension
Hyperlipidemia
Neuropathy
Chronic hyponatremia
Chronic anemia, has required transfusions
ESRD-HD
COPD
Former smoker
Echo 10/01/2018: EF 45%, hypokinesis of inferolateral and inferoseptal smith. Moderate LVH. Mild MR
Echo 05/10/2024: EF 30%. Moderate global LV hypokinesis. Stage III diastolic dysfunction, restrictive filling, mildly dilated left atrium.. Moderate MR. Mild TR. PAP 38 mmHg.
Echo 10/28/2024: EF 25 to 30%, stage III diastolic dysfunction, global hypokinesis with possible septal dyskinesis, moderate MR
Cardiac catheterization 05/22/2024 ([facility]): LM: Patent. LAD: Proximal occlusion with KIMBROUGH to LAD. Circumflex: Proximal stent with severe in-stent restenosis, distal to stented segment 95% eccentric stenosis. RCA SENIOR PRODUCT INTEGRITY ENGINEER. SVG to OM occluded. SVG to
RCA patent. KIMBROUGH to LAD patent with minimal disease distal to touchdown. 'Conclusion patent KIMBROUGH to LAD, SVG to RCA. Severe in-stent restenosis of proximal left circumflex stent with severe disease distal to the stented segment. There is already
2 layers of stents in this area and we were unable to cross with wire. Recommend continued medical management'
RA 7 mmHg; RV 56/3 mmHg; PA 58/23 with a mean of 36 mmHg; PCW 20 mmHg; LV 154/4, MAP 91mmhg cardiac output 4.09 l/min, cardiac index 2.12 L/min/m2
Plan:
-Patient came to [facility] from [place] with an episode of syncope and within 24 hours of admission had a witnessed 11-second pause and had an episode of unresponsiveness associated with that pause. Cardiology was consulted.
-Records requested, obtained and reviewed by cardiology and are summarized above. Patient had a [employer] subcutaneous ICD placed at [facility] on 09/17/2024, subcutaneous ICD was chosen due to vascular access issues with patient on hemodialysis
and possibly for concern of infection.
-Subcutaneous ICD does not have backup pacemaker function. Reviewed with patient that telemetry on 10/28/2024 showed an 11-second pause that was symptomatic and PPM recommended. We discussed previous issues with vascular access and the possibility
of implanting a Micra leadless PPM system and patient would be open to this. I asked patient if she makes all of her own medical decisions and she says that she does, but will generally lupine either her sister or her daughter and she gave me
permission to talk to them later on 10/29/2024.
-Patient with sepsis on admission and is receiving Zosyn and vancomycin. Patient also recently had C. difficile colitis treated at [facility] and reports diarrhea is improved. We will await the clearing of these infectious issues and plan on Micra
placement possibly 10/31/2024.
-Echo from 10/28/2024 was reviewed by me on 10/29/2024 and as summarized above. EF is 25 to 30% which is similar to echo she had at [facility] on 05/10/2024 when EF was 30%. This is presumably an ischemic CM.
-Patient with history of CABG and PCI, last cardiac cath was 05/25/2024. Patient remains on aspirin and Plavix.
-On telemetry review patient also had 7 beats NSVT on 10/28/2024, this appeared to be asymptomatic. Patient with known ICM and has subcutaneous ICD in place. Coreg was held for possible contribution to sinus pause, but we will resume following
Micra placement.
-Patient is not chronically on PETER/ARB/ARNI/aldosterone antagonist due to ESRD on HD.
-QTc 504 ms on ECG from 10/28/2024, recheck ECG 10/29/2024, ordered by me.
-Troponin was 0.034 on admission and peaked at 0.855. No complaints of chest pain. EF and global hypokinesis similar by echo. Will manage as nonischemic myocardial injury troponin elevation in the setting of anemia, syncope and sinus pause.
-Patient has known MV CAD with 2 of 4 bypass grafts occluded on most recent cath in 05/2024. She has multiple layers of circumflex stents and wire was unable to be passed on prior catheterization in May 2024 at [facility]. Continuing aggressive medical
therapy for her CAD
-Continue Plavix, isosorbide, aspirin and statin.
-Consider transfusion as hemoglobin 7.5, acute on chronic anemia may be exacerbating demand ischemia
-LDL 21 and outpatient doses of atorvastatin 40 mg daily plus Zetia 10 mg daily have been continued
HPI 10/28/2024:
Patient is a 59-year-old female with extensive past medical history including complicated cardiac history multiple coronary interventions including CABG x 4 with known occlusion of SVG to OM and SVG to ramus, stenting of LAD at touchdown of KIMBROGUH and
ALICE to SVG of RCA as well as circumflex stenting, ischemic cardiomyopathy, heart failure with reduced ejection fraction, PVD, end-stage renal disease on hemodialysis, hypertension, hyperlipidemia, diabetes, PVD, chronic anemia requiring transfusions
and COPD. She has had multiple hospitalizations at [facility] over the last several months. Due to recurrent syncope and ischemic cardiomyopathy she underwent placement of subcutaneous ICD 09/17/2024 rather than transvascular ICD
given end-stage renal disease on hemodialysis and presence of PVD. She was readmitted late September 2024 with altered mental status and leukocytosis and was found to have C. difficile infection. Now presents to [facility] with generalized weakness and
fatigue. Patient found to have sepsis possibly from UTI or pneumonia. Ongoing IV antibiotics. Around noon on 10/28/2024 patient was being placed in bed after sitting in chair. Staff started to raise HOB when she complained of feeling nauseous then
proceeded to have a syncopal event and was unresponsive. Telemetry showed an 11-second pause. Rapid response was called. Patient regained consciousness fairly quickly and had spontaneous return of sinus rhythm.
Patient reports she had 1 syncopal episode in September with dialysis but does not have longstanding history of syncope. Family (son and ) at bedside who helps to provide and assist with history
Progress Note - Hebrew Cantor
Subjective
Date of Service: October 29, 2024
She feels well, says no diarrhea today
Objective
Labs:
10/29/24 08:28
Labs
Hgb 7.4 g/dL (12.0-16.0) L 10/29/24 08:28
Hct 23.6 % (37.0-47.0) L 10/29/24 08:28
Plt Count 361 10^3/uL (130-400) 10/29/24 08:28
Sodium 130 mmol/L (135-145) L 10/28/24 12:34
Potassium 3.9 mmol/L (3.5-5.1) 10/28/24 12:34
BUN 28 mg/dl (7-17) H 10/28/24 12:34
Creatinine 3.3 mg/dL (0.6-1.0) H 10/28/24 12:34
Glucose 347 mg/dl (70-99) H 10/28/24 12:34
Troponins
10/28/24 10/28/24 10/28/24
12:34 14:15 20:18
Troponin I 0.840 H* 0.855 H* 0.726 H*
10/29/24 10/29/24
02:11 08:28
Troponin I 0.627 H* 0.576 H*
Vital Signs and I&O:
Vital Signs
Temp Pulse Resp BP Pulse Ox
97.6 F 78 18 133/63 98
10/29/24 07:30 10/29/24 07:30 10/29/24 07:30 10/29/24 07:30 10/29/24 07:30
Vital Signs
Temp Pulse Resp BP Pulse Ox
97.6 F 78 18 133/63 98
10/29/24 07:30 10/29/24 07:30 10/29/24 07:30 10/29/24 07:30 10/29/24 07:30
Intake & Output
10/27/24 10/28/24 10/29/24 10/30/24
06:59 06:59 06:59 06:59
Intake Total 1200 / 1200 480 / 480 720 / 720
Balance 1200 / 1200 480 / 480 720 / 720
Physical Exam
Physical Exam
GEN: NAD, AAO x 3
LUNGS: 2 L NC. No wheeze
CV: SR on telemetry. Reg
EXT: No edema B/L LE
[2024-10-29 10:15] LABS: ALT (SGPT) 12 U/L (0-35); AST (SGOT) 13 U/L (14-36); Albumin 3.0 g/dl (3.5-5.0); Alkaline Phosphatase 85 U/L (38-126); Blood Urea Nitrogen 34 mg/dl (7-17); Calcium 9.3 mg/dl (8.4-10.2); Carbon Dioxide 23 mmol/L (22-30); Chloride 94 mmol/L (98-107); Estimated Creatinine Clearance 14 ml/min; Glucose 266 mg/dl (70-99); HDL Cholesterol 41 mg/dl; LDL Cholesterol, Calculated 21 mg/dl; Potassium 4.2 mmol/L (3.5-5.1); Sodium 129 mmol/L (135-145); Total Protein 6.4 g/dl (6.3-8.2); Very Low Density Lipoprotein 36 mg/dl (0-30); eGFR 10.83
[2024-10-29] MEDS: ZOSYN 50 IV ×2 (11:35→22:55)
[2024-10-29 11:45] VITALS: BP 131/65
[2024-10-29] MEDS: RETACRIT 10000 UNITS IV (12:02)
[2024-10-29 12:11] LABS: Glucose - Point of Care 212 mg/dl (70-99)
--- NOTE | 2024-10-29 13:03 | W.PN.NEPH.HD ---
Progress Note - Hemodialysis
-
Date of Service: October 29, 2024
Duration: 30 minutes and 3 hours
Potassium Bath: 2
Calcium Bath: 2.5
Opti-Dialyzer: 160
Ultrafiltration: Other (2kg)
Blood Flow: 400
Dialysate Flow: 600
Heparin: none
EPO: 10K
--- NOTE | 2024-10-29 13:55 | W.PN.HOSP.TC ---
Today's Communication/Plan
-
Cards plan for PPM
resume BB
switch to Zosyn
Monitor WBC
Assessment / Plan
Assessment / Plan
Initial presentation:
Patient is a 59y F with PMH significant for ASCVD, ESRD on HD and recent CDiff infection who presents to ED complaining of generalized weakness and fatigue. Patient denies any other specific or focal complaints. She reports multiple prior
hospitalizations - most recently at [facility] about 2 weeks ago where she was diagnosed with CDiff colitis. She has been on tapering doses of oral vancomycin since that time with improvement in stool consistency. Prior to that, patient was hospitalized
for urinary tract infection.
Patient reports several days of weakness and fatigue. She denies sore throat, fevers / chills, cough / dyspnea, abdominal pain, N/V/D. She states that her urine has been dark appearing. No dysuria or flank pain.
Diagnosis prior to admit
ASCVD (CAD, PAD)
CHF - Unknown Type
Hypertension
DM-II
ESRD on HD
Anemia of CKD
x 3
PTCA with Stent (x 3)
CABG x 4
L 5th Toe Amputation
R IJ HD Catheter
Defibrillator (SICD)
recent c-diff
Hospital course by problem and A/P:
Patient is a 59y F with PMH significant for ASCVD, DM-II and ESRD on HD who presents to ED from local [place] for evaluation of generalized weakness.
# Sepsis
- unknown source
Febrile episode overnight 10/27
-Possible pneumonia
� With persistent leukocytosis and clear evidence of consolidation versus mass on CT, will switch ceftriaxone to Zosyn
�Monitor leukocytosis
�Will need close imaging outpatient after antibiotic course
#Rapid Response 10/28
#Syncopal Episode
-Noted 12-second pause
-ECHO�EF 25 to 30%, stage III diastolic dysfunction
-Cards consulted
-Cont on Tele
� Will most likely need pacemaker, defer to cardiology
� Resume beta-guillermina as needed for cardiomyopathy
#Troponin Elevation
-most likely non ischemic myocardial injury 2/2 to CKD alogn with pause
-Cards consulted
# ASCVD (CAD, PAD)
Complicated by CHF - Unknown Type
Continue current CV med regimen including DAPT, statin, etc.
Follow I/Os, daily weights, etc.
Not on diuretic regimen
manage volume on HD.
Obtain records from [facility] for review.
# Dry Gangrene R 2nd Toe
Patient has tentative plans for eventual amputation.
No evidence of surrounding erythema, active infection, etc.
Wound care ordered
# ESRD on HD
R IJ catheter in place. Has been on HD x 3 months per patient.
# Benign Hypertension
Continue current med regimen (presently only on non-HD days).
Adjust dosing / timing as needed for adequate control.
# DM-II
Stable. Continue basal : bolus insulin regimen - increased.
Follow glucose and cover with SSI as needed.
#Recent CDiff Colitis - no diarrhea currently
No current diarrhea. Completing tapering course of oral vancomycin.
Was on BID dosing per taper - increased back to QID for now for prophylaxis while on new abx.
Monitor for any recurrent diarrhea.
Continue contact precautions for now.
# Anemia of CKD
Continue current iron supplementation.
No evidence of active bleeding.
Follow for changes in H&H.
DVT Prophylaxis: Continue Subcut Heparin
Code Status: Full
Total time spent on today's encounter was 52 minutes which included time spent in counseling the patient/family regarding diagnosis and treatment plan as listed above, goals of care, and symptom management. Case was discussed with nursing staff,
specialists, and care coordinators/case management. All labs and imaging personally reviewed by me. Remainder the time spent in detailed review of previous records, lab data, imaging, and other medical provider documentation.
Anticipated Discharge: > 48 hours
Subjective/Interval History
-
Date of Service: October 29, 2024
No acute events overnight, no further pauses.
Objective Data
-
Labs:
Laboratory Results
10/29/24
08:28
WBC 14.9 H
Hgb 7.4 L
Hct 23.6 L
Plt Count 361
Sodium 129 L
Potassium 4.2
Chloride 94 L
Carbon Dioxide 23
BUN 34 H
Creatinine 4.4 H*
Glucose 266 H
Calcium 9.3
Total Bilirubin 0.6
AST 13 L
ALT 12
Alkaline Phosphatase 85
Vital Signs:
Vital Signs
Temp Pulse Resp BP Pulse Ox
97.4 F 73 18 131/65 100
10/29/24 11:45 10/29/24 11:45 10/29/24 11:45 10/29/24 11:45 10/29/24 11:45
I&O
10/28/24 10/29/24 10/30/24
06:59 06:59 06:59
Intake Total 480 / 480 720 / 720
Balance 480 / 480 720 / 720
Review of Systems
-
History Source: Patient
All other systems: Reviewed and negative
Data Reviewed
-
Diagnostic Radiology: Report Reviewed by me
CT Scan: Report Reviewed by me
Labs: Labs Reviewed by me
[2024-10-29] MEDS: NOVOLOG FLEXPEN-LOW RESISTANCE 2 UNITS SC ×2 (15:30→17:52)
[2024-10-29] MEDS: PERCOCET 5/325 1 TABLET PO ×2 (16:07→22:32)
--- NOTE | 2024-10-29 16:58 | W.PN.UPDATE ---
Update Note
Progress Note Update
Talked with patient, sister and daughter in the room for about 15 minutes this evening. We reviewed previous indications for subcutaneous defibrillator and current indication for Micra leadless PPM. We discussed the patient's specific indications
for leadless PPM system. We discussed a battery longevity of 10 to 12 years on average, but that individual battery longevity would fluctuate based on how frequently the system is used. We discussed waiting for infectious issues to clear, patient
had no diarrhea when I saw her this morning and now reports increase in diarrhea.
[2024-10-29 17:18] LABS: Glucose - Point of Care 239 mg/dl (70-99)
[2024-10-29] MEDS: FERROUS SULFATE ORAL LIQUID 162.5 MG PO (17:51)
[2024-10-29 19:00] VITALS: BP 100/46
[2024-10-29 20:40] LABS: Hepatitis B Surface Antigen Negative (Negative)
--- NOTE | 2024-10-29 21:04 | PTCARENOTE ---
Pt wants to wait until the morning.
[2024-10-29 21:19] LABS: Glucose - Point of Care 296 mg/dl (70-99)
[2024-10-29] MEDS: ZETIA 10 MG PO (22:21)
[2024-10-29] MEDS: LIPITOR 40 MG PO (22:22)
[2024-10-29] MEDS: STERILE WATER FOR INJECTION IV (22:54)
[2024-10-29 23:00] VITALS: BP 120/56
[2024-10-30] VITALS (8 sets, daily range): BP systolic 119–133; BP diastolic 49–68; PULSE 79; O2SAT 98; BMI 23.6
[2024-10-30 07:26] LABS: Hematocrit 24.6 % (37.0-47.0); Hemoglobin 7.6 g/dL (12.0-16.0); Mean Corp Hgb Conc. 30.9 g/dL (33.0-37.0); Mean Corpuscular Volume 93.2 fL (81.0-99.0); Platelet Count 365 10^3/uL (130-400); Red Cell Dist. Width 17.1 % (11.5-14.5)
[2024-10-30 07:57] LABS: ALT (SGPT) 12 U/L (0-35); AST (SGOT) 15 U/L (14-36); Albumin 3.1 g/dl (3.5-5.0); Alkaline Phosphatase 88 U/L (38-126); Blood Urea Nitrogen 15 mg/dl (7-17); Calcium 8.8 mg/dl (8.4-10.2); Carbon Dioxide 26 mmol/L (22-30); Chloride 98 mmol/L (98-107); Estimated Creatinine Clearance 21 ml/min; Glucose 138 mg/dl (70-99); Potassium 3.6 mmol/L (3.5-5.1); Sodium 135 mmol/L (135-145); Total Protein 6.4 g/dl (6.3-8.2); eGFR 18.63
[2024-10-30 07:59] LABS: Glucose - Point of Care 157 mg/dl (70-99)
[2024-10-30] MEDS: NOVOLOG FLEXPEN-LOW RESISTANCE 1 UNITS SC (08:03)
[2024-10-30] MEDS: LANTUS 0.12 UNITS SC ×2 (08:04→22:09)
[2024-10-30] MEDS: FIRVANQ 250 MG PO ×4 (08:04→22:08)
[2024-10-30] MEDS: PLAVIX 75 MG PO (08:05)
[2024-10-30] MEDS: HEPARIN 5000 UNITS SC ×3 (08:05→22:10)
[2024-10-30] MEDS: FLORASTOR 250 MG PO ×2 (08:05→20:23)
[2024-10-30] MEDS: IMDUR (EXTENDED RELEASE) 30 MG PO (08:05)
[2024-10-30] MEDS: ASPIR LOW (ENTERIC COATED) 81 MG PO (08:05)
--- NOTE | 2024-10-30 10:06 | PTCARENOTE ---
after gentle PT, while resting in bed upright afterward, pt experienced 6 sec pause on tele monitor, provider notified, also Dr Medina reviewed tele strip and noted heart block. He will see if it's possible to have SICD done sooner than tomorrow. It
is likely she will continue to have these episodes until intervention occurs.No new orders at this time
[2024-10-30] MEDS: ZOSYN 50 IV ×2 (11:05→22:08)
--- NOTE | 2024-10-30 11:35 | W.PN.NEPH.PH ---
Today's Communication / Plan
-
Dialysis tomorrow
Assessment/Plan
-
59y F with PMH significant for ASCVD, ESRD on HD and recent CDiff infection who presents to ED complaining of generalized weakness and fatigue. Patient denies any other specific or focal complaints. She reports multiple prior hospitalizations -
most recently at [facility] about 2 weeks ago where she was diagnosed with CDiff colitis.
She has been on dialysis for about 3 months via permacath
She follows with Dr. Goodwin at [facility] yet to start there. has been at [facility] and [facility]
Renal consult for dialysis management
Impression
ESRD TTS [facility]
Pneumonia
C. difficile
Anemia of chronic disease
CHF ejection fraction 25%
Plan
Dialysis tomorrow orders provided
will be doing MWF at [facility]
Ultrafiltration as blood pressure will tolerate
EPO for anemia
For PPM
-
-
Date of Service: October 30, 2024
CC / HPI / ROS
-
Chief Complaint:
Pneumonia sepsis
History of Present Illness:
ESRD now transition to Sunday
Remains on doxycycline for pneumonia
Remains on oral vancomycin for C. difficile
Hemodynamically stable on antihypertensives and dry weight
Review of Systems:
No chest pain or shortness of breath
Labs
-
Labs:
WBC 15.3 10^3/uL (4.8-10.8) H 10/30/24 06:43
RBC 2.64 10^6/uL (4.20-5.40) L 10/30/24 06:43
Hgb 7.6 g/dL (12.0-16.0) L 10/30/24 06:43
Hct 24.6 % (37.0-47.0) L 10/30/24 06:43
Plt Count 365 10^3/uL (130-400) 10/30/24 06:43
Sodium 135 mmol/L (135-145) 10/30/24 06:43
Potassium 3.6 mmol/L (3.5-5.1) 10/30/24 06:43
Chloride 98 mmol/L (98-107) 10/30/24 06:43
Carbon Dioxide 26 mmol/L (22-30) 10/30/24 06:43
BUN 15 mg/dl (7-17) 10/30/24 06:43
Creatinine 2.8 mg/dL (0.6-1.0) H 10/30/24 06:43
eGFR 18.63 10/30/24 06:43
Glucose 138 mg/dl (70-99) H 10/30/24 06:43
Calcium 8.8 mg/dl (8.4-10.2) 10/30/24 06:43
Phosphorus 4.1 mg/dl (2.5-4.5) 10/28/24 12:34
Albumin 3.1 g/dl (3.5-5.0) L 10/30/24 06:43
Physical Exam
-
Vital Signs:
Vital Signs
Temp Pulse Resp BP Pulse Ox
98.6 F 83 18 133/61 99
10/30/24 07:30 10/30/24 07:30 10/30/24 07:30 10/30/24 07:30 10/30/24 07:30
Respiratory:: Bilateral: CTA
Lung Excursion:: Normal
Abdomen:: Soft
Bowel Sounds:: None
Extremity Edema:: +1: Bilateral:
[2024-10-30 11:57] LABS: Glucose - Point of Care 227 mg/dl (70-99)
[2024-10-30] MEDS: PERCOCET 5/325 1 TABLET PO ×2 (11:59→18:05)
[2024-10-30] MEDS: NOVOLOG FLEXPEN-LOW RESISTANCE 2 UNITS SC ×2 (13:00→18:02)
--- NOTE | 2024-10-30 13:00 | WOUNDNOTE ---
[facility] RN note: Patient is on a [employer]ac[employer] air bed. Appetite good. Patient incontinent of small amount loose brown stool and small amount of urine. Tiana care given. Sacral shaped silicone border foam changed on sacrum. Sacrum appearance discolored
scarred skin. R inner buttocks with 2 bruised/fragile appearing skin areas (not new) suspect r/t friction and moisture. Silicone border foam applied to R buttocks. Patient turned to L semi side lying position using an air chair cushion. Heels off
bed with her fiber filled TruVue lite boots. Patient's sister with patient. Updated PCT Flex.
--- NOTE | 2024-10-30 13:38 | W.PN.HOSP.TC ---
Today's Communication/Plan
-
Abx
PPM tentatively sunday
Assessment / Plan
Assessment / Plan
Initial presentation:
Patient is a 59y F with PMH significant for ASCVD, ESRD on HD and recent CDiff infection who presents to ED complaining of generalized weakness and fatigue. Patient denies any other specific or focal complaints. She reports multiple prior
hospitalizations - most recently at [facility] about 2 weeks ago where she was diagnosed with CDiff colitis. She has been on tapering doses of oral vancomycin since that time with improvement in stool consistency. Prior to that, patient was hospitalized
for urinary tract infection.
Patient reports several days of weakness and fatigue. She denies sore throat, fevers / chills, cough / dyspnea, abdominal pain, N/V/D. She states that her urine has been dark appearing. No dysuria or flank pain.
Diagnosis prior to admit
ASCVD (CAD, PAD)
CHF - Unknown Type
Hypertension
DM-II
ESRD on HD
Anemia of CKD
x 3
PTCA with Stent (x 3)
CABG x 4
L 5th Toe Amputation
R IJ HD Catheter
Defibrillator (SICD)
recent c-diff
Hospital course by problem and A/P:
Patient is a 59y F with PMH significant for ASCVD, DM-II and ESRD on HD who presents to ED from local [place] for evaluation of generalized weakness.
# Sepsis
- unknown source
Febrile episode overnight 10/27
-Possible pneumonia
� With persistent leukocytosis and clear evidence of consolidation versus mass on CT, will switch ceftriaxone to Zosyn
�Monitor leukocytosis
�Will need close imaging outpatient after antibiotic course
#Rapid Response 10/28
#Syncopal Episode
#Second Degree Block
#Pauses
-Noted 12-second pause
-ECHO�EF 25 to 30%, stage III diastolic dysfunction
-Cards consulted
-Cont on Tele
� Will most likely need pacemaker, anticipate Sunday after abx course completed
� Resume beta-guillermina as needed for cardiomyopathy
#Troponin Elevation
-most likely non ischemic myocardial injury 2/2 to CKD alogn with pause
-Cards consulted
# ASCVD (CAD, PAD)
Complicated by CHF - Unknown Type
Continue current CV med regimen including DAPT, statin, etc.
Follow I/Os, daily weights, etc.
Not on diuretic regimen
manage volume on HD.
Obtain records from [facility] for review.
# Dry Gangrene R 2nd Toe
Patient has tentative plans for eventual amputation.
No evidence of surrounding erythema, active infection, etc.
Wound care ordered
# ESRD on HD
R IJ catheter in place. Has been on HD x 3 months per patient.
# Benign Hypertension
Continue current med regimen (presently only on non-HD days).
Adjust dosing / timing as needed for adequate control.
# DM-II
Stable. Continue basal : bolus insulin regimen - increased.
Follow glucose and cover with SSI as needed.
#Recent CDiff Colitis - no diarrhea currently
No current diarrhea. Completing tapering course of oral vancomycin.
Was on BID dosing per taper - increased back to QID for now for prophylaxis while on new abx.
Monitor for any recurrent diarrhea.
Continue contact precautions for now.
# Anemia of CKD
Continue current iron supplementation.
No evidence of active bleeding.
Follow for changes in H&H.
DVT Prophylaxis: Continue Subcut Heparin
Code Status: Full
Total time spent on today's encounter was 51 minutes which included time spent in counseling the patient/family regarding diagnosis and treatment plan as listed above, goals of care, and symptom management. Case was discussed with nursing staff,
specialists, and care coordinators/case management. All labs and imaging personally reviewed by me. Remainder the time spent in detailed review of previous records, lab data, imaging, and other medical provider documentation.
Anticipated Discharge: > 48 hours
Subjective/Interval History
-
Date of Service: October 30, 2024
brief pause with n/v today
Objective Data
-
Labs:
Laboratory Results
10/30/24
06:43
WBC 15.3 H
Hgb 7.6 L
Hct 24.6 L
Plt Count 365
Sodium 135
Potassium 3.6
Chloride 98
Carbon Dioxide 26
BUN 15
Creatinine 2.8 H
Glucose 138 H
Calcium 8.8
Total Bilirubin 0.5
AST 15
ALT 12
Alkaline Phosphatase 88
Vital Signs:
Vital Signs
Temp Pulse Resp BP Pulse Ox
98.6 F 83 18 133/61 99
10/30/24 07:30 10/30/24 07:30 10/30/24 07:30 10/30/24 07:30 10/30/24 07:30
I&O
10/29/24 10/30/24 10/31/24
06:59 06:59 06:59
Intake Total 720 / 720 1320 / 1320
Balance 720 / 720 1320 / 1320
Review of Systems
-
History Source: Patient
All other systems: Not reviewed unless documented
Physical Exam
-
General: Well Developed, Well Nourished, No Apparent Distress, Comfortable and Conversant
HEENT: Normocephalic, Atraumatic and Moist Mucous Membranes
Respiratory: Clear to Auscultation
Cardiac: Regular Rhythm and S1/S2
GI: Soft, Nontender and Nondistended
Musculoskeletal: No Clubbing, No Cyanosis and No Edema
Skin: Warm and Dry
Neuro: Awake, Alert and Oriented
Psych: Calm
Data Reviewed
-
Diagnostic Radiology: Report Reviewed by me
CT Scan: Report Reviewed by me
Labs: Labs Reviewed by me
--- NOTE | 2024-10-30 14:12 | W.PN.CARDCBS ---
Today's Communication / Plan
-
Patient with recurrent 6-second pause during PT. She did have evidence of previous second-degree AV block.
Reviewed with the EP and given access concerns patient may be a candidate for Micra leadless permanent pacemaker. She has subcu ICD which could not provide pacing support.
Plan is tentative for Sunday, November 03 for placement pending further treatment of her pneumonia.
Continue volume control with hemodialysis for end-stage renal disease.
Continue medical therapy for non-MA troponin
Recent cardiac catheterization May 2024 continue medical therapy for CAD.
Continue dual antiplatelet therapy Imdur and statin.
Consider transfusion for significant anemia as acute on chronic anemia could be exacerbating demand ischemia.
Discussed with nursing and primary service.
Impression / Plan
-
PCP: Simon Cota
Counselor Aid: Dr. Adi Alas
Bundles Hanger: Dr. Peoples
Impression:
Presents 10/24/2024 with generalized weakness
Recent admission to [facility] for C diff early 10/2024
Sepsis / PNA / UTI
Syncope with rapid response 10/28/2024
Sinus pause 11 seconds on tele 10/28/24 and 6 sec Oct 30
Sacral wound infection
Gangrenous right second toe
Coronary artery disease
CABG x 4 (patent KIMBROUGH to LAD & SVG to RCA) SVG to OM & SVG to RAMUS unknown date
LAD ALICE at touchdown of KIMBROUGH 2018, ALICE to SVG-RCA, occluded SVG to Ramus by cath 2018
Circumflex stent December 2022
h/o [employer]-eluting stents to proximal circumflex with severe in-stent restenosis on cath 05/25/2024
Ischemic cardiomyopathy, EF 30%
s/p [employer] SubQ ICD (MRI conditional) 09/17/2024
Recurrent syncope
PVD with toe gangrene
History of pleural effusions requiring thoracentesis
Diabetes
Hypertension
Hyperlipidemia
Neuropathy
Chronic hyponatremia
Chronic anemia, has required transfusions
ESRD-HD
COPD
Former smoker
Echo 10/01/2018: EF 45%, hypokinesis of inferolateral and inferoseptal smith. Moderate LVH. Mild MR
Echo 05/10/2024: EF 30%. Moderate global LV hypokinesis. Stage III diastolic dysfunction, restrictive filling, mildly dilated left atrium.. Moderate MR. Mild TR. PAP 38 mmHg.
Echo 10/28/2024: EF 25 to 30%, stage III diastolic dysfunction, global hypokinesis with possible septal dyskinesis, moderate MR
Cardiac catheterization 05/22/2024 ([facility]): LM: Patent. LAD: Proximal occlusion with KIMBROUGH to LAD. Circumflex: Proximal stent with severe in-stent restenosis, distal to stented segment 95% eccentric stenosis. RCA MONUMENT CARVER. SVG to OM occluded. SVG to
RCA patent. KIMBROUGH to LAD patent with minimal disease distal to touchdown. 'Conclusion patent KIMBROUGH to LAD, SVG to RCA. Severe in-stent restenosis of proximal left circumflex stent with severe disease distal to the stented segment. There is already
2 layers of stents in this area and we were unable to cross with wire. Recommend continued medical management'
RA 7 mmHg; RV 56/3 mmHg; PA 58/23 with a mean of 36 mmHg; PCW 20 mmHg; LV 154/4, MAP 91mmhg cardiac output 4.09 l/min, cardiac index 2.12 L/min/m2
Plan:
-Patient came to [facility] from [place] with an episode of syncope and within 24 hours of admission had a witnessed 11-second pause and had an episode of unresponsiveness associated with that pause. Cardiology was consulted.
Patient with recurrent 6-second pause during PT. She did have evidence of previous second-degree AV block.
Reviewed with the EP and given access concerns patient may be a candidate for Micra leadless permanent pacemaker. She has subcu ICD which could not provide pacing support.
Plan is tentative for Sunday, November 03 for placement pending further treatment of her pneumonia.
Continue volume control with hemodialysis for end-stage renal disease.
Continue medical therapy for non-MA troponin
Recent cardiac catheterization May 2024 continue medical therapy for CAD.
Continue dual antiplatelet therapy Imdur and statin.
Consider transfusion for significant anemia as acute on chronic anemia could be exacerbating demand ischemia.
Discussed with nursing and primary service.
Additional hx: Patient with sepsis on admission and is receiving Zosyn and vancomycin. Patient also recently had C. difficile colitis treated at [facility] and reports diarrhea is improved.
-Echo from 10/28/2024 was reviewed by me on 10/29/2024 and as summarized above. EF is 25 to 30% which is similar to echo she had at [facility] on 05/10/2024 when EF was 30%. This is presumably an ischemic CM.
-Patient with history of CABG and PCI, last cardiac cath was 05/25/2024. Patient remains on aspirin and Plavix.
-On telemetry review patient also had 7 beats NSVT on 10/28/2024, this appeared to be asymptomatic. Patient with known ICM and has subcutaneous ICD in place. Coreg was held for possible contribution to sinus pause, but we will resume following
Micra placement.
-Patient is not chronically on PETER/ARB/ARNI/aldosterone antagonist due to ESRD on HD.
-Troponin was 0.034 on admission and peaked at 0.855. No complaints of chest pain. EF and global hypokinesis similar by echo. Will manage as nonischemic myocardial injury troponin elevation in the setting of anemia, syncope and sinus pause.
-Patient has known MV CAD with 2 of 4 bypass grafts occluded on most recent cath in 05/2024. She has multiple layers of circumflex stents and wire was unable to be passed on prior catheterization in May 2024 at [facility]. Continuing aggressive medical
therapy for her CAD
-Continue Plavix, isosorbide, aspirin and statin.
-LDL 21 and outpatient doses of atorvastatin 40 mg daily plus Zetia 10 mg daily have been continued
HPI 10/28/2024:
Patient is a 59-year-old female with extensive past medical history including complicated cardiac history multiple coronary interventions including CABG x 4 with known occlusion of SVG to OM and SVG to ramus, stenting of LAD at touchdown of KIMBROUGH and
ALICE to SVG of RCA as well as circumflex stenting, ischemic cardiomyopathy, heart failure with reduced ejection fraction, PVD, end-stage renal disease on hemodialysis, hypertension, hyperlipidemia, diabetes, PVD, chronic anemia requiring transfusions
and COPD. She has had multiple hospitalizations at [facility] over the last several months. Due to recurrent syncope and ischemic cardiomyopathy she underwent placement of subcutaneous ICD 09/17/2024 rather than transvascular ICD
given end-stage renal disease on hemodialysis and presence of PVD. She was readmitted late September 2024 with altered mental status and leukocytosis and was found to have C. difficile infection. Now presents to [facility] with generalized weakness and
fatigue. Patient found to have sepsis possibly from UTI or pneumonia. Ongoing IV antibiotics. Around noon on 10/28/2024 patient was being placed in bed after sitting in chair. Staff started to raise HOB when she complained of feeling nauseous then
proceeded to have a syncopal event and was unresponsive. Telemetry showed an 11-second pause. Rapid response was called. Patient regained consciousness fairly quickly and had spontaneous return of sinus rhythm.
Patient reports she had 1 syncopal episode in September with dialysis but does not have longstanding history of syncope. Family (son and ) at bedside who helps to provide and assist with history
Progress Note - Counselor Aid
Subjective
Date of Service: October 30, 2024
Pt seen and examined. 6 sec pause with near syncope today. No chest pain or shortness of breath.
Objective
Labs:
10/30/24 06:43
10/30/24 06:43
Labs
Hgb 7.6 g/dL (12.0-16.0) L 10/30/24 06:43
Hct 24.6 % (37.0-47.0) L 10/30/24 06:43
Plt Count 365 10^3/uL (130-400) 10/30/24 06:43
Sodium 135 mmol/L (135-145) 10/30/24 06:43
Potassium 3.6 mmol/L (3.5-5.1) 10/30/24 06:43
BUN 15 mg/dl (7-17) 10/30/24 06:43
Creatinine 2.8 mg/dL (0.6-1.0) H 10/30/24 06:43
Glucose 138 mg/dl (70-99) H 10/30/24 06:43
Troponins
10/28/24 10/28/24 10/28/24
12:34 14:15 20:18
Troponin I 0.840 H* 0.855 H* 0.726 H*
10/29/24 10/29/24
02:11 08:28
Troponin I 0.627 H* 0.576 H*
Vital Signs and I&O:
Vital Signs
Temp Pulse Resp BP Pulse Ox
98.6 F 83 18 133/61 99
10/30/24 07:30 10/30/24 07:30 10/30/24 07:30 10/30/24 07:30 10/30/24 07:30
Vital Signs
Temp Pulse Resp BP Pulse Ox
98.6 F 83 18 133/61 99
10/30/24 07:30 10/30/24 07:30 10/30/24 07:30 10/30/24 07:30 10/30/24 07:30
Intake & Output
10/28/24 10/29/24 10/30/24 10/31/24
06:59 06:59 06:59 06:59
Intake Total 480 / 480 720 / 720 1320 / 1320
Balance 480 / 480 720 / 720 1320 / 1320
Physical Exam
Physical Exam
General: No acute distress, AAOX3
Neck: Negative JVD
Heart: Regular, Negative S3 positive S1/S2, Negative S4, No murmur
Lungs: CTA b/l, negative wheezes/rales/rhonchi
Abd: Positive BS, NT/ND, neg rebound/rigidity/guarding
Ext: Negative cyanosis/clubbing/edema
Neuro: nonfocal
[2024-10-30 17:03] LABS: Glucose - Point of Care 249 mg/dl (70-99)
[2024-10-30] MEDS: FERROUS SULFATE ORAL LIQUID 162.5 MG PO (18:00)
[2024-10-30 21:48] LABS: Glucose - Point of Care 320 mg/dl (70-99)
[2024-10-30] MEDS: ZETIA 10 MG PO (22:09)
[2024-10-30] MEDS: LIPITOR 40 MG PO (22:09)
[2024-10-30] MEDS: TYLENOL 650 MG PO (23:12)
[2024-10-30] MEDS: MELATONIN 3 MG PO (23:13)
[2024-10-31 03:00] VITALS: BP 114/56
[2024-10-31 03:12] VITALS: BMI 23.6
[2024-10-31 07:00] VITALS: BP 133/69
[2024-10-31 07:19] LABS: Glucose - Point of Care 181 mg/dl (70-99)
--- NOTE | 2024-10-31 08:34 | W.PN.CARDCBS ---
Addendum entered and electronically signed by Moreno Boston MD 10/31/24 13:06:
I saw and examined the patient.
The Parking Inspector's note was reviewed and I agree with the note.
Comment:
GEN: No distress, awake, Ox3
HEENT: supple, anicteric, mmm
LUNGS: CTA, no wheezes/rales
CV: Reg, S1/S2, 1/6 syst LSB, no murmur
ABD: soft, BS+, NT/ND
EXT: No edema
NEURO: Gross non-focal
SKIN: No rash
PLan:
No further pauses. Continue to follow on telemetry and avoid all AV jimbo blockers. Tentative plan will be for Micra pacemaker on Sunday/Sunday.
Would need to be in the late morning/early afternoon Sunday because of dialysis in AM.
Continue antibiotics for pneumonia.
Continue vancomycin for C. difficile.
Continue medical therapy for coronary artery disease. Continue aspirin, Plavix, Zetia, Imdur, and atorvastatin
Original Note:
Today's Communication / Plan
-
Continue treatment for pneumonia
Wean oxygen as able
Coreg remains on hold
Tentative Micra pacemaker for 11/03/24
Impression / Plan
-
PCP: Simon Cota
Leave Coordinator: Dr. Adi Alas
Gum Cook: Dr. Peoples
Impression:
Presents 10/24/2024 with generalized weakness
Recent admission to [facility] for C diff early 10/2024
Sepsis / PNA / UTI
Syncope with rapid response 10/28/2024
Sinus pause 11 seconds on tele 10/28/24 and 6 sec Oct 30
Sacral wound infection
Gangrenous right second toe
Coronary artery disease
CABG x 4 (patent KIMBROUGH to LAD & SVG to RCA) SVG to OM & SVG to RAMUS unknown date
LAD ALICE at touchdown of KIMBROUGH 2018, ALICE to SVG-RCA, occluded SVG to Ramus by cath 2018
Circumflex stent December 2022
h/o [employer]-eluting stents to proximal circumflex with severe in-stent restenosis on cath 05/25/2024
Ischemic cardiomyopathy, EF 30%
s/p [employer] SubQ ICD (MRI conditional) 09/17/2024
Recurrent syncope
PVD with toe gangrene
History of pleural effusions requiring thoracentesis
Diabetes
Hypertension
Hyperlipidemia
Neuropathy
Chronic hyponatremia
Chronic anemia, has required transfusions
ESRD-HD
COPD
Former smoker
Echo 10/01/2018: EF 45%, hypokinesis of inferolateral and inferoseptal smith. Moderate LVH. Mild MR
Echo 05/10/2024: EF 30%. Moderate global LV hypokinesis. Stage III diastolic dysfunction, restrictive filling, mildly dilated left atrium.. Moderate MR. Mild TR. PAP 38 mmHg.
Echo 10/28/2024: EF 25 to 30%, stage III diastolic dysfunction, global hypokinesis with possible septal dyskinesis, moderate MR
Cardiac catheterization 05/22/2024 ([facility]): LM: Patent. LAD: Proximal occlusion with KIMBROUGH to LAD. Circumflex: Proximal stent with severe in-stent restenosis, distal to stented segment 95% eccentric stenosis. RCA [employer]. SVG to OM occluded. SVG to
RCA patent. KIMBROUGH to LAD patent with minimal disease distal to touchdown. 'Conclusion patent KIMBROUGH to LAD, SVG to RCA. Severe in-stent restenosis of proximal left circumflex stent with severe disease distal to the stented segment. There is already
2 layers of stents in this area and we were unable to cross with wire. Recommend continued medical management'
RA 7 mmHg; RV 56/3 mmHg; PA 58/23 with a mean of 36 mmHg; PCW 20 mmHg; LV 154/4, MAP 91mmhg cardiac output 4.09 l/min, cardiac index 2.12 L/min/m2
Plan:
-Patient came to [facility] 10/24/2024 from [place] with an episode of syncope and within 24 hours of admission had a witnessed 11-second pause and had an episode of unresponsiveness associated with that pause. Cardiology was consulted.
Sinus node dysfunction with 11 second pause 10/28/2024 associated with syncope/unresponsiveness and 6 second pause 10/30/2024 during PT. Also found known to have she did second-degree AV block.
Coreg placed on hold as of 10/28/2024
Per review of telemetry patient continues to have frequent PVCs, bigeminal patter, 7-8 beats of VT 10/28.
Reviewed with the EP and given access concerns patient may be a candidate for Micra leadless permanent pacemaker. She has subcu ICD which could not provide pacing support.
Plan is tentative for Sunday, November 03 for placement pending further treatment of her pneumonia.
Continue volume control with hemodialysis for end-stage renal disease.
Abnormal troponin, peaked at 0.855. Denies chest pain. Will manage as nonischemic myocardial injury secondary to pneumonia/UTI, anemia, end-stage renal disease, syncope and sinus pauses
Patient has known MV CAD with 2 of 4 bypass grafts occluded on most recent cath in 05/2024. She has multiple layers of circumflex stents and wire was unable to be passed on prior catheterization in May 2024 at [facility]. Continuing aggressive medical
therapy for her CAD
LDL 21 and outpatient doses of atorvastatin 40 mg daily plus Zetia 10 mg daily have been continued
Continue dual antiplatelet therapy Imdur and statin.
Heart failure with reduced ejection fraction
Echo from 10/28/2024, EF is 25 to 30% which is similar to echo she had at [facility] on 05/10/2024 when EF was 30%. This is presumably an ischemic CM.
Patient is not chronically on PETER/ARB/ARNI/aldosterone antagonist due to ESRD on HD.
Coreg currently on hold secondary to prolonged pauses/syncope. Will need to be resumed once pacemaker placed
Volume status being managed by hemodialysis
Consider transfusion for significant anemia as acute on chronic anemia could be exacerbating demand ischemia.
Concern for sepsis with unknown source, possible pneumonia with persistent leukocytosis. Primary service managing antibiotics. Previously on ceftriaxone now on Zosyn.
Additional hx: Patient with sepsis on admission and is receiving Zosyn and vancomycin. Patient also recently had C. difficile colitis treated at [facility] and reports diarrhea is improved.
HPI 10/28/2024:
Patient is a 59-year-old female with extensive past medical history including complicated cardiac history multiple coronary interventions including CABG x 4 with known occlusion of SVG to OM and SVG to ramus, stenting of LAD at touchdown of KIMBROUGH and
ALICE to SVG of RCA as well as circumflex stenting, ischemic cardiomyopathy, heart failure with reduced ejection fraction, PVD, end-stage renal disease on hemodialysis, hypertension, hyperlipidemia, diabetes, PVD, chronic anemia requiring transfusions
and COPD. She has had multiple hospitalizations at [facility] over the last several months. Due to recurrent syncope and ischemic cardiomyopathy she underwent placement of subcutaneous ICD 09/17/2024 rather than transvascular ICD
given end-stage renal disease on hemodialysis and presence of PVD. She was readmitted late September 2024 with altered mental status and leukocytosis and was found to have C. difficile infection. Now presents to [facility] with generalized weakness and
fatigue. Patient found to have sepsis possibly from UTI or pneumonia. Ongoing IV antibiotics. Around noon on 10/28/2024 patient was being placed in bed after sitting in chair. Staff started to raise HOB when she complained of feeling nauseous then
proceeded to have a syncopal event and was unresponsive. Telemetry showed an 11-second pause. Rapid response was called. Patient regained consciousness fairly quickly and had spontaneous return of sinus rhythm.
Patient reports she had 1 syncopal episode in September with dialysis but does not have longstanding history of syncope. Family (son and ) at bedside who helps to provide and assist with history
Progress Note - Leave Coordinator
Subjective
Date of Service: October 31, 2024
Patient seen and examined. Patient resting comfortably in bed. Denies chest pain or shortness of breath, still on oxygen via nasal cannula
Objective
Labs:
Labs
Hgb 7.6 g/dL (12.0-16.0) L 09/25/25 06:43
Hct 24.6 % (37.0-47.0) L 10/30/24 06:43
Plt Count 365 10^3/uL (130-400) 10/30/24 06:43
Sodium 135 mmol/L (135-145) 10/30/24 06:43
Potassium 3.6 mmol/L (3.5-5.1) 10/30/24 06:43
BUN 15 mg/dl (7-17) 10/30/24 06:43
Creatinine 2.8 mg/dL (0.6-1.0) H 10/30/24 06:43
Glucose 138 mg/dl (70-99) H 10/30/24 06:43
Troponins
10/28/24 10/28/24 10/28/24
12:34 14:15 20:18
Troponin I 0.840 H* 0.855 H* 0.726 H*
10/29/24 10/29/24
02:11 08:28
Troponin I 0.627 H* 0.576 H*
Vital Signs and I&O:
Vital Signs
Temp Pulse Resp BP Pulse Ox
98.2 F 77 20 133/69 100
10/31/24 07:00 10/31/24 07:00 10/31/24 07:00 10/31/24 07:00 10/31/24 07:00
Vital Signs
Temp Pulse Resp BP Pulse Ox
98.2 F 77 20 133/69 100
10/31/24 07:00 10/31/24 07:00 10/31/24 07:00 10/31/24 07:00 10/31/24 07:00
Intake & Output
10/29/24 10/30/24 10/31/24 11/01/24
06:59 06:59 06:59 06:59
Intake Total 720 / 720 1320 / 1320 600 / 600
Balance 720 / 720 1320 / 1320 600 / 600
Physical Exam
Physical Exam
GEN: Chronically ill looking female older than stated age lying in bed in no acute distress
HEENT: supple, anicteric, mmm
LUNGS: Decreased breath sounds at left base otherwise CTA, no wheezes/rales, on 2 L oxygen via nasal cannula
CV: Reg, S1/S2, 1/6 sys murmur
ABD: soft, BS+, NT/ND
EXT: No edema, clubbing or cyanosis
NEURO: Gross non-focal
SKIN: No rash, warm, dry, pink
[2024-10-31] MEDS: LANTUS 0.12 UNITS SC ×2 (08:55→21:18)
[2024-10-31] MEDS: ASPIR LOW (ENTERIC COATED) 81 MG PO (08:56)
[2024-10-31] MEDS: FLORASTOR 250 MG PO ×2 (08:56→20:51)
[2024-10-31] MEDS: PLAVIX 75 MG PO (08:56)
[2024-10-31] MEDS: HEPARIN 5000 UNITS SC ×3 (08:56→21:17)
[2024-10-31] MEDS: FIRVANQ 250 MG PO ×4 (09:06→21:17)
[2024-10-31] MEDS: NOVOLOG FLEXPEN-LOW RESISTANCE 1 UNITS SC (09:08)
[2024-10-31] MEDS: ZOSYN 50 IV ×2 (10:56→21:19)
[2024-10-31 11:00] VITALS: BP 133/87
[2024-10-31 11:38] LABS: Glucose - Point of Care 182 mg/dl (70-99)
[2024-10-31] MEDS: PERCOCET 5/325 1 TABLET PO ×2 (12:42→18:42)
[2024-10-31 13:14] LABS: Hematocrit 23.0 % (37.0-47.0); Hemoglobin 7.1 g/dL (12.0-16.0); Mean Corp Hgb Conc. 30.9 g/dL (33.0-37.0); Mean Corpuscular Volume 90.9 fL (81.0-99.0); Platelet Count 397 10^3/uL (130-400); Red Cell Dist. Width 17.2 % (11.5-14.5)
--- NOTE | 2024-10-31 13:18 | W.PN.NEPH.HD ---
Assessment
-
Patient seen on dialysis
Systolic blood pressure stable at current U/F
Progress Note - Hemodialysis
-
Date of Service: October 31, 2024
Duration: 30 minutes and 3 hours
Potassium Bath: 3
Calcium Bath: 2.5
Opti-Dialyzer: 160
Ultrafiltration: Other (2kg as tolerated)
Blood Flow: 400
Dialysate Flow: 600
Heparin: none
EPO: 10K
[2024-10-31 13:31] LABS: ALT (SGPT) 11 U/L (0-35); AST (SGOT) 13 U/L (14-36); Albumin 3.0 g/dl (3.5-5.0); Alkaline Phosphatase 78 U/L (38-126); Blood Urea Nitrogen 26 mg/dl (7-17); Calcium 8.8 mg/dl (8.4-10.2); Carbon Dioxide 25 mmol/L (22-30); Chloride 94 mmol/L (98-107); Estimated Creatinine Clearance 14 ml/min; Glucose 145 mg/dl (70-99); Potassium 3.9 mmol/L (3.5-5.1); Sodium 130 mmol/L (135-145); Total Protein 6.4 g/dl (6.3-8.2); eGFR 11.45
[2024-10-31] MEDS: RETACRIT 10000 UNITS IV (13:31)
--- NOTE | 2024-10-31 14:09 | CM ---
PT OT indicates rehab when dc at [facility].
MAX assist of 2 . Will need ambulance .
Continues with HD 3 x weekly.HD today.
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
[facility]
Report [phone]

PLAN Return to [facility] when medically ready
[2024-10-31] MEDS: NOVOLOG FLEXPEN-LOW RESISTANCE SC ×2 (14:17→15:55)
--- NOTE | 2024-10-31 14:18 | PTCARENOTE ---
Lab informed this RN of critical creat, result=4.2. made aware.
--- NOTE | 2024-10-31 14:30 | W.PN.HOSP.TC ---
Addendum entered and electronically signed by Ash Lindsey MD 10/31/24 15:37:
R upper inner buttocks purple discolored ulcer suspect - stage 2
Hyponatremia
Chronic combined CHF
Original Note:
Today's Communication/Plan
-
abx
PPM anticipated Sunday
Assessment / Plan
Assessment / Plan
Initial presentation:
Patient is a 59y F with PMH significant for ASCVD, ESRD on HD and recent CDiff infection who presents to ED complaining of generalized weakness and fatigue. Patient denies any other specific or focal complaints. She reports multiple prior
hospitalizations - most recently at [facility] about 2 weeks ago where she was diagnosed with CDiff colitis. She has been on tapering doses of oral vancomycin since that time with improvement in stool consistency. Prior to that, patient was hospitalized
for urinary tract infection.
Patient reports several days of weakness and fatigue. She denies sore throat, fevers / chills, cough / dyspnea, abdominal pain, N/V/D. She states that her urine has been dark appearing. No dysuria or flank pain.
Diagnosis prior to admit
ASCVD (CAD, PAD)
CHF - Unknown Type
Hypertension
DM-II
ESRD on HD
Anemia of CKD
x 3
PTCA with Stent (x 3)
CABG x 4
L 5th Toe Amputation
R IJ HD Catheter
Defibrillator (SICD)
recent c-diff
Hospital course by problem and A/P:
Patient is a 59y F with PMH significant for ASCVD, DM-II and ESRD on HD who presents to ED from local [place] for evaluation of generalized weakness.
# Sepsis
- unknown source
Febrile episode overnight 10/27, resolved
-Possible pneumonia
� With persistent leukocytosis and clear evidence of consolidation versus mass on CT, will switch ceftriaxone to Zosyn
�Monitor leukocytosis
�Will need close imaging outpatient after antibiotic course
#Rapid Response 10/28
#Syncopal Episode
#Second Degree Block
#Pauses
-Noted 12-second pause
-ECHO�EF 25 to 30%, stage III diastolic dysfunction
-Cards consulted
-Cont on Tele
� Will most likely need pacemaker, anticipate Sunday after abx course completed
� Resume beta-guillerimna as needed for cardiomyopathy
#Troponin Elevation
-most likely non ischemic myocardial injury 2/2 to CKD alogn with pause
-Cards consulted
# ASCVD (CAD, PAD)
Complicated by CHF - Unknown Type
Continue current CV med regimen including DAPT, statin, etc.
Follow I/Os, daily weights, etc.
Not on diuretic regimen
manage volume on HD.
Obtain records from [facility] for review.
# Dry Gangrene R 2nd Toe
Patient has tentative plans for eventual amputation.
No evidence of surrounding erythema, active infection, etc.
Wound care ordered
# ESRD on HD
R IJ catheter in place. Has been on HD x 3 months per patient.
# Benign Hypertension
Continue current med regimen (presently only on non-HD days).
Adjust dosing / timing as needed for adequate control.
# DM-II
Stable. Continue basal : bolus insulin regimen - increased.
Follow glucose and cover with SSI as needed.
#Recent CDiff Colitis - no diarrhea currently
No current diarrhea. Completing tapering course of oral vancomycin.
Was on BID dosing per taper - increased back to QID for now for prophylaxis while on new abx.
Monitor for any recurrent diarrhea.
Continue contact precautions for now.
# Anemia of CKD
Continue current iron supplementation.
No evidence of active bleeding.
Follow for changes in H&H.
DVT Prophylaxis: Continue Subcut Heparin
Code Status: Full
Anticipated Discharge: > 48 hours
Subjective/Interval History
-
Date of Service: October 31, 2024
no acute events, afebrile
Objective Data
-
Labs:
Laboratory Results
10/31/24
12:38
WBC 16.5 H
Hgb 7.1 L
Hct 23.0 L
Plt Count 397
Sodium 130 L
Potassium 3.9
Chloride 94 L
Carbon Dioxide 25
BUN 26 H
Creatinine 4.2 H*
Glucose 145 H
Calcium 8.8
Total Bilirubin 0.7
AST 13 L
ALT 11
Alkaline Phosphatase 78
Vital Signs:
Vital Signs
Temp Pulse Resp BP Pulse Ox
98.4 F 76 18 133/87 100
10/31/24 11:00 10/31/24 11:00 10/31/24 11:00 10/31/24 11:00 10/31/24 11:00
I&O
10/30/24 10/31/24 11/01/24
06:59 06:59 06:59
Intake Total 1320 / 1320 600 / 600
Balance 1320 / 1320 600 / 600
Review of Systems
-
History Source: Patient
All other systems: Not reviewed unless documented
Data Reviewed
-
Diagnostic Radiology: Report Reviewed by me
CT Scan: Report Reviewed by me
Labs: Labs Reviewed by me
[2024-10-31 15:00] VITALS: BP 121/57
[2024-10-31 15:47] LABS: Glucose - Point of Care 102 mg/dl (70-99)
[2024-10-31] MEDS: TYLENOL 650 MG PO (16:27)
[2024-10-31] MEDS: FERROUS SULFATE ORAL LIQUID 162.5 MG PO (17:47)
[2024-10-31] MEDS: NOVOLOG FLEXPEN-LOW RESISTANCE 2 UNITS SC (18:42)
[2024-10-31 18:43] LABS: Glucose - Point of Care 210 mg/dl (70-99)
[2024-10-31 19:38] VITALS: BP 110/43
[2024-10-31 20:44] LABS: Glucose - Point of Care 231 mg/dl (70-99)
[2024-10-31] MEDS: ZETIA 10 MG PO (21:18)
[2024-10-31] MEDS: LIPITOR 40 MG PO (21:18)
[2024-10-31 23:40] VITALS: BP 127/55
[2024-11-01] VITALS (7 sets, daily range): BP systolic 110–137; BP diastolic 48–61; BMI 23.4
[2024-11-01] MEDS: PERCOCET 5/325 1 TABLET PO ×3 (03:32→22:16)
--- NOTE | 2024-11-01 08:29 | W.PN.NEPH.PH ---
Today's Communication / Plan
-
Next dialysis will be Sunday
Assessment/Plan
-
59y F with PMH significant for ASCVD, ESRD on HD and recent CDiff infection who presents to ED complaining of generalized weakness and fatigue. Patient denies any other specific or focal complaints. She reports multiple prior hospitalizations -
most recently at [facility] about 2 weeks ago where she was diagnosed with CDiff colitis.
She has been on dialysis for about 3 months via permacath
She follows with Dr. Goodwin at [facility] yet to start there. has been at [facility] and [facility]
Renal consult for dialysis management
Impression
ESRD TTS [facility]
Pneumonia
C. difficile
Anemia of chronic disease
CHF ejection fraction 25%
Plan
Dialysis Sunday
will be doing MWF at [facility]
Ultrafiltration as blood pressure will tolerate as patient still has persistent hyponatremia consistent with volume overload
EPO for anemia
For PPM on Sunday we will perform dialysis Sunday morning
-
-
Date of Service: November 01, 2024
CC / HPI / ROS
-
Chief Complaint:
Pneumonia sepsis
History of Present Illness:
ESRD now transition to Sunday
Remains on doxycycline for pneumonia
Remains on oral vancomycin for C. difficile
Hemodynamically stable on antihypertensives and dry weight
Review of Systems:
No chest pain or shortness of breath
Labs
-
Labs:
eGFR 11.45 10/31/24 12:38
Phosphorus 4.1 mg/dl (2.5-4.5) 10/28/24 12:34
Physical Exam
-
Vital Signs:
Vital Signs
Temp Pulse Resp BP Pulse Ox
98.7 F 92 17 137/61 98
11/01/24 03:14 11/01/24 03:14 11/01/24 03:14 11/01/24 03:14 11/01/24 03:14
Respiratory:: Bilateral: CTA
Lung Excursion:: Normal
Abdomen:: Soft
Bowel Sounds:: None
Extremity Edema:: +1: Bilateral:
[2024-11-01 08:43] LABS: Glucose - Point of Care 283 mg/dl (70-99)
[2024-11-01] MEDS: LANTUS 0.12 UNITS SC (08:56)
[2024-11-01] MEDS: PLAVIX 75 MG PO (08:57)
[2024-11-01] MEDS: HEPARIN 5000 UNITS SC ×3 (08:57→22:15)
[2024-11-01] MEDS: FLORASTOR 250 MG PO ×2 (08:57→20:15)
[2024-11-01] MEDS: IMDUR (EXTENDED RELEASE) 30 MG PO (08:57)
[2024-11-01] MEDS: NOVOLOG FLEXPEN-LOW RESISTANCE 3 UNITS SC (08:57)
[2024-11-01] MEDS: ASPIR LOW (ENTERIC COATED) 81 MG PO (08:57)
[2024-11-01] MEDS: FIRVANQ 250 MG PO ×4 (08:59→22:14)
[2024-11-01] MEDS: ZOSYN 50 IV ×2 (10:50→22:19)
[2024-11-01 11:52] LABS: Glucose - Point of Care 310 mg/dl (70-99)
--- NOTE | 2024-11-01 12:51 | W.PN.HOSP.TC ---
Today's Communication/Plan
-
Abx
Adjust Insulin dosing
PPM sun/sunday
Assessment / Plan
Assessment / Plan
Initial presentation:
Patient is a 59y F with PMH significant for ASCVD, ESRD on HD and recent CDiff infection who presents to ED complaining of generalized weakness and fatigue. Patient denies any other specific or focal complaints. She reports multiple prior
hospitalizations - most recently at [facility] about 2 weeks ago where she was diagnosed with CDiff colitis. She has been on tapering doses of oral vancomycin since that time with improvement in stool consistency. Prior to that, patient was hospitalized
for urinary tract infection.
Patient reports several days of weakness and fatigue. She denies sore throat, fevers / chills, cough / dyspnea, abdominal pain, N/V/D. She states that her urine has been dark appearing. No dysuria or flank pain.
Diagnosis prior to admit
ASCVD (CAD, PAD)
CHF - Unknown Type
Hypertension
DM-II
ESRD on HD
Anemia of CKD
x 3
PTCA with Stent (x 3)
CABG x 4
L 5th Toe Amputation
R IJ HD Catheter
Defibrillator (SICD)
recent c-diff
Hospital course by problem and A/P:
Patient is a 59y F with PMH significant for ASCVD, DM-II and ESRD on HD who presents to ED from local [place] for evaluation of generalized weakness.
# Sepsis
# Suspected pneumonia
-Febrile episode overnight 10/27, resolved
� With persistent leukocytosis and clear evidence of consolidation versus mass on CT, will switch ceftriaxone to Zosyn
�Monitor leukocytosis
�Will need close imaging outpatient after antibiotic course
#Rapid Response 10/28
#Syncopal Episode
#Second Degree Block
#Pauses
-Noted 12-second pause
-ECHO�EF 25 to 30%, stage III diastolic dysfunction
-Cards consulted
-Cont on Tele
� Will most likely need pacemaker, anticipate Sunday/Sunday after abx course completed
� Resume beta-guillermina as needed for cardiomyopathy
#Troponin Elevation
-most likely non ischemic myocardial injury 2/2 to CKD alogn with pause
-Cards consulted
# ASCVD (CAD, PAD)
Complicated by CHF - Unknown Type
Continue current CV med regimen including DAPT, statin, etc.
Follow I/Os, daily weights, etc.
Not on diuretic regimen
manage volume on HD.
Obtain records from [facility] for review.
# Dry Gangrene R 2nd Toe
Patient has tentative plans for eventual amputation.
No evidence of surrounding erythema, active infection, etc.
Wound care ordered
# ESRD on HD
R IJ catheter in place. Has been on HD x 3 months per patient.
# Benign Hypertension
Continue current med regimen (presently only on non-HD days).
Adjust dosing / timing as needed for adequate control.
# DM-II
Stable. Resume Home dosing
Follow glucose and cover with SSI as needed.
#Recent CDiff Colitis - no diarrhea currently
No current diarrhea. Completing tapering course of oral vancomycin.
Was on BID dosing per taper - increased back to QID for now for prophylaxis while on new abx.
Monitor for any recurrent diarrhea.
Continue contact precautions for now.
# Anemia of CKD
Continue current iron supplementation.
No evidence of active bleeding.
Follow for changes in H&H.
DVT Prophylaxis: Continue Subcut Heparin
Code Status: Full
Anticipated Discharge: > 48 hours
Subjective/Interval History
-
Date of Service: November 01, 2024
No acute events, remains afebrile, feels well.
Objective Data
-
Vital Signs:
Vital Signs
Temp Pulse Resp BP Pulse Ox
97.6 F 78 16 121/51 100
11/01/24 11:00 11/01/24 11:00 11/01/24 11:00 11/01/24 11:00 11/01/24 11:00
I&O
10/31/24 11/01/24 11/02/24
06:59 06:59 06:59
Intake Total 600 / 600 770 / 770
Balance 600 / 600 770 / 770
Review of Systems
-
History Source: Patient
All other systems: Not reviewed unless documented
Physical Exam
-
General: Well Developed, Well Nourished, No Apparent Distress, Comfortable and Conversant
HEENT: Normocephalic, Atraumatic and Moist Mucous Membranes
Respiratory: Clear to Auscultation
Cardiac: Regular Rhythm and S1/S2
GI: Soft, Nontender and Nondistended
Musculoskeletal: No Clubbing, No Cyanosis and No Edema
Skin: Warm and Dry
Neuro: Awake, Alert and Oriented
Psych: Calm
Data Reviewed
-
Diagnostic Radiology: Report Reviewed by me
CT Scan: Report Reviewed by me
Labs: Labs Reviewed by me
[2024-11-01] MEDS: NOVOLOG FLEXPEN-LOW RESISTANCE 4 UNITS SC (13:03)
[2024-11-01 16:53] LABS: Glucose - Point of Care 221 mg/dl (70-99)
[2024-11-01] MEDS: TYLENOL 650 MG PO (17:05)
[2024-11-01] MEDS: FERROUS SULFATE ORAL LIQUID 162.5 MG PO (17:05)
[2024-11-01] MEDS: NOVOLOG FLEXPEN-LOW RESISTANCE 2 UNITS SC (18:18)
[2024-11-01] MEDS: NOVOLOG FLEXPEN 2 UNITS SC (18:18)
[2024-11-01] MEDS: LANTUS 0.1 UNITS SC (22:15)
[2024-11-01] MEDS: ZETIA 10 MG PO (22:16)
[2024-11-01] MEDS: LIPITOR 40 MG PO (22:16)
[2024-11-02 07:00] VITALS: BP 137/65
[2024-11-02 08:21] LABS: Glucose - Point of Care 279 mg/dl (70-99)
[2024-11-02] MEDS: NOVOLOG FLEXPEN-LOW RESISTANCE 3 UNITS SC (09:10)
[2024-11-02] MEDS: PLAVIX 75 MG PO (09:11)
[2024-11-02] MEDS: ASPIR LOW (ENTERIC COATED) 81 MG PO (09:11)
[2024-11-02] MEDS: IMDUR (EXTENDED RELEASE) 30 MG PO (09:11)
[2024-11-02] MEDS: FLORASTOR 250 MG PO ×2 (09:11→20:22)
[2024-11-02] MEDS: HEPARIN 5000 UNITS SC ×3 (09:12→22:48)
[2024-11-02] MEDS: LANTUS 0.15 UNITS SC (09:12)
[2024-11-02] MEDS: ZOSYN 50 IV ×2 (09:12→22:49)
[2024-11-02] MEDS: FIRVANQ 250 MG PO ×4 (09:12→22:47)
[2024-11-02] MEDS: NOVOLOG FLEXPEN 2 UNITS SC ×3 (09:13→17:23)
--- NOTE | 2024-11-02 10:43 | W.PN.NEPH.PH ---
Today's Communication / Plan
-
HD tomorrow in am
pace making in afternoon
Assessment/Plan
-
59y F with PMH significant for ASCVD, ESRD on HD and recent CDiff infection who presents to ED complaining of generalized weakness and fatigue. Patient denies any other specific or focal complaints. She reports multiple prior hospitalizations -
most recently at [facility] about 2 weeks ago where she was diagnosed with CDiff colitis.
She has been on dialysis for about 3 months via permacath
She follows with Dr. Goodwin at [facility] yet to start there. has been at [facility] and [facility]
Renal consult for dialysis management
Impression
ESRD TTS [facility]
Pneumonia
C. difficile
Anemia of chronic disease
CHF ejection fraction 25%
Plan
Dialysis Sunday.orders provided
will be doing MWF at [facility]
Ultrafiltration as blood pressure will tolerate as patient still has persistent hyponatremia consistent with volume overload
EPO for anemia
For PPM on Sunday afternoon we will perform dialysis Sunday morning
-
-
Date of Service: November 02, 2024
CC / HPI / ROS
-
Chief Complaint:
Pneumonia sepsis
History of Present Illness:
ESRD now transition to Sunday
Remains on doxycycline for pneumonia
Remains on oral vancomycin for C. difficile
Hemodynamically stable on antihypertensives and dry weight
Review of Systems:
No chest pain or shortness of breath
Labs
-
Labs:
eGFR Cancelled 11/01/24 23:00
Phosphorus 4.1 mg/dl (2.5-4.5) 10/28/24 12:34
Physical Exam
-
Vital Signs:
Vital Signs
Temp Pulse Resp BP Pulse Ox
98.5 F 94 19 137/65 98
11/02/24 07:00 11/02/24 07:00 11/02/24 07:00 11/02/24 07:00 11/02/24 07:00
Respiratory:: Bilateral: CTA
Lung Excursion:: Normal
Abdomen:: Soft
Bowel Sounds:: None
Extremity Edema:: +1: Bilateral:
[2024-11-02 11:00] VITALS: BP 118/57
[2024-11-02 12:26] LABS: Hematocrit 22.7 % (37.0-47.0); Hemoglobin 7.1 g/dL (12.0-16.0); Mean Corp Hgb Conc. 31.3 g/dL (33.0-37.0); Mean Corpuscular Volume 91.2 fL (81.0-99.0); Platelet Count 470 10^3/uL (130-400); Red Cell Dist. Width 16.9 % (11.5-14.5)
[2024-11-02 12:31] LABS: Glucose - Point of Care 261 mg/dl (70-99)
[2024-11-02 12:47] LABS: ALT (SGPT) 11 U/L (0-35); AST (SGOT) 12 U/L (14-36); Albumin 3.0 g/dl (3.5-5.0); Alkaline Phosphatase 74 U/L (38-126); Blood Urea Nitrogen 31 mg/dl (7-17); Calcium 8.5 mg/dl (8.4-10.2); Carbon Dioxide 22 mmol/L (22-30); Chloride 95 mmol/L (98-107); Estimated Creatinine Clearance 14 ml/min; Glucose 248 mg/dl (70-99); Potassium 3.9 mmol/L (3.5-5.1); Sodium 129 mmol/L (135-145); Total Protein 6.3 g/dl (6.3-8.2); eGFR 11.13
[2024-11-02] MEDS: PERCOCET 5/325 1 TABLET PO ×2 (13:13→20:22)
[2024-11-02] MEDS: NOVOLOG FLEXPEN-LOW RESISTANCE 2 UNITS SC (13:14)
--- NOTE | 2024-11-02 13:49 | W.PN.HOSP.TC ---
Today's Communication/Plan
-
zosyn (D4) and vanco
Anticipate PPM tomorrow after HD
Assessment / Plan
Assessment / Plan
Initial presentation:
Patient is a 59y F with PMH significant for ASCVD, ESRD on HD and recent CDiff infection who presents to ED complaining of generalized weakness and fatigue. Patient denies any other specific or focal complaints. She reports multiple prior
hospitalizations - most recently at [facility] about 2 weeks ago where she was diagnosed with CDiff colitis. She has been on tapering doses of oral vancomycin since that time with improvement in stool consistency. Prior to that, patient was hospitalized
for urinary tract infection.
Patient reports several days of weakness and fatigue. She denies sore throat, fevers / chills, cough / dyspnea, abdominal pain, N/V/D. She states that her urine has been dark appearing. No dysuria or flank pain.
Diagnosis prior to admit
ASCVD (CAD, PAD)
CHF - Unknown Type
Hypertension
DM-II
ESRD on HD
Anemia of CKD
x 3
PTCA with Stent (x 3)
CABG x 4
L 5th Toe Amputation
R IJ HD Catheter
Defibrillator (SICD)
recent c-diff
Hospital course by problem and A/P:
Patient is a 59y F with PMH significant for ASCVD, DM-II and ESRD on HD who [place] evaluation of generalized weakness.
# Sepsis
# Suspected pneumonia
-Febrile episode overnight 10/27, resolved
� With persistent leukocytosis and clear evidence of consolidation versus mass on CT, will switch ceftriaxone to Zosyn (D4)
�Monitor leukocytosis
�Will need close imaging outpatient after antibiotic course
#Rapid Response 10/28
#Syncopal Episode
#Second Degree Block
#Pauses
-Noted 12-second pause
-ECHO�EF 25 to 30%, stage III diastolic dysfunction
-Cards consulted
-Cont on Tele
� Will most likely need pacemaker, anticipate Sunday after HD
� Resume beta-guillermina as needed for cardiomyopathy
#Troponin Elevation
-most likely non ischemic myocardial injury 2/2 to CKD alogn with pause
-Cards consulted
# ASCVD (CAD, PAD)
Complicated by CHF - Unknown Type
Continue current CV med regimen including DAPT, statin, etc.
Follow I/Os, daily weights, etc.
Not on diuretic regimen
manage volume on HD.
Obtain records from [facility] for review.
# Dry Gangrene R 2nd Toe
Patient has tentative plans for eventual amputation.
No evidence of surrounding erythema, active infection, etc.
Wound care ordered
# ESRD on HD
R IJ catheter in place. Has been on HD x 3 months per patient.
# Benign Hypertension
Continue current med regimen (presently only on non-HD days).
Adjust dosing / timing as needed for adequate control.
# DM-II
Stable. Resume Home dosing
Follow glucose and cover with SSI as needed.
#Recent CDiff Colitis - no diarrhea currently
No current diarrhea. Completing tapering course of oral vancomycin.
Was on BID dosing per taper - increased back to QID for now for prophylaxis while on new abx.
Monitor for any recurrent diarrhea.
Continue contact precautions for now.
# Anemia of CKD
Continue current iron supplementation.
No evidence of active bleeding.
Follow for changes in H&H.
DVT Prophylaxis: Continue Subcut Heparin
Code Status: Full
Anticipated Discharge: 24 - 48 hours
Subjective/Interval History
-
Date of Service: November 02, 2024
no acute events
Objective Data
-
Labs:
Laboratory Results
11/02/24
12:16
WBC 16.2 H
Hgb 7.1 L
Hct 22.7 L
Plt Count 470 H
Sodium 129 L
Potassium 3.9
Chloride 95 L
Carbon Dioxide 22
BUN 31 H
Creatinine 4.3 H*
Glucose 248 H
Calcium 8.5
Total Bilirubin 0.7
AST 12 L
ALT 11
Alkaline Phosphatase 74
Vital Signs:
Vital Signs
Temp Pulse Resp BP Pulse Ox
99.0 F 80 18 118/57 99
11/02/24 11:00 11/02/24 11:00 11/02/24 11:00 11/02/24 11:00 11/02/24 11:00
I&O
11/01/24 11/02/24 11/03/24
06:59 06:59 06:59
Intake Total 770 / 770 770 / 770
Balance 770 / 770 770 / 770
Review of Systems
-
History Source: Patient
All other systems: Not reviewed unless documented
Physical Exam
-
General: Well Developed, Well Nourished, No Apparent Distress, Comfortable and Conversant
HEENT: Normocephalic, Atraumatic and Moist Mucous Membranes
Respiratory: Clear to Auscultation
Cardiac: Regular Rhythm and S1/S2
GI: Soft, Nontender and Nondistended
Musculoskeletal: No Clubbing, No Cyanosis and No Edema
Skin: Warm and Dry
Neuro: Awake, Alert and Oriented
Psych: Calm
Data Reviewed
-
CT Scan: Report Reviewed by me
Labs: Labs Reviewed by me
[2024-11-02 15:00] VITALS: BP 122/53
[2024-11-02 16:35] LABS: Glucose - Point of Care 122 mg/dl (70-99)
[2024-11-02] MEDS: NOVOLOG FLEXPEN-LOW RESISTANCE SC (17:13)
[2024-11-02] MEDS: FERROUS SULFATE ORAL LIQUID 162.5 MG PO (17:22)
[2024-11-02 19:55] VITALS: BP 124/60
[2024-11-02 22:47] LABS: Glucose - Point of Care 232 mg/dl (70-99)
[2024-11-02] MEDS: ZETIA 10 MG PO (22:48)
[2024-11-02] MEDS: LANTUS 0.1 UNITS SC (22:48)
[2024-11-02] MEDS: LIPITOR 40 MG PO (22:49)
[2024-11-02 23:10] VITALS: BP 128/57
[2024-11-03] VITALS (19 sets, daily range): BP systolic 86–136; BP diastolic 46–63; BMI 24.1
[2024-11-03 06:07] LABS: Glucose - Point of Care 255 mg/dl (70-99)
[2024-11-03] MEDS: NOVOLOG FLEXPEN-LOW RESISTANCE 3 UNITS SC (06:12)
[2024-11-03] MEDS: NOVOLOG FLEXPEN SC ×3 (06:42→18:26)
[2024-11-03 08:51] LABS: Hematocrit 20.3 % (37.0-47.0); Hemoglobin 6.2 g/dL (12.0-16.0); Mean Corp Hgb Conc. 30.5 g/dL (33.0-37.0); Mean Corpuscular Volume 90.2 fL (81.0-99.0); Platelet Count 452 10^3/uL (130-400); Red Cell Dist. Width 17.2 % (11.5-14.5)
[2024-11-03] MEDS: ASPIR LOW (ENTERIC COATED) 81 MG PO (08:51)
[2024-11-03] MEDS: FIRVANQ 250 MG PO ×3 (08:51→21:48)
[2024-11-03] MEDS: LANTUS 0.15 UNITS SC (08:51)
[2024-11-03] MEDS: HEPARIN 5000 UNITS SC ×3 (08:51→23:12)
[2024-11-03] MEDS: FLORASTOR 250 MG PO ×2 (08:51→20:15)
[2024-11-03] MEDS: PLAVIX 75 MG PO (08:51)
[2024-11-03 09:59] LABS: ALT (SGPT) 13 U/L (0-35); AST (SGOT) 15 U/L (14-36); Albumin 2.9 g/dl (3.5-5.0); Alkaline Phosphatase 83 U/L (38-126); Blood Urea Nitrogen 35 mg/dl (7-17); Calcium 8.5 mg/dl (8.4-10.2); Carbon Dioxide 22 mmol/L (22-30); Chloride 98 mmol/L (98-107); Estimated Creatinine Clearance 13 ml/min; Glucose 158 mg/dl (70-99); Potassium 3.5 mmol/L (3.5-5.1); Sodium 133 mmol/L (135-145); Total Protein 6.1 g/dl (6.3-8.2); eGFR 10.01
--- NOTE | 2024-11-03 10:34 | CM ---
PT OT indicates rehab when dc at [facility].
MAX assist of 2 . Will need ambulance .
Continues with HD 3 x weekly.HD today.
As per cardiology may need pacemaker.
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
[facility]
Report [phone]

PLAN Return to [facility] Pt when medically ready
[2024-11-03] MEDS: PERCOCET 5/325 1 TABLET PO ×2 (11:15→18:44)
[2024-11-03] MEDS: ZOSYN 50 IV ×2 (11:40→21:54)
--- NOTE | 2024-11-03 11:43 | PTCARENOTE ---
1 unit of PRBC started with HD RN at bedside. 1 unit PRBC to be infused with HD. No signs or symptoms of reaction. Pt resting comfortably in bed. Will continue to monitor.
--- NOTE | 2024-11-03 12:00 | W.PN.NEPH.HD ---
Assessment
-
Seen on HD> No complaints. VSS. Hgb 6.2, for PRBC on HD. access ok CVC
Progress Note - Hemodialysis
-
Date of Service: November 03, 2024
Duration: 30 minutes and 3 hours
Potassium Bath: 2
Calcium Bath: 2.5
Opti-Dialyzer: 160
Ultrafiltration: Other (2kg)
Blood Flow: 400
Dialysate Flow: 600
Heparin: 0
EPO: 82034 units
[2024-11-03 12:11] LABS: Glucose - Point of Care 139 mg/dl (70-99)
[2024-11-03] MEDS: NOVOLOG FLEXPEN-LOW RESISTANCE SC ×2 (12:16→18:31)
--- NOTE | 2024-11-03 12:43 | W.PN.HOSP.TC ---
Today's Communication/Plan
-
For pacemaker today.
1 unit of blood transfusion
Assessment / Plan
Assessment / Plan
Impression:
Patient is a 59y F with PMH significant for ASCVD, ESRD on HD and recent CDiff infection who presents to ED complaining of generalized weakness and fatigue. Patient denies any other specific or focal complaints. She reports multiple prior
hospitalizations - most recently at [facility] about 2 weeks ago where she was diagnosed with CDiff colitis. She has been on tapering doses of oral vancomycin since that time with improvement in stool consistency. Prior to that, patient was hospitalized
for urinary tract infection.
Patient reports several days of weakness and fatigue. She denies sore throat, fevers / chills, cough / dyspnea, abdominal pain, N/V/D. She states that her urine has been dark appearing. No dysuria or flank pain.
Assessment/plan:
Sepsis
Suspected pneumonia
-Febrile episode overnight 10/27, resolved
� With persistent leukocytosis and clear evidence of consolidation versus mass on CT, will switch ceftriaxone to Zosyn.
�Monitor leukocytosis
�Will need close imaging outpatient after antibiotic course
Cardiogenic syncope
Rapid Response 10/28
#Syncopal Episode
#Second Degree Block
#Pauses
-Noted 12-second pause
-ECHO�EF 25 to 30%, stage III diastolic dysfunction
-Cards consulted
-Cont on Tele
11/03
� For pacemaker today
� Resume beta-guillermina as needed for cardiomyopathy
Troponin Elevation
-most likely non ischemic myocardial injury 2/2 to CKD alogn with pause
-Cards consulted
ASCVD (CAD, PAD)
Complicated by systolic CHF
Continue current CV med regimen including DAPT, statin, etc.
Follow I/Os, daily weights, etc.
Not on diuretic regimen
manage volume on HD.
Obtain records from [facility] for review.
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
Patient has tentative plans for eventual amputation.
No evidence of surrounding erythema, active infection, etc.
Wound care ordered
ESRD on HD
R IJ catheter in place. Has been on HD x 3 months per patient.
Benign Hypertension
Continue current med regimen (presently only on non-HD days).
Adjust dosing / timing as needed for adequate control.
DM-II
Stable. Resume Home dosing
Follow glucose and cover with SSI as needed.
Recent CDiff Colitis - no diarrhea currently
No current diarrhea. Completing tapering course of oral vancomycin.
Was on BID dosing per taper - increased back to QID for now for prophylaxis while on new abx.
Monitor for any recurrent diarrhea.
Continue contact precautions for now.
Acute on chronic anemia ' anemia of chronic disease of CKD'
Continue current iron supplementation.
No evidence of active bleeding.
Received 1 unit of blood transfusion with dialysis
Hyponatremia.
Continue to monitor
CODE STATUS: Full code
DVT prophylaxis: Heparin.
Diet: NPO for pacemaker today
Family communication: Discussed with sister at bedside
Disposition: For pacemaker today.
1 unit of blood transfusion
Total time spent on today's encounter was 55 minutes which included time spent in counseling the patient/family regarding diagnosis and treatment plan as listed above, goals of care, and symptom management. Case was discussed with nursing staff,
specialists, and care coordinators/case management. All labs and imaging personally reviewed by me. Remainder the time spent in detailed review of previous records, lab data, imaging, and other medical provider documentation.
Anticipated Discharge: 24 - 48 hours
Subjective/Interval History
-
Date of Service: November 03, 2024
Patient seen and examined at bedside, denies any chest pain or shortness of breath, no abdominal pain, no nausea, no vomiting, no diarrhea or constipation. Hemoglobin dropped to 6.2, for pacemaker placement today.
Objective Data
-
Labs:
Laboratory Results
09/29/25
08:20
WBC 14.9 H
Hgb 6.2 L*
Hct 20.3 L*
Plt Count 452 H
Sodium 133 L
Potassium 3.5
Chloride 98
Carbon Dioxide 22
BUN 35 H
Creatinine 4.7 H*
Glucose 158 H
Calcium 8.5
Total Bilirubin 0.5
AST 15
ALT 13
Alkaline Phosphatase 83
Vital Signs:
Vital Signs
Temp Pulse Resp BP Pulse Ox
98.4 F 83 18 120/59 95
11/03/24 12:05 11/03/24 12:05 11/03/24 12:05 11/03/24 12:05 11/03/24 10:58
I&O
11/02/24 11/03/24 11/04/24
06:59 06:59 06:59
Intake Total 770 / 770 1200 / 1200 250 / 250
Output Total
Balance 770 / 770 1199 / 1199 250 / 250
Physical Exam
-
General: Well Developed, Well Nourished, No Apparent Distress and Comfortable
HEENT: Normocephalic, Atraumatic, Moist Mucous Membranes, No Ptosis, PERRLA and Nose Appears Normal
Respiratory: Clear to Auscultation and Non Labored Respirations
Cardiac: Regular Rhythm and S1/S2
Breast: Deferred by me
GI: Soft, Nontender, Nondistended and Normal Bowel Sounds
Genito-urinary: No Costovertebral Tender
Musculoskeletal: No Clubbing, No Cyanosis, No Edema and Other (Left second toe dry gangrene)
Skin: Warm
Neuro: Awake, Alert, Oriented, AO x 3 and No Motor Deficits
Psych: Calm
Data Reviewed
-
Diagnostic Radiology: Image personally visualized and interpreted and Report Reviewed by me
CT Scan: Image personally visualized and interpreted and Report Reviewed by me
Ultrasound: Image personally visualized and interpreted and Report Reviewed by me
MRI: Image personally visualized and interpreted and Report Reviewed by me
Medical Tests (Nuc Med, Echo etc): Image personally visualized and interpreted and Report Reviewed by me
Labs: Labs Reviewed by me
Old Records: Reviewed
[2024-11-03] MEDS: FIRVANQ PO (13:43)
--- NOTE | 2024-11-03 13:59 | ITS.CL.PACE ---
[employer] - Pacemaker Implant
Pacemaker Implant
Procedure Report:
LEADLESS PACEMAKER IMPLANTATION
DATE: November 03, 2024
PCP: Simon Cota
Flow Nurse: Dr. Adi Alas
Echocardiography Radiology Technologist: Dr. Edgardo Peoples
INDICATION:
Nonreversible symptomatic bradycardia due to sick sinus syndrome as well as high-grade AV block in the absence of atrial fibrillation as an alternative to dual-chamber pacing because dual-chamber transvenous pacing system in this patient is
considered high risk (recurrent infections/sepsis, end-stage renal disease on hemodialysis) and deemed not necessary for effective therapy.
She does have [employer] subcutaneous ICD which was implanted September 2024.
Several studies have shown safety of placing and using a leadless pacemaker in the presence of a subcutaneous ICD
trimming operator: Dr Arnaud Corea
PROCEDURE:
Sedation provided via the anesthesia department.
Femoral intravenous access is obtained. Right femoral venous access initially with an 8 Ug[place] sheath progressively dilated upwards to allow placement of the Medtronic Micra 27 Ugandan introducer venous sheath.
The Medtronic Micra delivery system (deflectable catheter with Micra device) was then introduced via the introducer/sheath into the RA. The sheath was then withdrawn to the level of the IVC. Using multiple fluoroscopic views, the delivery system was
then guided across the TV into the RV. A mid septal location was targeted. Angiogram in both MCNULTY (MCNULTY space sign present) and KOREAN view confirmed septal location and the device was deployed. Testing demonstrated adequate and stable parameters. Pull
and hold test was successful. During the tug test, ventricular tachycardia at 102 bpm, hemodynamically stable resulted. Burst ventricular pacing at 120 bpm paced terminated the tachycardia. Repeat testing demonstrated stable parameters. The tether
was removed and repeat testing demonstrated stable parameters. The introducer / sheath were removed.
Figure of 8 stitch was used to close the venous access sites.
DEVICE:
Medtronic MICRA AVR system [id number], SN: [id number]
Capture threshold: 0.75 V @0.24 ms
R wave sensing 11 mV
Pacing impedance: 730 ohms
Barry pacing mode: VVI 50 ppm
COMPLICATIONS: None
SUMMARY / RECOMMENDATIONS:
Implantation of leadless pacing system
Copy:
PCP: Simon Cota
Flow Nurse: Dr. Adi Alas
Echocardiography Radiology Technologist: Dr. Edgardo Peoples
--- NOTE | 2024-11-03 15:43 | PTCARENOTE ---
Report provided to laborer pipeline.
[2024-11-03 17:56] LABS: Glucose - Point of Care 64 mg/dl (70-99)
--- NOTE | 2024-11-03 18:06 | PTCARENOTE ---
Report provided to IVU. Daughter took patient belongings, IVU RN informed.
[2024-11-03 18:25] LABS: Glucose - Point of Care 72 mg/dl (70-99)
[2024-11-03] MEDS: FERROUS SULFATE ORAL LIQUID 162.5 MG PO (18:42)
--- NOTE | 2024-11-03 19:18 | PTCARENOTE ---
Received report from label remover RN. Patient AOx3. VSS. Right groin dressing has slight drainage. Right pedal pulse thready on doppler. Plan of care discussed. Left w/ call monet in reach.
[2024-11-03] MEDS: ZETIA 10 MG PO (21:50)
[2024-11-03] MEDS: LIPITOR 40 MG PO (21:50)
[2024-11-03] MEDS: LANTUS 0.1 UNITS SC (22:00)
[2024-11-03 22:05] LABS: Glucose - Point of Care 178 mg/dl (70-99)
[2024-11-03] MEDS: TYLENOL 650 MG PO (22:28)
--- NOTE | 2024-11-03 22:59 | PTCARENOTE ---
Patient received at change of shift resting in the bed. Bedrest and HOB restrictions maintained as ordered. Figure of eight right groin, dressing C/D/I, DP pulse obtainable with doppler. The patient endorses back/sacral pain and some burning at her
groin site, PRN Percocet given by previous shift. Figure of eight sutures removed as ordered, gauze and tegaderm applied. Upon site check following figure of eight removal the dressing was saturated, surrounding area soft to palpation, no evidence
of hematoma. CT surgery TIAGO Alonzo to bedside to evaluate patient. Five minutes of manual pressure was applied following by a new pressure dressing over the site. Patient to maintain bedrest for additional four hours due to oozing at the site. Bed
in alarm in place as the patient is a high fall risk. Bed in lowest position, wheels locked. Call monet within reach. Plan of care discussed with patient. Care ongoing.
[2024-11-04] VITALS (9 sets, daily range): BP systolic 104–131; BP diastolic 54–80; PULSE 83; O2SAT 99; BMI 23.0
[2024-11-04] MEDS: PERCOCET 5/325 1 TABLET PO ×2 (00:48→12:54)
[2024-11-04 05:07] LABS: Blood Urea Nitrogen 15 mg/dl (7-17); Calcium 8.3 mg/dl (8.4-10.2); Carbon Dioxide 25 mmol/L (22-30); Chloride 99 mmol/L (98-107); Estimated Creatinine Clearance 19 ml/min; Glucose 122 mg/dl (70-99); Potassium 3.3 mmol/L (3.5-5.1); Sodium 135 mmol/L (135-145); eGFR 16.49
[2024-11-04 05:34] LABS: Hematocrit 24.5 % (37.0-47.0); Hemoglobin 7.6 g/dL (12.0-16.0); Mean Corp Hgb Conc. 31.0 g/dL (33.0-37.0); Mean Corpuscular Volume 90.7 fL (81.0-99.0); Platelet Count 504 10^3/uL (130-400); Red Cell Dist. Width 17.1 % (11.5-14.5)
[2024-11-04 07:24] LABS: Glucose - Point of Care 119 mg/dl (70-99)
[2024-11-04] MEDS: NOVOLOG FLEXPEN-LOW RESISTANCE SC ×2 (09:07→12:53)
[2024-11-04] MEDS: PLAVIX 75 MG PO (09:43)
[2024-11-04] MEDS: IMDUR (EXTENDED RELEASE) 30 MG PO (09:43)
[2024-11-04] MEDS: HEPARIN 5000 UNITS SC ×3 (09:44→21:39)
[2024-11-04] MEDS: ZOSYN 50 IV ×2 (09:44→21:36)
[2024-11-04] MEDS: FLORASTOR 250 MG PO ×2 (09:44→21:39)
[2024-11-04] MEDS: FIRVANQ 250 MG PO ×4 (09:44→21:42)
[2024-11-04] MEDS: KCL 20 MEQ PO (09:44)
[2024-11-04] MEDS: ASPIR LOW (ENTERIC COATED) 81 MG PO (09:44)
[2024-11-04] MEDS: LANTUS 0.15 UNITS SC (09:47)
--- NOTE | 2024-11-04 10:07 | W.PN.CARDCBS ---
Addendum entered and electronically signed by Moreno Boston MD 11/04/24 12:35:
I saw and examined the patient.
The Operations Support Professionals's note was reviewed and I agree with the note.
Comment:
GEN: No distress, awake, Ox3
HEENT: supple, anicteric, mmm
LUNGS: CTA, no wheezes/rales
CV: Reg, S1/S2, 1/6 syst LSB, no gallop
ABD: soft, BS+, NT/ND
EXT: No edema
NEURO: Gross non-focal
SKIN: No rash
Plan:
Device in place and functioning well.
Will restart low-dose carvedilol today.
Continue hemodialysis per nephrology.
Continue medical therapy for CAD/chronic heart failure with reduced ejection fraction.
Continue aspirin, Plavix, atorvastatin, Zetia, Imdur, and low-dose carvedilol.
Original Note:
Today's Communication / Plan
-
micra functioning appropriately
replete K, check mag
resume coreg at lower dose
med mgmt of CHF/CM/CAD
PT
Outpatient follow-up with Dr. Alas upon DC
ok for transfer to tele
will plan to sign off
Impression / Plan
-
PCP: Simon Cota
Hearing Specialist: Dr. Adi Alas
Development Manager: Dr. Peoples
Impression:
Presents 10/24/2024 with generalized weakness
Recent admission to [facility] for C diff early 10/2024
Sepsis / PNA / UTI
Syncope with rapid response 10/28/2024
Sinus pause 11 seconds on tele 10/28/24 and 6 sec Oct 30
Sacral wound infection
Gangrenous right second toe
Coronary artery disease
CABG x 4 (patent KIMBROUGH to LAD & SVG to RCA) SVG to OM & SVG to RAMUS unknown date
LAD ALICE at touchdown of KIMBROUGH 2018, ALICE to SVG-RCA, occluded SVG to Ramus by cath 2018
Circumflex stent December 2022
h/o [employer]-eluting stents to proximal circumflex with severe in-stent restenosis on cath 05/25/2024
Ischemic cardiomyopathy, EF 30%
s/p [employer] Emblem SubQ ICD (MRI conditional) 09/17/2024
Recurrent syncope
PVD with toe gangrene
History of pleural effusions requiring thoracentesis
Diabetes
Hypertension
Hyperlipidemia
Neuropathy
Chronic hyponatremia
Chronic anemia, has required transfusions
ESRD-HD
COPD
Former smoker
Echo 10/01/2018: EF 45%, hypokinesis of inferolateral and inferoseptal smith. Moderate LVH. Mild MR
Echo 05/10/2024: EF 30%. Moderate global LV hypokinesis. Stage III diastolic dysfunction, restrictive filling, mildly dilated left atrium.. Moderate MR. Mild TR. PAP 38 mmHg.
Echo 10/28/2024: EF 25 to 30%, stage III diastolic dysfunction, global hypokinesis with possible septal dyskinesis, moderate MR
Cardiac catheterization 05/22/2024 ([facility]): LM: Patent. LAD: Proximal occlusion with KIMBROUGH to LAD. Circumflex: Proximal stent with severe in-stent restenosis, distal to stented segment 95% eccentric stenosis. RCA SUSTAINABILITY CONSULTANT. SVG to OM occluded. SVG to
RCA patent. KIMBROUGH to LAD patent with minimal disease distal to touchdown. 'Conclusion patent KIMBROUGH to LAD, SVG to RCA. Severe in-stent restenosis of proximal left circumflex stent with severe disease distal to the stented segment. There is already
2 layers of stents in this area and we were unable to cross with wire. Recommend continued medical management'
RA 7 mmHg; RV 56/3 mmHg; PA 58/23 with a mean of 36 mmHg; PCW 20 mmHg; LV 154/4, MAP 91mmhg cardiac output 4.09 l/min, cardiac index 2.12 L/min/m2
Plan:
- Patient came to [facility] 10/24/2024 from [place] with an episode of syncope and within 24 hours of admission had a witnessed 11-second pause and had an episode of unresponsiveness associated with that pause as well as a 6 second pause 10/30/24 during
PT. Also known to have she did second-degree AV block.
- She has subcutaneous ICD which does not provide pacing support. After review with EP, underwent Micra leadless pacemaker placement on 11/03/2024
- On review of telemetry overnight, remains in sinus rhythm with frequent PVCs. device functioning appropriately by rep interrogation 11/04. Replete K. Check magnesium. Attempt to keep K>4, mag>2. Would consider resuming low-dose Coreg on
nondialysis days
- Continue volume mgmt through HD
-She has EF 25 to 30%, which is known and presumably ischemic cardiomyopathy. Resume Coreg as able. Not candidate for PETER/ARB/ARNI/Aldactone/SGLT2 due to end-stage renal disease.
- Troponin peaked at 0.855, but denies chest pain. Managing as nonischemic myocardial injury. She has known multivessel CAD with 2 out of 4 bypass grafts occluded by most recent cath 05/2024. She has multiple layers of circumflex stents and wire
was unable to be passed on prior catheterization in May 2024 at [facility].
- LDL 21 and outpatient doses of atorvastatin 40 mg daily plus Zetia 10 mg daily have been continued
- Continue DAPT, Imdur, and statin.
- Also with acute on chronic anemia this admission which could be exacerbating demand ischemia. Transfuse as per primary service
- Remains on enhanced precautions for recent C. difficile colitis
- PT eval
- Outpatient follow-up with Dr. Alas upon DC
- will plan to sign off
- d/w nursing. ok for transfer to [facility]
HPI 10/28/2024:
Patient is a 59-year-old female with extensive past medical history including complicated cardiac history multiple coronary interventions including CABG x 4 with known occlusion of SVG to OM and SVG to ramus, stenting of LAD at touchdown of KIMBROUGH and
ALICE to SVG of RCA as well as circumflex stenting, ischemic cardiomyopathy, heart failure with reduced ejection fraction, PVD, end-stage renal disease on hemodialysis, hypertension, hyperlipidemia, diabetes, PVD, chronic anemia requiring transfusions
and COPD. She has had multiple hospitalizations at [facility] over the last several months. Due to recurrent syncope and ischemic cardiomyopathy she underwent placement of subcutaneous ICD 09/17/2024 rather than transvascular ICD
given end-stage renal disease on hemodialysis and presence of PVD. She was readmitted late September 2024 with altered mental status and leukocytosis and was found to have C. difficile infection. Now presents to [facility] with generalized weakness and
fatigue. Patient found to have sepsis possibly from UTI or pneumonia. Ongoing IV antibiotics. Around noon on 10/28/2024 patient was being placed in bed after sitting in chair. Staff started to raise HOB when she complained of feeling nauseous then
proceeded to have a syncopal event and was unresponsive. Telemetry showed an 11-second pause. Rapid response was called. Patient regained consciousness fairly quickly and had spontaneous return of sinus rhythm.
Patient reports she had 1 syncopal episode in September with dialysis but does not have longstanding history of syncope. Family (son and ) at bedside who helps to provide and assist with history
Progress Note - Hearing Specialist
Subjective
Date of Service: November 04, 2024
no issues overnight
Objective
Labs:
11/04/24 04:25
11/04/24 04:25
Labs
Hgb 7.6 g/dL (12.0-16.0) L D 11/04/24 04:25
Hct 24.5 % (37.0-47.0) L 11/04/24 04:25
Plt Count 504 10^3/uL (130-400) H 11/04/24 04:25
Sodium 135 mmol/L (135-145) 11/04/24 04:25
Potassium 3.3 mmol/L (3.5-5.1) L 11/04/24 04:25
BUN 15 mg/dl (7-17) 11/04/24 04:25
Creatinine 3.1 mg/dL (0.6-1.0) H 11/04/24 04:25
Glucose 122 mg/dl (70-99) H 11/04/24 04:25
Vital Signs and I&O:
Vital Signs
Temp Pulse Resp BP Pulse Ox
97.8 F 76 20 130/59 96
11/04/24 07:25 11/04/24 08:00 11/04/24 07:25 11/04/24 07:25 11/04/24 07:25
Vital Signs
Temp Pulse Resp BP Pulse Ox
97.8 F 76 20 130/59 96
11/04/24 07:25 11/04/24 08:00 11/04/24 07:25 11/04/24 07:25 11/04/24 07:25
Intake & Output
11/02/24 11/03/24 11/04/24 11/05/24
07:59 07:59 07:59 07:59
Intake Total 770 / 770 1200 / 1200 300 / 300
Output Total
Balance 770 / 770 1199 / 1199 300 / 300
Physical Exam
Physical Exam
GEN: No distress, awake, alert, oriented x3. chronically ill appearing. on supp O2
HEENT: supple, anicteric, mmm, eomi
LUNGS: Few crackles B/L bases, no wheezes
CV: Reg, S1/S2, 1/6 murmur
ABD: soft, BS+, NT/ND
EXT: No cyanosis, clubbing, edema. boots in place
NEURO: Gross non-focal
SKIN: Warm, pink, dry. No rash
--- NOTE | 2024-11-04 10:54 | W.PN.NEPH.PH ---
Today's Communication / Plan
-
HD tomorrow
Assessment/Plan
-
59y F with PMH significant for ASCVD, ESRD on HD and recent CDiff infection who presents to ED complaining of generalized weakness and fatigue. Patient denies any other specific or focal complaints. She reports multiple prior hospitalizations -
most recently at [facility] about 2 weeks ago where she was diagnosed with CDiff colitis.
She has been on dialysis for about 3 months via permacath
She follows with Dr. Goodwin at [facility] yet to start there. has been at [facility] and [facility]
Renal consult for dialysis management
Impression
ESRD TTS [facility]
Pneumonia
C. difficile
Anemia of chronic disease
CHF ejection fraction 25%
Plan
Dialysis tomorrow
will be doing MWF at [facility]
Ultrafiltration as blood pressure will tolerate as patient still has persistent hyponatremia consistent with volume overload
EPO for anemia
transfuse prn
-
-
Date of Service: November 04, 2024
CC / HPI / ROS
-
Chief Complaint:
Pneumonia sepsis
History of Present Illness:
ESRD now transition to Sunday
tolerated HD yesterday
Remains on doxycycline for pneumonia
Remains on oral vancomycin for C. difficile
Hemodynamically stable on antihypertensives and dry weight
Hgb up to 7.6 after PRBC 11/03
s/p PPM 11/03
Review of Systems:
No chest pain or shortness of breath
Labs
-
Labs:
WBC 12.3 10^3/uL (4.8-10.8) H 11/04/24 04:25
RBC 2.70 10^6/uL (4.20-5.40) L 11/04/24 04:25
Hgb 7.6 g/dL (12.0-16.0) L D 11/04/24 04:25
Hct 24.5 % (37.0-47.0) L 11/04/24 04:25
Plt Count 504 10^3/uL (130-400) H 11/04/24 04:25
Sodium 135 mmol/L (135-145) 11/04/24 04:25
Potassium 3.3 mmol/L (3.5-5.1) L 11/04/24 04:25
Chloride 99 mmol/L (98-107) 11/04/24 04:25
Carbon Dioxide 25 mmol/L (22-30) 11/04/24 04:25
BUN 15 mg/dl (7-17) 11/04/24 04:25
Creatinine 3.1 mg/dL (0.6-1.0) H 11/04/24 04:25
eGFR 16.49 11/04/24 04:25
Glucose 122 mg/dl (70-99) H 11/04/24 04:25
Calcium 8.3 mg/dl (8.4-10.2) L 11/04/24 04:25
Phosphorus 4.1 mg/dl (2.5-4.5) 10/28/24 12:34
Albumin 2.9 g/dl (3.5-5.0) L 11/03/24 08:20
Physical Exam
-
Vital Signs:
Vital Signs
Temp Pulse Resp BP Pulse Ox
97.8 F 76 20 130/59 96
11/04/24 07:25 11/04/24 08:00 11/04/24 07:25 11/04/24 07:25 11/04/24 09:45
Cardiovascular:: Regular rate and rhythm
Respiratory:: Bilateral: Coarse
Lung Excursion:: Normal
Abdomen:: Nontender and Soft
Bowel Sounds:: Normal
Extremity Edema:: None: Bilateral:
[2024-11-04] MEDS: NOVOLOG FLEXPEN 2 UNITS SC ×3 (11:00→17:56)
--- NOTE | 2024-11-04 11:13 | CM ---
Addendum entered by Nayely Francisco RN 11/04/24 14:31:
Plan is for the patient to return back to [facility] after HD. Notified Christine at [facility].
Original Note:
Chart reviewed. 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 Patient is using a RW and also has wheelchair. PT evaluation recommending Rehab. Patient receives HD at [facility] M//. Spoke to Christine at [facility] to confirm long
term bed. Plan is for the patient to go back to [facility] when medically stable. CM to follow
[2024-11-04 11:14] LABS: Magnesium 2.1 mg/dl (1.6-2.3)
--- NOTE | 2024-11-04 12:16 | PTCARENOTE ---
Patient received from orthodontist RN; Patient with confused answers at times but AAOx3, responds spontaneously to RN and follows commands; Neuropathy present in B/L hands; Anxious and forgetful; VSS; SR with PVC's and BBBC on monitor; AICD and PPM
present - PPM settings VVI 50; +1 B/L LE edema; DP present with doppler and +1 radial pulses; Lung sounds diminished at bases; Incontinent of stool - diarrhea resolving; Incontinent of urine - oliguric; B/L foot drop present; Wounds as per nursing
flowsheets; PIVx1 - #24 left forearm; RIJ Tunneled catheter for HD present; See nursing documentation for further information
[2024-11-04 12:56] LABS: Glucose - Point of Care 148 mg/dl (70-99)
--- NOTE | 2024-11-04 14:25 | W.PN.HOSP.TC ---
Today's Communication/Plan
-
Resumed carvedilol.
Monitor leukocytosis and anemia.
Possible discharge tomorrow to rehab after HD
Assessment / Plan
Assessment / Plan
Impression:
Patient is a 59y F with PMH significant for ASCVD, ESRD on HD and recent CDiff infection who presents to ED complaining of generalized weakness and fatigue. Patient denies any other specific or focal complaints. She reports multiple prior
hospitalizations - most recently at [facility] about 2 weeks ago where she was diagnosed with CDiff colitis. She has been on tapering doses of oral vancomycin since that time with improvement in stool consistency. Prior to that, patient was hospitalized
for urinary tract infection.
Patient reports several days of weakness and fatigue. She denies sore throat, fevers / chills, cough / dyspnea, abdominal pain, N/V/D. She states that her urine has been dark appearing. No dysuria or flank pain.
Assessment/plan:
Sepsis
Suspected pneumonia
-Febrile episode overnight 10/27, resolved
� With persistent leukocytosis and clear evidence of consolidation versus mass on CT, switched ceftriaxone to Zosyn.
�Monitor leukocytosis---> improved
�Will need close imaging outpatient after antibiotic course
Cardiogenic syncope
Rapid Response 10/28
#Syncopal Episode
#Second Degree Block
#Pauses
-Noted 12-second pause
-ECHO�EF 25 to 30%, stage III diastolic dysfunction
-Cards consulted
-Cont on Tele
11/03
� For pacemaker today
� Resume beta-guillermina as needed for cardiomyopathy
11/04
Status post pacemaker.
Resumed carvedilol
Troponin Elevation
-most likely non ischemic myocardial injury 2/2 to CKD along with pause
-Cards consulted
ASCVD (CAD, PAD)
Complicated by systolic CHF
Continue current CV med regimen including DAPT, statin, etc.
Follow I/Os, daily weights, etc.
Not on diuretic regimen
manage volume on HD.
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
Patient has tentative plans for eventual amputation.
No evidence of surrounding erythema, active infection, etc.
Wound care ordered
ESRD on HD
R IJ catheter in place. Has been on HD x 3 months per patient.
Benign Hypertension
Continue current med regimen (presently only on non-HD days).
Adjust dosing / timing as needed for adequate control.
DM-II
Stable. Resume Home dosing
Follow glucose and cover with SSI as needed.
Recent CDiff Colitis - no diarrhea currently
No current diarrhea. Completing tapering course of oral vancomycin.
Was on BID dosing per taper - increased back to QID for now for prophylaxis while on new abx.
Monitor for any recurrent diarrhea.
Continue contact precautions for now.
Acute on chronic anemia ' anemia of chronic disease of CKD'
Continue current iron supplementation.
No evidence of active bleeding.
Received 1 unit of blood transfusion with dialysis
Hyponatremia.
Continue to monitor
CODE STATUS: Full code
DVT prophylaxis: Heparin.
Diet: Diabetic
Family communication: Discussed with sister at bedside
Disposition: Resumed carvedilol.
Monitor leukocytosis and anemia.
Possible discharge tomorrow to rehab after HD
Total time spent on today's encounter was 55 minutes which included time spent in counseling the patient/family regarding diagnosis and treatment plan as listed above, goals of care, and symptom management. Case was discussed with nursing staff,
specialists, and care coordinators/case management. All labs and imaging personally reviewed by me. Remainder the time spent in detailed review of previous records, lab data, imaging, and other medical provider documentation.
Anticipated Discharge: Within 24 hours
Subjective/Interval History
-
Date of Service: November 04, 2024
Patient seen and examined at bedside, denies any chest pain or shortness of breath, no abdominal pain, no nausea, no vomiting, no diarrhea or constipation.
Status post pacemaker.
Objective Data
-
Labs:
Laboratory Results
11/04/24
04:25
WBC 12.3 H
Hgb 7.6 L D
Hct 24.5 L
Plt Count 504 H
Sodium 135
Potassium 3.3 L
Chloride 99
Carbon Dioxide 25
BUN 15
Creatinine 3.1 H
Glucose 122 H
Calcium 8.3 L
Vital Signs:
Vital Signs
Temp Pulse Resp BP Pulse Ox
99.0 F 83 20 125/80 99
11/04/24 12:55 11/04/24 12:00 11/04/24 11:54 11/04/24 11:54 11/04/24 11:54
I&O
11/03/24 11/04/24 11/05/24
06:59 06:59 06:59
Intake Total 1200 / 1200 300 / 300 550 / 550
Output Total
Balance 1199 / 1199 300 / 300 550 / 550
Physical Exam
-
General: Well Developed, Well Nourished, No Apparent Distress and Comfortable
HEENT: Normocephalic, Atraumatic, Moist Mucous Membranes, No Ptosis, PERRLA and Nose Appears Normal
Respiratory: Clear to Auscultation, Non Labored Respirations and Chest Tubes (Pacemaker scar clean)
Cardiac: Regular Rhythm and S1/S2
Breast: Deferred by me
GI: Soft, Nontender, Nondistended and Normal Bowel Sounds
Genito-urinary: No Costovertebral Tender
Musculoskeletal: No Clubbing, No Cyanosis, No Edema and Other (Left second toe dry gangrene)
Skin: Warm
Neuro: Awake, Alert, Oriented, AO x 3 and No Motor Deficits
Psych: Calm
[2024-11-04 17:41] LABS: Glucose - Point of Care 196 mg/dl (70-99)
[2024-11-04] MEDS: NOVOLOG FLEXPEN-LOW RESISTANCE 1 UNITS SC (17:56)
[2024-11-04] MEDS: FERROUS SULFATE ORAL LIQUID 162.5 MG PO (17:57)
--- NOTE | 2024-11-04 19:33 | PTCARENOTE ---
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 No pain reported at this time. Patient oriented to staff and room. oriented x3. Pt family at bedside. Plan of care ongoing
[2024-11-04 21:29] LABS: Glucose - Point of Care 260 mg/dl (70-99)
[2024-11-04] MEDS: LIPITOR 40 MG PO (21:39)
[2024-11-04] MEDS: ZETIA 10 MG PO (21:39)
[2024-11-04] MEDS: LANTUS 0.1 UNITS SC (21:42)
[2024-11-04] MEDS: TYLENOL 650 MG PO (21:57)
[2024-11-05 03:00] VITALS: BP 125/64
[2024-11-05 03:45] VITALS: BMI 24.2
[2024-11-05 07:30] VITALS: BP 124/62
[2024-11-05 07:57] LABS: Glucose - Point of Care 254 mg/dl (70-99)
[2024-11-05] MEDS: PLAVIX 75 MG PO (08:03)
[2024-11-05] MEDS: ASPIR LOW (ENTERIC COATED) 81 MG PO (08:03)
[2024-11-05] MEDS: HEPARIN 5000 UNITS SC (08:03)
[2024-11-05] MEDS: FLORASTOR 250 MG PO (08:03)
[2024-11-05] MEDS: FIRVANQ 250 MG PO ×2 (08:03→12:46)
[2024-11-05] MEDS: LANTUS 0.15 UNITS SC (08:06)
--- NOTE | 2024-11-05 09:43 | W.PN.UPDATE ---
Update Note
Progress Note Update
Patient had Micra PPM placed on 11/03/2024 for sinus pauses. Patient also has a [employer] subcutaneous ICD that was placed at [facility] on 09/17/2024. Patient has known presumed ischemic CM. Patient will follow-up with her outpatient
wholesale agronomist. I called the patient's outpatient parts room associate, Dr. Galvez, at [facility] and made an appointment for patient to be seen on 12/02/2024 at 1300. I also placed an order for records to be released to Dr. Galvez's office and provided
the fax number for his office to help with continuity of care.
[2024-11-05] MEDS: NOVOLOG FLEXPEN 2 UNITS SC ×2 (09:47→11:37)
[2024-11-05] MEDS: NOVOLOG FLEXPEN-LOW RESISTANCE 3 UNITS SC ×2 (09:47→11:38)
[2024-11-05] MEDS: ZOSYN 50 IV (09:48)
[2024-11-05] MEDS: PERCOCET 5/325 1 TABLET PO (10:37)
--- NOTE | 2024-11-05 11:04 | CM ---
Addendum entered by Donna Shell 11/05/24 14:58:
1730 transport - Christine liaison notified
Addendum entered by Donna Shell 11/05/24 11:10:
Patient seen at bedside
IMM explained & signed. In chart
Original Note:
Patient chart reviewed
HD today
Patient from [facility]
referral in [facility] - spoke with Christine liaison
PLAN: Return to [facility]
report #: [phone]
fax #: [phone]
transportation forms on chart
0.........................................................................................................................................................................................................................................................
..........................................................................................................................................................................................................................................................
..........................................................................................................................................................................................................................................................
..........................................................................................................................................................................................................................................................
..........................................................................................................................................................................................................................................................
..........................................................................................................................................................................................................................................................
...................................................................................0.
[2024-11-05 11:10] VITALS: BP 135/56
[2024-11-05 11:30] LABS: Glucose - Point of Care 253 mg/dl (70-99)
[2024-11-05] MEDS: MANNITOL 25% 12.5 GRAMS IV ×2 (13:15→15:32)
[2024-11-05 13:21] LABS: Hematocrit 23.7 % (37.0-47.0); Hemoglobin 7.3 g/dL (12.0-16.0); Mean Corp Hgb Conc. 30.8 g/dL (33.0-37.0); Mean Corpuscular Volume 88.8 fL (81.0-99.0); Platelet Count 470 10^3/uL (130-400); Red Cell Dist. Width 17.0 % (11.5-14.5)
[2024-11-05] MEDS: FLEXBUMIN 25% FOR HEMODIALYSIS 12.5 GRAMS IV (13:24)
[2024-11-05] MEDS: RETACRIT 10000 UNITS IV (13:24)
--- NOTE | 2024-11-05 13:26 | W.PN.HOSP.TC ---
Today's Communication/Plan
-
Discharge today to SNF
Assessment / Plan
Assessment / Plan
Impression:
Patient is a 59y F with PMH significant for ASCVD, ESRD on HD and recent CDiff infection who presents to ED complaining of generalized weakness and fatigue. Patient denies any other specific or focal complaints. She reports multiple prior
hospitalizations - most recently at [facility] about 2 weeks ago where she was diagnosed with CDiff colitis. She has been on tapering doses of oral vancomycin since that time with improvement in stool consistency. Prior to that, patient was hospitalized
for urinary tract infection.
Patient reports several days of weakness and fatigue. She denies sore throat, fevers / chills, cough / dyspnea, abdominal pain, N/V/D. She states that her urine has been dark appearing. No dysuria or flank pain.
Assessment/plan:
Sepsis
Suspected pneumonia
-Febrile episode overnight 10/27, resolved
� With persistent leukocytosis and clear evidence of consolidation versus mass on CT, switched ceftriaxone to Zosyn.
�Monitor leukocytosis---> improved
�Will need close imaging outpatient after antibiotic course--prescription for repeat CT scan in 4 weeks placed on the chart
Cardiogenic syncope
Rapid Response 10/28
#Syncopal Episode
#Second Degree Block
#Pauses
-Noted 12-second pause
-ECHO�EF 25 to 30%, stage III diastolic dysfunction
-Cards consulted
-Cont on Tele
11/03
� For pacemaker today
� Resume beta-guillermina as needed for cardiomyopathy
11/04
Status post pacemaker.
Resumed carvedilol
Troponin Elevation
-most likely non ischemic myocardial injury 2/2 to CKD along with pause
-Cards consulted
ASCVD (CAD, PAD)
Complicated by systolic CHF
Continue current CV med regimen including DAPT, statin, etc.
Follow I/Os, daily weights, etc.
Not on diuretic regimen
manage volume on HD.
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
Patient has tentative plans for eventual amputation.
No evidence of surrounding erythema, active infection, etc.
Wound care ordered
ESRD on HD
R IJ catheter in place. Has been on HD x 3 months per patient.
Benign Hypertension
Continue current med regimen (presently only on non-HD days).
Adjust dosing / timing as needed for adequate control.
DM-II
Stable. Resume Home dosing
Follow glucose and cover with SSI as needed.
Recent CDiff Colitis - no diarrhea currently
No current diarrhea. Completing tapering course of oral vancomycin.
Was on BID dosing per taper - increased back to QID for now for prophylaxis while on new abx.
Monitor for any recurrent diarrhea.
Continue contact precautions for now.
Acute on chronic anemia ' anemia of chronic disease of CKD'
Continue current iron supplementation.
No evidence of active bleeding.
Received 1 unit of blood transfusion with dialysis
Hyponatremia.
Continue to monitor
CODE STATUS: Full code
DVT prophylaxis: Heparin.
Diet: Diabetic
Family communication: Discussed with sister at bedside
Disposition: Discharged to rehab today
Total time spent on today's encounter was 55 minutes which included time spent in counseling the patient/family regarding diagnosis and treatment plan as listed above, goals of care, and symptom management. Case was discussed with nursing staff,
specialists, and care coordinators/case management. All labs and imaging personally reviewed by me. Remainder the time spent in detailed review of previous records, lab data, imaging, and other medical provider documentation.
Anticipated Discharge: Today
Subjective/Interval History
-
Date of Service: November 05, 2024
Patient seen and examined at bedside, denies any chest pain or shortness of breath, no abdominal pain, no nausea, no vomiting, no diarrhea or constipation.
Objective Data
-
Labs:
Laboratory Results
11/05/24
12:50
WBC 11.2 H
Hgb 7.3 L
Hct 23.7 L
Plt Count 470 H
Sodium Pending
Potassium Pending
Chloride Pending
Carbon Dioxide Pending
BUN Pending
Creatinine Pending
Glucose Pending
Calcium Pending
Vital Signs:
Vital Signs
Temp Pulse Resp BP Pulse Ox
97.9 F 85 16 135/56 99
11/05/24 11:10 11/05/24 11:10 11/05/24 11:10 11/05/24 11:10 11/05/24 11:10
I&O
11/04/24 11/05/24 11/06/24
06:59 06:59 06:59
Intake Total 300 / 300 1030 / 1030
Balance 300 / 300 1030 / 1030
Physical Exam
-
General: Well Developed, Well Nourished, No Apparent Distress and Comfortable
HEENT: Normocephalic, Atraumatic, Moist Mucous Membranes, No Ptosis, PERRLA and Nose Appears Normal
Respiratory: Clear to Auscultation, Non Labored Respirations and Chest Tubes (Pacemaker scar clean)
Cardiac: Regular Rhythm and S1/S2
Breast: Deferred by me
GI: Soft, Nontender, Nondistended and Normal Bowel Sounds
Genito-urinary: No Costovertebral Tender
Musculoskeletal: No Clubbing, No Cyanosis, No Edema and Other (Left second toe dry gangrene)
Skin: Warm
Neuro: Awake, Alert, Oriented, AO x 3 and No Motor Deficits
Psych: Calm
--- NOTE | 2024-11-05 13:27 | W.DCSUMMARY ---
Discharge Summary
Discharge Data
Date of Admission: 10/24/24
Date of Discharge: 11/05/24
Total time spent discharging patient (in min): 40
-
Pending Results: No
Hospital Course
Hospital course
Patient is a 59y F with PMH significant for ASCVD, ESRD on HD and recent CDiff infection who presents to ED complaining of generalized weakness and fatigue. Patient denies any other specific or focal complaints. She reports multiple prior
hospitalizations - most recently at [facility] about 2 weeks ago where she was diagnosed with CDiff colitis. She has been on tapering doses of oral vancomycin since that time with improvement in stool consistency. Prior to that, patient was hospitalized
for urinary tract infection.
Patient reports several days of weakness and fatigue. She denies sore throat, fevers / chills, cough / dyspnea, abdominal pain, N/V/D. She states that her urine has been dark appearing. No dysuria or flank pain.
Patient was treated for pneumonia but CT scan shows concern of underlying mass.
Patient received antibiotic initially in form of Rocephin and then Zosyn.
Leukocytosis improved.
[employer]OR called on October 28 for syncopal event, monitor shows second-degree AV block, cardiology consulted.
Echocardiogram shows EF 25 to 30%.
Plan was for pacemaker.
Patient status post pacemaker and overall improving.
Also during hospitalization hemoglobin dropped to 6.2 status post blood transfusion.
Patient seen by physical therapy and plan to be discharged back to [facility] after dialysis today.
During hospitalization patient was treated from the following
Sepsis
Suspected pneumonia
-Febrile episode overnight 10/27, resolved
� With persistent leukocytosis and clear evidence of consolidation versus mass on CT, switched ceftriaxone to Zosyn.
�Monitor leukocytosis---> improved
�Will need close imaging outpatient after antibiotic course--prescription for repeat CT scan in 4 weeks placed on the chart
Cardiogenic syncope
Rapid Response 10/28
#Syncopal Episode
#Second Degree Block
#Pauses
-Noted 12-second pause
-ECHO�EF 25 to 30%, stage III diastolic dysfunction
-Cards consulted
-Cont on Tele
11/03
� For pacemaker today
� Resume beta-guillermina as needed for cardiomyopathy
11/04
Status post pacemaker.
Resumed carvedilol
Troponin Elevation
-most likely non ischemic myocardial injury 2/2 to CKD along with pause
-Cards consulted
ASCVD (CAD, PAD)
Complicated by systolic CHF
Continue current CV med regimen including DAPT, statin, etc.
Follow I/Os, daily weights, etc.
Not on diuretic regimen
manage volume on HD.
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
Patient has tentative plans for eventual amputation.
No evidence of surrounding erythema, active infection, etc.
Wound care ordered
ESRD on HD
R IJ catheter in place. Has been on HD x 3 months per patient.
Benign Hypertension
Continue current med regimen (presently only on non-HD days).
Adjust dosing / timing as needed for adequate control.
DM-II
Stable. Resume Home dosing
Follow glucose and cover with SSI as needed.
Recent CDiff Colitis - no diarrhea currently
No current diarrhea. Completing tapering course of oral vancomycin.
Was on BID dosing per taper - increased back to QID for now for prophylaxis while on new abx.
Monitor for any recurrent diarrhea.
Continue contact precautions for now.
Acute on chronic anemia ' anemia of chronic disease of CKD'
Continue current iron supplementation.
No evidence of active bleeding.
Received 1 unit of blood transfusion with dialysis
Hyponatremia.
Continue to monitor
CODE STATUS: Full code
DVT prophylaxis: Heparin.
Diet: Diabetic
Family communication: Discussed with sister at bedside
Disposition: Discharged to rehab today
Total time spent on today's encounter was 40 minutes which included time spent in counseling the patient/family regarding diagnosis and treatment plan as listed above, goals of care, and symptom management. Case was discussed with nursing staff,
specialists, and care coordinators/case management. All labs and imaging personally reviewed by me. Remainder the time spent in detailed review of previous records, lab data, imaging, and other medical provider documentation.
Anticipated Discharge: Today
Discharge Plan
-
Patient Disposition: Alf/SNF
Discharge Diagnosis/Procedures: MICRA leadless pacemaker device implant 11/03/24
pneumonia
Anemia
Sinus pauses, secondary heart block status post pacemaker
Diet: Diabetic, Carb Controlled
Activity: With assistance and As tolerated
Blood Work: repeat CBC/BMP after one week.
Activity Restrictions/Additional Instructions:
Wound Care Instructions
Gangrene R toes and L 2nd toe, R plantar forefoot and R heel-swab with Betadine daily.
Dry gauze between R 3-4th toes, change daily and prn moisture.
Sacrum, R buttocks-clean with saline, silicone border foam, change q 3 days and prn loosened dressing.
air mattress
Turning schedule
Elevate heels off bed with pillow/s or your soft heel relief boots as tolerated.
Pressure redistributing chair cushion (i.e. Air chair cushion).
Follow up with your vascular surgeon.
Follow up with wound home care aide or at wound care center call for an appointment.
Stand Alone Forms: DC Instructions- Cath/EP Lab
Referrals:
Cristian Goodwin MD [Non-Admitting Privileges] - in one week
Simon Cota DO [Family Provider, Family Practice]
Angelica Galvez MD [Non-Admitting Privileges, Cardiology] - 12/02/24 1:00 pm
Referral Note: You have an appt to see your plane tableman, Dr. Galvez, on 12/02/24 at 1 PM. Please call [phone] if you need to reschedule.
Additional Discharge Medication Instructions: repeat CT chest after 4 weeks
Prescriptions:
New
carvedilol 3.125 mg Tablet
3.125 mg PO SuTuThSa@0800 Qty: 30 0RF
doxycycline hyclate 100 mg capsule
100 mg PO BID Qty: 10 0RF
(DME) CT Chest without IV contrast
See Rx Instructions .Route .MEDSUPPLY Qty: 1 0RF
Rx Instructions:
to be done after one week
Diagnosis : follow up pneumonia and concern of underline mass
please fax report to PCP
Continued
atorvastatin [Lipitor] 40 mg Tablet
40 mg PO HS
sennosides [senna] 8.6 mg Tablet
17.2 mg PO HSPRN PRN (Reason: constipation)
acetaminophen [Tylenol] 325 mg Tablet
650 mg PO Q6HPRN PRN (Reason: mild pain)
insulin glargine 100 unit/mL Solution
15 unit SC DAILY
insulin glargine 100 unit/mL Solution
10 unit SC HS
polyethylene glycol 3350 [Miralax] 17 gram Powder In Packet
17 g PO DAILYPRN PRN (Reason: constipation)
ondansetron HCl 4 mg Tablet
4 mg PO Q8HPRN PRN (Reason: nasuea)
isosorbide mononitrate 30 mg Tablet Extended Release 24 Hr
30 mg PO SUTUTHSA@0800
therapeutic multivitamin Tablet
1 tab PO DAILY
melatonin 3 mg Tablet
3 mg PO HSPRN PRN (Reason: sleep)
clopidogrel [Plavix] 75 mg Tablet
75 mg PO DAILY
aspirin 81 mg Tablet,Delayed Release (Dr/Ec)
81 mg PO DAILY
oxycodone-acetaminophen 5-325 mg Tablet
1 tab PO Q6HPRN PRN (Reason: moderate pains)
magnesium hydroxide [Milk of Magnesia] 400 mg/5 mL Suspension
2,400 mg PO HSPRN PRN (Reason: if no bm by 3rd day)
bisacodyl [Dulcolax (bisacodyl)] 10 mg Suppository
10 mg MO DAILYPRN PRN (Reason: if no bm aftr mom)
ferrous sulfate 325 mg (65 mg iron) Tablet
162.5 mg PO QPM
nitroglycerin [Nitrostat] 0.4 mg Tablet, Sublingual
0.4 mg SUBLINGUAL [id number] PRN (Reason: chest pains)
docusate sodium [Colace] 100 mg Capsule
100 mg PO BIDPRN PRN (Reason: constipation)
insulin lispro 100 unit/mL Insulin Pen
2 sliding scale dose SC AC
ezetimibe [Zetia] 10 mg Tablet
10 mg PO HS
Saccharomyces boulardii [Florastor] 250 mg Capsule
250 mg PO BID
vancomycin [Vancocin] 250 mg Capsule
250 mg PO DIRECTED Qty: 0 0RF
Rx Instructions:
take 250mg bid until 11/09/24 then daily until 11/23/24
Discontinued
carvedilol [Coreg] 12.5 mg Tablet
12.5 mg PO SUTUTHSA@0800
heparin (porcine) 5,000 unit/mL Solution
5,000 unit SC TID
Discharge Orders:
Discharge Patient (As Directed); Ordered 11/05/24
Ordered By: Riccardo Pacheco
Care Plan Goals
Care Plan Goals:
Problem: Readiness for enhanced knowledge related to diagnosis and treatment plan
Goal: Understand your diagnosis and treatment plan needs, including medications if applicable.
Instructions: Know your diagnosis, underlying causes and treatment plan options, including medications if applicable. Consult with your health care team to learn about your diagnosis and treatment plan, including medications if applicable.
Discharge Date and Time
Print Language: AZERI
[2024-11-05] MEDS: TYLENOL 650 MG PO (14:06)
--- NOTE | 2024-11-05 14:19 | W.PN.NEPH.HD ---
Assessment
-
Patient seen on dialysis
HD via catheter
Systolic blood pressure stable at 119 and current UF
Discharge after dialysis to [facility]
Progress Note - Hemodialysis
-
Date of Service: November 05, 2024
Duration: 30 minutes and 3 hours
Potassium Bath: 2
Calcium Bath: 2.5
Opti-Dialyzer: 160
Ultrafiltration: Other (2 kilogram)
Blood Flow: 400
Dialysate Flow: 600
Heparin: none
EPO: 10K
[2024-11-05 14:44] LABS: Blood Urea Nitrogen 30 mg/dl (7-17); Calcium 8.6 mg/dl (8.4-10.2); Carbon Dioxide 24 mmol/L (22-30); Chloride 94 mmol/L (98-107); Estimated Creatinine Clearance 13 ml/min; Glucose 167 mg/dl (70-99); Potassium 3.7 mmol/L (3.5-5.1); Sodium 128 mmol/L (135-145); eGFR 10.27
[2024-11-05 16:00] VITALS: BP 107/58
[2024-11-05] MEDS: HEPARIN 3600 UNITS INTRACATH (16:26)
== END 2024-11-05 18:51 | DRG 853 ==
LOC: 3 WEST ACU 21:34
PROVIDERS: Emergency Medicine; Internal Medicine; Internal Medicine Cardiovascular Disease; Registered Nurse; Specialist; ADMITTING PHYSICIAN Hospitalist; ATTENDING PHYSICIAN General Practice; CONSULT PHYSICIAN Internal Medicine Cardiovascular Disease; CONSULT PHYSICIAN Internal Medicine Nephrology; EMERGENCY PHYSICIAN Emergency Medicine; FAMILY PHYSICIAN Family Medicine
PROC: 5A1D70Z Performance of Urinary Filtration, Intermittent, Less than 6 Hours Per Day (ICD-10-PCS; 2024-10-27)
PROC: 02HK3NZ Insertion of Intracardiac Pacemaker into Right Ventricle, Percutaneous Approach (ICD-10-PCS; 2024-11-03)
PROC: 30243N1 Transfusion of Nonautologous Red Blood Cells into Central Vein, Percutaneous Approach (ICD-10-PCS; 2024-11-03)
DX: A41.9 Sepsis, unspecified organism (principal); Z00.6 Encounter for examination for normal comparison and control in clinical research program; J18.9 Pneumonia, unspecified organism; N18.6 End stage renal disease; E11.52 Type 2 diabetes mellitus with diabetic peripheral angiopathy with gangrene; I50.22 Chronic systolic (congestive) heart failure; N39.0 Urinary tract infection, site not specified; E87.1 Hypo-osmolality and hyponatremia; J44.0 Chronic obstructive pulmonary disease with (acute) lower respiratory infection; A04.72 Enterocolitis due to Clostridium difficile, not specified as recurrent; I5A Non-ischemic myocardial injury (non-traumatic); I47.20 Ventricular tachycardia, unspecified; I13.2 Hypertensive heart and chronic kidney disease with heart failure and with stage 5 chronic kidney disease, or end stage renal disease; L97.419 Non-pressure chronic ulcer of right heel and midfoot with unspecified severity; I70.261 Atherosclerosis of native arteries of extremities with gangrene, right leg; L97.519 Non-pressure chronic ulcer of other part of right foot with unspecified severity; I44.1 Atrioventricular block, second degree; I25.10 Atherosclerotic heart disease of native coronary artery without angina pectoris; E11.40 Type 2 diabetes mellitus with diabetic neuropathy, unspecified; E11.36 Type 2 diabetes mellitus with diabetic cataract; E11.319 Type 2 diabetes mellitus with unspecified diabetic retinopathy without macular edema; E11.22 Type 2 diabetes mellitus with diabetic chronic kidney disease; D63.1 Anemia in chronic kidney disease; E78.00 Pure hypercholesterolemia, unspecified; I25.5 Ischemic cardiomyopathy; L89.312 Pressure ulcer of right buttock, stage 2; I49.5 Sick sinus syndrome; R55 Syncope and collapse; Z99.2 Dependence on renal dialysis; Z95.1 Presence of aortocoronary bypass graft; Z95.810 Presence of automatic (implantable) cardiac defibrillator; Z89.422 Acquired absence of other left toe(s); Z86.19 Personal history of other infectious and parasitic diseases; Z87.891 Personal history of nicotine dependence; Z88.0 Allergy status to penicillin; Z79.82 Long term (current) use of aspirin; Z79.02 Long term (current) use of antithrombotics/antiplatelets; Z79.4 Long term (current) use of insulin; Z79.2 Long term (current) use of antibiotics; Z82.3 Family history of stroke
CPT/HCPCS: 33274; 51701; 71045; 71046; 71260; 80048; 80053; 80061; 81003; 81015; 82805; 82947; 82962; 83036; 83605; 83735; 84100; 84443; 84484; 85025; 85027; 86706; 86850; 86900; 86901; 86920; 87040; 87086; 87340; 87641; 93005; 93306; 96374; 97163; 97167; 97530; 97535; 99285; C1769; C1786; C1892; G0257; P9016; P9047; Q5106; Q9967

== ENCOUNTER 2024-11-29 13:12 | Inpatient (IN) | payer MEDICARE, OTHER, SELFPAY ==
[2024-11-29] VITALS (11 sets, daily range): BP systolic 85–118; BP diastolic 47–85; BMI 26.1; BMI 23.0
[2024-11-29 10:01] LABS: Hematocrit 25.3 % (37.0-47.0); Hemoglobin 7.4 g/dL (12.0-16.0); Mean Corp Hgb Conc. 29.2 g/dL (33.0-37.0); Mean Corpuscular Volume 95.5 fL (81.0-99.0); Nucleated Red Blood Cells % 0 %; Platelet Count 389 10^3/uL (130-400); Red Cell Dist. Width 17.8 % (11.5-14.5)
[2024-11-29 10:17] LABS: ALT (SGPT) 18 U/L (0-35); AST (SGOT) 23 U/L (14-36); Albumin 3.4 g/dl (3.5-5.0); Alkaline Phosphatase 92 U/L (38-126); Blood Urea Nitrogen 22 mg/dl (7-17); Calcium 8.9 mg/dl (8.4-10.2); Carbon Dioxide 28 mmol/L (22-30); Chloride 100 mmol/L (98-107); Estimated Creatinine Clearance 23 ml/min; Glucose 113 mg/dl (70-99); Potassium 4.3 mmol/L (3.5-5.1); Sodium 140 mmol/L (135-145); Total Protein 6.9 g/dl (6.3-8.2); eGFR 20.36
[2024-11-29 10:18] LABS: COVID-19 Antigen Negative (Negative)
--- NOTE | 2024-11-29 10:22 | ED.GENMED ---
History of Present Illness
<Marilyn Burch, TIMING MACHINE OPERATOR - Last Filed: 11/29/24 17:48>
General
Chief Complaint: Weakness
Source: patient and family
Exam Limitations: none
Time Seen by Provider: 11/29/24 09:57
Nursing documentation reviewed up to this point in time: agreed with
History of Present Illness
History of Present Illness:
59-year-old female from [facility] with history of COPD, CHF, CAD, HTN, HLD, pacemaker, neuropathy, ESRD on HD, IDDM, CABG x 4, PTCA with stent x 3, defibrillator, on Plavix and aspirin presents with brother and sister at bedside. Pt states she
doesn't feel good but not specific, denies CP, Abd pain, headache. Brother and sister state the facility staff reported her having trouble breathing. The say her mental state is definitely worse, sister saw her several days ago and she was
conversive, oriented to year and date. Brother saw her yesterday and felt she was not well and today she is 'much worse.' She is tremulous, can't get comfortable, anxious,
Last dialysis yesterday. Sister Pt has chronic diarrhea and had C-diff in recent past
Past History
<Marilyn Burch, TIMING MACHINE OPERATOR - Last Filed: 11/29/24 17:48>
Past History
ED Past Medical History: CHF, Hypercholesterolemia, IDDM, Renal failure (on dialysis) and Other (ASCVD, Anemia, )
ED Past Surgical History: Cardiac (defibrillator, quadruple bypass)
Social History
Personal: Single
Living: snf
Employment: Employed
Review of Systems
<Marilyn Burch, TIMING MACHINE OPERATOR - Last Filed: 11/29/24 17:48>
Review of Systems
Allergies reviewed?: Yes
Other source history: family
All Other Systems: ROS reviewed and negative except as documented in HPI and ROS
Phy Exam
<Marilyn Burch, TIMING MACHINE OPERATOR - Last Filed: 11/29/24 17:48>
Physical Exam
Physical Exam:
GENERAL: No acute distress. A&O to name, year, month, cannot say where she is.
CONSTITUTIONAL: Afebrile.
EYES: clear, conjunctivae mildly icteric
ENMT: dry mucus membranes
RESPIRATORY: Regular respirations, mildly labored, lungs diminished. Rales RLL. Pulse ox 96% on 3L [place]
CARDIOVASCULAR: Regular rate and rhythm, no murmurs, no rubs.
GI: Soft, nontender, normal BS, Incontinent of soft brown stool
MUSCULOSKELETAL: No edema.
SKIN: Warm, dry, sallow. Dry gangrene right 2nd toe, Sacrum reddened, no open areas.
PSYCH: Anxious, restless mood and affect. Well kept, interactive, appropriate
NEUROLOGIC: Awake, alert and oriented to year and month. No focal neurological deficits
Course
[place]elt;Marilyn Burch, TIMING MACHINE OPERATOR - Last Filed: 11/29/24 17:48>
Orders/Labs/Results
Orders:
Orders
11/29/24 09:35
Electrocardiogram (*1) Urgent
Reason for Study: Bradycardia / Tachycardia
11/29/24 09:36
EKG- Treatment ONCE
11/29/24 09:40
CMP [Comprehensive Metabolic Panel] Urgent
COVID-19 Antigen Urgent
Source: Nasal Swab
Complete Blood Count/With Diff Urgent
Lactic Acid Urgent
Blood Culture Urgent
JERROD Source: Blood/Venous
Specimen Description:
Influenza A+B Rapid Molecular Urgent
JERROD Source: Nasal Swab
Specimen Description:
11/29/24 10:31
0.9% Sodium Chloride 500 ml [Nss] 500 ml IV BOLUS
11/29/24 10:47
Cefepime HCl [Maxipime] 2,000 mg IV NOW STA
11/29/24 10:56
CT Chest/abd/pel W Iv Cont Urgent
Comment:
Reason For Exam: SOB, hypoxia, SIRS with pudding colored urine
11/29/24 10:59
Ammonia Urgent
Urinalysis Reflex To Culture Urgent
Date Specimen was Collected: 11/29/24
Time Specimen was Collected: 10:57
Urine Microscopic Reflex Cult Urgent
Urine Culture Urgent
JERROD Source: U
Specimen Description:
Date Specimen was Collected: 11/29/24
Time Specimen was Collected: 10:57
11/29/24 11:12
Sterile Water [Sterile Water For Injection] 10 ml .ROUTE .STK-MED ONE
11/29/24 11:27
Lorazepam [Ativan] 1 mg PO NOW STA
11/29/24 12:46
Admit/Transfer Patient As Directed
Co-Sign Provider:
Level of Care: Inpatient admission
Assign to:: IMU- Intermediate Care
Physician / Group: [facility]
Diagnosis: sepsis/multifocal pna/encedphalopathy, plueral eff
Reason for Hospitalization: sepsis/multifocal pna/encedphalopathy, plueral eff
Expected length of stay greater than two midnights?: Yes
ELOS- Estimated Length of Stay in days: 5
I certify the patient meets the requirements for IP care: Yes
Code Status As Directed
Resuscitation Status: Full Code
11/29/24 12:48
PRN Pain Medication Management As Directed
May give lesser potent ordered pain med per pt: Yes
preference::
Protocol:: Medication orders for pain may be administered in a
manner that supports deferring to patient preference
when the pt is:
- Requesting an ordered lesser potent pain medication.
Least to most potent pain medications are defined
as: acetaminophen < NSAID < tramadol < opioids
(morphine, oxycodone, hydromorphone).
- Requesting a lesser dose of the same medication IF
ORDERED.
- Requesting a less intrusive route of administration
if both routes are prescribed by the provider (PO <
IV).
11/29/24 12:57
IRAD CONSULT Routine
Consulting Provider: French Wright
Was physician already notified: Yes
Procedure being ordered, including laterality if applicable: left mor pleueral eff need thoracentesis
Acknowledgement that appropriate orders are entered: Yes
11/29/24 12:58
NEPHROLOGY CONSULT Routine
Consulting Provider: Maykel Lakhani V.
Was physician already notified: Yes
Reason for consult: esrd on hd
11/29/24 13:12
diazePAM [Valium Injection] 2 mg IV NOW STA
11/29/24 Dinner
Cholesterol Lowering
At Your Request: Limited, Machinist 2Nd Shift Required
Cholesterol Lowering: Sodium, 2 Gram
1800 damian/15 CHO Diabetic
11/29/24 15:39
Acetaminophen [Tylenol] 650 mg PO Q4HPRN PRN
Dextrose 50%-Water [Dextrose 50% Syringe] 12.5 grams IV [id number] PRN
Glucagon [GlucaGen] 1 mg IM PRN PRN
Ondansetron HCl [Zofran] 4 mg PO Q8HPRN PRN nasuea
11/29/24 15:39
Add On- LAB Routine
Tests Added?: Body Fluid Triglycerides
Acid Fast Culture & Smear Routine
JERROD Source: Pleural Fluid
Specimen Description:
Comment: post procedure
Body Fluid Amylase Routine
Fluid Source: Pleural
Body Fluid Cell Count Routine
What is the Body Fluid: pleural fluid
Comment: post procedure
Body Fluid Glucose Routine
Fluid Source: Pleural
Body Fluid LDH Routine
Fluid Source: Pleural
Body Fluid Protein Routine
Fluid Source: Pleural
Body Fluid Triglycerides Routine
Fluid Source: Pleural
Body Fluid pH Routine
Fluid Source: Pleural
Fluid Culture with Gram Stain Routine
JERROD Source: Pleural Fluid
Specimen Description:
Comment: post procedure
Fungus Culture Routine
JERROD Source: Pleural Fluid
Specimen Description:
Fungus Smear Routine
JERROD Source: Pleural Fluid
Specimen Description:
Gram Stain Routine
JERROD Source: Pleural Fluid
Specimen Description:
Comment: POST PROCEDURE
Activity As Directed
Activity Level: With Assistance
Bedside Glucose Monitoring As Directed
Frequency: AC&HS
Additional Instructions:: Change to q6h if pt on TPN, tube feeding or not eating
Intake/ Output As Directed
Frequency: Per unit guidelines
Vital Signs As Directed
Frequency: Per unit guidelines
Weight As Directed
Frequency: Daily
IRAD Cytology Routine
Source: Pleural Fluid, Left
Clinical Impression: chf vs malignancy
O2 Therapy [RESP] Routine
Nasal Cannula Liter Flow: 2 LPM
Titrate/Wean O2 to maintain O2 sat greater than (%): 92
Pulse Ox/spot Check [RESP] Routine
Quantity: 1
Pt Eval And Treat Routine
Activity Level: With Assistance
DX Deep Vein Thrombosis Video Routine
11/29/24 16:51
HydrOXYZINE [Atarax] 50 mg PO QIDPRN PRN
11/29/24 17:03
Oxycodone/Acetaminophen [Percocet 5/325] 1 tablet PO Q6HPRN PRN
11/29/24 17:23
Glucose Routine
Hematocrit Routine
LDH Routine
Comment: post procedure, add on to morning labs if already drawn
Total Protein Routine
Comment: post procedure, add on to morning labs if already drawn
11/29/24 18:00
Ferrous Sulfate [Feosol] 325 mg PO QPM
11/29/24 20:00
Heparin 5,000 units SC Q12
Saccharomyces Boulardii [Florastor] 250 mg PO BID
11/29/24 22:00
Atorvastatin [Lipitor] 40 mg PO HS
Ezetimibe [Zetia] 10 mg PO HS
Insulin Aspart Corrective Mod [Novolog Flexpen-Moderate Resistance] See Dose Instructions SC ACHS
11/29/24 23:00
Cefepime HCl [Maxipime] 1,000 mg IV Q12H
11/30/24 06:00
Complete Blood Count/With Diff IN AM
Comprehensive Metabolic Panel IN AM
Glycohemoglobin (HgbA1c) IN AM
11/30/24 08:00
Aspirin Low Dose EC [Aspir Low (Enteric Coated)] 81 mg PO DAILY
Clopidogrel Bisulfate [Plavix] 75 mg PO DAILY
Multivitamin [Theragran] 1 tablet PO DAILY
12/01/24 06:00
Complete Blood Count/With Diff IN AM
Comprehensive Metabolic Panel IN AM
12/02/24 06:00
Complete Blood Count/With Diff IN AM
Comprehensive Metabolic Panel IN AM
12/03/24 06:00
Complete Blood Count/With Diff IN AM
Comprehensive Metabolic Panel IN AM
12/04/24 06:00
Complete Blood Count/With Diff IN AM
Comprehensive Metabolic Panel IN AM
Abnormal Lab Results
11/29/24 11/29/24
09:40 10:59
WBC 21.1 H 10^3/uL
(4.8-10.8)
RBC 2.65 L 10^6/uL
(4.20-5.40)
Hgb 7.4 L g/dL
(12.0-16.0)
Hct 25.3 L %
(37.0-47.0)
MCHC 29.2 L g/dL
(33.0-37.0)
RDW 17.8 H %
(11.5-14.5)
Abs Immat Gran (auto) 0.1 H 10^3/uL
(0-0.05)
Absolute Neuts (auto) 19.6 H 10^3/uL
(1.4-6.5)
Absolute Lymphs (auto) 0.5 L 10^3/uL
(1.2-3.4)
Absolute Monos (auto) 0.8 H 10^3/uL
(0.1-0.6)
Neutrophils % 92.9 H %
(42.2-75.2)
Lymphocytes % 2.5 L %
(20.5-51.1)
BUN 22 H mg/dl
(7-17)
Creatinine 2.6 H mg/dL
(0.6-1.0)
Glucose 113 H mg/dl
(70-99)
Lactic Acid 2.7 H mmol/L
(0.7-2.0)
Ammonia < 9 L umol/L
(9-30)
Albumin 3.4 L g/dl
(3.5-5.0)
Urine Ketones 1+ A
(Negative)
Ur Occult Blood Reflex 4+ A
(Negative)
Urine Bilirubin 1+ A
(Negative)
Leukocyte Esterase Rfl 2+ A
(Negative)
Urine WBC (Reflex) >100 A /HPF
(0-5)
Urine Albumin (Reflex) 3+ A
(Neg - Trace)
11/29/24 09:40
11/29/24 09:40
Vital Signs
Initial and Last Documented VS:
Initial Vital Signs
Temp Pulse BP
98.7 F 109 117/60
11/29/24 09:20 11/29/24 09:20 11/29/24 09:20
Last Documented Vital Signs
Temp Pulse Resp BP Pulse Ox
97.7 F 89 18 96/65 94
11/29/24 15:45 11/29/24 17:00 11/29/24 17:00 11/29/24 15:00 11/29/24 16:00
Negative Turner Apprentice consulted with Physician
Negative Turner Apprentice consulted with physician?: Yes
Name of Physician Consulted: Max
<Driss Santana MD - Last Filed: 11/29/24 11:05>
Orders/Labs/Results
Orders:
Orders
11/29/24 09:35
Electrocardiogram (*1) Urgent
Reason for Study: Bradycardia / Tachycardia
11/29/24 09:36
EKG- Treatment ONCE
11/29/24 09:40
CMP [Comprehensive Metabolic Panel] Urgent
COVID-19 Antigen Urgent
Source: Nasal Swab
Complete Blood Count/With Diff Urgent
Lactic Acid Urgent
Blood Culture Urgent
JERROD Source: Blood/Venous
Specimen Description:
Influenza A+B Rapid Molecular Urgent
JERROD Source: Nasal Swab
Specimen Description:
11/29/24 10:31
0.9% Sodium Chloride 500 ml [Nss] 500 ml IV BOLUS
11/29/24 10:47
Cefepime HCl [Maxipime] 2,000 mg IV NOW STA
11/29/24 10:56
CT Chest/abd/pel W Iv Cont Urgent
Comment:
Reason For Exam: SOB, hypoxia, SIRS with pudding colored urine
11/29/24 10:59
Ammonia Urgent
Urinalysis Reflex To Culture Urgent
Date Specimen was Collected: 11/29/24
Time Specimen was Collected: 10:57
Urine Microscopic Reflex Cult Urgent
Urine Culture Urgent
JERROD Source: U
Specimen Description:
Date Specimen was Collected: 11/29/24
Time Specimen was Collected: 10:57
11/29/24 11:12
Sterile Water [Sterile Water For Injection] 10 ml .ROUTE .STK-MED ONE
11/29/24 11:27
Lorazepam [Ativan] 1 mg PO NOW STA
11/29/24 12:46
Admit/Transfer Patient As Directed
Co-Sign Provider:
Level of Care: Inpatient admission
Assign to:: IMU- Intermediate Care
Physician / Group: [facility]
Diagnosis: sepsis/multifocal pna/encedphalopathy, plueral eff
Reason for Hospitalization: sepsis/multifocal pna/encedphalopathy, plueral eff
Expected length of stay greater than two midnights?: Yes
ELOS- Estimated Length of Stay in days: 5
I certify the patient meets the requirements for IP care: Yes
Code Status As Directed
Resuscitation Status: Full Code
11/29/24 12:48
PRN Pain Medication Management As Directed
May give lesser potent ordered pain med per pt: Yes
preference::
Protocol:: Medication orders for pain may be administered in a
manner that supports deferring to patient preference
when the pt is:
- Requesting an ordered lesser potent pain medication.
Least to most potent pain medications are defined
as: acetaminophen < NSAID < tramadol < opioids
(morphine, oxycodone, hydromorphone).
- Requesting a lesser dose of the same medication IF
ORDERED.
- Requesting a less intrusive route of administration
if both routes are prescribed by the provider (PO <
IV).
11/29/24 12:57
IRAD CONSULT Routine
Consulting Provider: French Wright
Was physician already notified: Yes
Procedure being ordered, including laterality if applicable: left mor pleueral eff need thoracentesis
Acknowledgement that appropriate orders are entered: Yes
11/29/24 12:58
NEPHROLOGY CONSULT Routine
Consulting Provider: Maykel Lakhani V.
Was physician already notified: Yes
Reason for consult: esrd on hd
11/29/24 13:12
diazePAM [Valium Injection] 2 mg IV NOW STA
11/29/24 Dinner
Cholesterol Lowering
At Your Request: Limited, Machinist 2Nd Shift Required
Cholesterol Lowering: Sodium, 2 Gram
1800 damian/15 CHO Diabetic
11/29/24 15:39
Acetaminophen [Tylenol] 650 mg PO Q4HPRN PRN
Dextrose 50%-Water [Dextrose 50% Syringe] 12.5 grams IV [id number] PRN
Glucagon [GlucaGen] 1 mg IM PRN PRN
Ondansetron HCl [Zofran] 4 mg PO Q8HPRN PRN nasuea
11/29/24 15:39
Add On- LAB Routine
Tests Added?: Body Fluid Triglycerides
Acid Fast Culture & Smear Routine
JERROD Source: Pleural Fluid
Specimen Description:
Comment: post procedure
Body Fluid Amylase Routine
Fluid Source: Pleural
Body Fluid Cell Count Routine
What is the Body Fluid: pleural fluid
Comment: post procedure
Body Fluid Glucose Routine
Fluid Source: Pleural
Body Fluid LDH Routine
Fluid Source: Pleural
Body Fluid Protein Routine
Fluid Source: Pleural
Body Fluid Triglycerides Routine
Fluid Source: Pleural
Body Fluid pH Routine
Fluid Source: Pleural
Fluid Culture with Gram Stain Routine
JERROD Source: Pleural Fluid
Specimen Description:
Comment: post procedure
Fungus Culture Routine
JERROD Source: Pleural Fluid
Specimen Description:
Fungus Smear Routine
JERROD Source: Pleural Fluid
Specimen Description:
Gram Stain Routine
JERROD Source: Pleural Fluid
Specimen Description:
Comment: POST PROCEDURE
Activity As Directed
Activity Level: With Assistance
Bedside Glucose Monitoring As Directed
Frequency: AC&HS
Additional Instructions:: Change to q6h if pt on TPN, tube feeding or not eating
Intake/ Output As Directed
Frequency: Per unit guidelines
Vital Signs As Directed
Frequency: Per unit guidelines
Weight As Directed
Frequency: Daily
IRAD Cytology Routine
Source: Pleural Fluid, Left
Clinical Impression: chf vs malignancy
O2 Therapy [RESP] Routine
Nasal Cannula Liter Flow: 2 LPM
Titrate/Wean O2 to maintain O2 sat greater than (%): 92
Pulse Ox/spot Check [RESP] Routine
Quantity: 1
Pt Eval And Treat Routine
Activity Level: With Assistance
DX Deep Vein Thrombosis Video Routine
11/29/24 16:51
HydrOXYZINE [Atarax] 50 mg PO QIDPRN PRN
11/29/24 17:03
Oxycodone/Acetaminophen [Percocet 5/325] 1 tablet PO Q6HPRN PRN
11/29/24 17:23
Glucose Routine
Hematocrit Routine
LDH Routine
Comment: post procedure, add on to morning labs if already drawn
Total Protein Routine
Comment: post procedure, add on to morning labs if already drawn
11/29/24 18:00
Ferrous Sulfate [Feosol] 325 mg PO QPM
11/29/24 20:00
Heparin 5,000 units SC Q12
Saccharomyces Boulardii [Florastor] 250 mg PO BID
11/29/24 22:00
Atorvastatin [Lipitor] 40 mg PO HS
Ezetimibe [Zetia] 10 mg PO HS
Insulin Aspart Corrective Mod [Novolog Flexpen-Moderate Resistance] See Dose Instructions SC ACHS
11/29/24 23:00
Cefepime HCl [Maxipime] 1,000 mg IV Q12H
11/30/24 06:00
Complete Blood Count/With Diff IN AM
Comprehensive Metabolic Panel IN AM
Glycohemoglobin (HgbA1c) IN AM
11/30/24 08:00
Aspirin Low Dose EC [Aspir Low (Enteric Coated)] 81 mg PO DAILY
Clopidogrel Bisulfate [Plavix] 75 mg PO DAILY
Multivitamin [Theragran] 1 tablet PO DAILY
12/01/24 06:00
Complete Blood Count/With Diff IN AM
Comprehensive Metabolic Panel IN AM
12/02/24 06:00
Complete Blood Count/With Diff IN AM
Comprehensive Metabolic Panel IN AM
12/03/24 06:00
Complete Blood Count/With Diff IN AM
Comprehensive Metabolic Panel IN AM
12/04/24 06:00
Complete Blood Count/With Diff IN AM
Comprehensive Metabolic Panel IN AM
Abnormal Lab Results
11/29/24 11/29/24
09:40 10:59
WBC 21.1 H 10^3/uL
(4.8-10.8)
RBC 2.65 L 10^6/uL
(4.20-5.40)
Hgb 7.4 L g/dL
(12.0-16.0)
Hct 25.3 L %
(37.0-47.0)
MCHC 29.2 L g/dL
(33.0-37.0)
RDW 17.8 H %
(11.5-14.5)
Abs Immat Gran (auto) 0.1 H 10^3/uL
(0-0.05)
Absolute Neuts (auto) 19.6 H 10^3/uL
(1.4-6.5)
Absolute Lymphs (auto) 0.5 L 10^3/uL
(1.2-3.4)
Absolute Monos (auto) 0.8 H 10^3/uL
(0.1-0.6)
Neutrophils % 92.9 H %
(42.2-75.2)
Lymphocytes % 2.5 L %
(20.5-51.1)
BUN 22 H mg/dl
(7-17)
Creatinine 2.6 H mg/dL
(0.6-1.0)
Glucose 113 H mg/dl
(70-99)
Lactic Acid 2.7 H mmol/L
(0.7-2.0)
Ammonia < 9 L umol/L
(9-30)
Albumin 3.4 L g/dl
(3.5-5.0)
Urine Ketones 1+ A
(Negative)
Ur Occult Blood Reflex 4+ A
(Negative)
Urine Bilirubin 1+ A
(Negative)
Leukocyte Esterase Rfl 2+ A
(Negative)
Urine WBC (Reflex) >100 A /HPF
(0-5)
Urine Albumin (Reflex) 3+ A
(Neg - Trace)
11/29/24 09:40
11/29/24 09:40
Vital Signs
Initial and Last Documented VS:
Initial Vital Signs
Temp Pulse BP
98.7 F 109 117/60
11/29/24 09:20 11/29/24 09:20 11/29/24 09:20
Last Documented Vital Signs
Temp Pulse Resp BP Pulse Ox
97.7 F 89 18 96/65 94
11/29/24 15:45 11/29/24 17:00 11/29/24 17:00 11/29/24 15:00 11/29/24 16:00
<Marilyn Burch, TIMING MACHINE OPERATOR - Last Filed: 11/29/24 17:48>
MDM/Problems Addressed
Differential Diagnosis Includes:
UTI, fistula
PNA, COPD exacerbation
MDM/Problems Addressed:
59-year-old female from [place] [facility] with history of COPD, CHF, CAD, HTN, HLD, pacemaker, neuropathy, ESRD on HD, IDDM, CABG x 4, PTCA with stent x 3, defibrillator, on Plavix and aspirin presents with brother and sister at bedside. Pt states she
doesn't feel good but not specific, denies CP, Abd pain, headache. Brother and sister state the facility staff reported her having trouble breathing. The say her mental state is definitely worse, sister saw her several days ago and she was
conversive, oriented to year and date. Brother saw her yesterday and felt she was not well and today she is 'much worse.' She is tremulous, can't get comfortable, anxious,
Last dialysis yesterday. Sister Pt has chronic diarrhea and had C-diff in recent past
EKG: Sinus tachycardia at rate 114
CBC: WBC 21.1, Hgb at baseline 7.4
CMP: BUN/creat 22/2.6, Glucose 113
Lactic 2.7 COVID-negative
Gentle IV fluids due to her ESRD, no septic protocol fluids
Straight cathed for this light brown pudding colored urine (fistula?)
patient had CT chest with IV contrast on 10/28/2024 showing moderate consolidation left lobe likely pneumonia, underlying mass cannot be excluded and it was recommended that a repeat CT be done. Treated for PNA.
In 'a couple of weeks' following treatment. For this reason and the fact that she is more short of breath, we will get the chest CT today.
Case discussed with Dr. Santana who examined pt.
12:00 PM: Patient back from CAT scan.
Reviewed CT scan with Dr. Santana: Left pleural effusion, right lower lobe pneumonia
Antibiotics started
Hospitalist notified of admission
<Marilyn Burch TIMING MACHINE OPERATOR - Last Filed: 11/29/24 17:48>
*Pulse Oximetry
SaO2: 96
Nasal Cannula flow liters per minute: 2
Patient hypoxic: no
*EKG
EKG Intrepretation Date: 11/29/24
Heart Rate: 114
Rate: tachycardiac
Rhythm: sinus
[place]: normal axis
Interval: normal interval
QRS Pattern: wide non-specific
Ischemia: no ischemia
*Critical Care Note
Total Time (30-74mins, 75-104mins- exclusive of procedures): Not Applicable
ED Attending Note
<Marilyn Burch NP - Last Filed: 11/29/24 17:48>
-
Portions of this chart may have been created with voice recognition software.� Occasional wrong word or��sound alike� substitutions may have occurred due to the inherent limitations of voice recognition software.
<Driss Santana MD - Last Filed: 11/29/24 11:05>
ED Attending Note
Patient seen and examined by attending physician: Yes
ED Attending Note:
I have seen and evaluated the patient with a [id number] encounter. I have spoken to the advance practicer provider and involved in the medical history, the physical exam, medical decision making.
Evaluation and management service: agree unless noted differently below.
Results interpretation: agree unless noted differently below.
Focused HPI: 59-year-old female with medical history of hypertension and hyperlipidemia, CHF, CAD, COPD, chronic respiratory failure, ESRD on dialysis, insulin-dependent diabetes; she presents from [facility] via EMS she is
accompanied by her family and she presents for evaluation of shortness of breath and weakness/mental status changes. It sounds like symptoms have been developing over the past few days. Sister says that she has been on 4 L of oxygen which is
chronic for her no acute change. She was admitted in late October for weakness and fatigue ultimately treated for pneumonia. She did have dialysis yesterday, currently on Sunday/Sunday/Sunday schedule.
Physical exam: Tachycardic, tachypneic; she is saturating appropriately on 4 L nasal cannula. She is afebrile and normotensive. She has diminished breath sounds at the lung bases and seems to have rales in the right mid to lower lung. Right chest
wall dialysis catheter noted.
Medical Decision Makin-year-old female presents with weakness, confusion and shortness of breath over the past few days. Recent admission for pneumonia with similar. She is tachycardic and tachypneic but otherwise normal vitals. Physical
exam as noted. She had a leukocytosis to 21 on CBC with predominant neutrophils. Chemistry shows findings consistent with ESRD but electrolytes are acceptable. Her lactate is slightly elevated 2.7. Urinalysis is very cloudy�sent for culture.
COVID and flu swabs negative. Check CT chest/abdomen/pelvis. Covered broad-spectrum antibiotics with concern for sepsis. Gentle fluids given ESRD�would not give 30 cc/kg for this reason. Plan for admission pending imaging.
Discharge Plan
Departure
Patient Disposition: Admit
Date of Disposition: 11/29/24
Time of Disposition: 12:04
Admit to: Med/Surg
Presentation/result/management discussed w/ accepting MD/DO: Hospitalist
Condition: Serious
Discharge Problem:
Pleural effusion on left, Pneumonia involving right lung
Interventions
Interventions:
*Risk Screen - Suicide Last Done: 11/29/24 09:20
*General Assessment Last Done: 11/29/24 09:20
*Neglect/Abuse Screening Last Done: 11/29/24 09:20
*ED- Fall Risk Assessment Last Done: 11/29/24 10:17
*ED COVID-19 Vaccine History Last Done: 11/29/24 15:44
*ED Influenza Vaccine History Last Done: 11/29/24 10:17
*Nursing Disposition Last Done: 11/29/24 15:45
ED- Cardiac Assessment Last Done: 11/29/24 10:17
ED- Neurological Assessment Last Done: 11/29/24 10:17
ED- Pulmonary Assessment Last Done: 11/29/24 10:17
Discharge Date and Time
Discharge Date/Time: 11/29/24 15:35
[2024-11-29] MEDS: NSS 500 IV (10:58)
[2024-11-29] MEDS: MAXIPIME 2000 MG IV (11:08)
[2024-11-29 11:27] LABS: Ammonia < 9 umol/L (9-30)
[2024-11-29 11:34] LABS: Urine Character Very Cloudy (Clear)
[2024-11-29] MEDS: ATIVAN 1 MG PO (12:07)
[2024-11-29 12:08] LABS: Urine Squamous Cell SEEN /LPF (Few); Urine White Cell >100 /HPF (0-5)
--- NOTE | 2024-11-29 12:25 | HPS.HSE ---
Family Physician
-
Family Physician: Sina Hernandez MD
Chief Complaint
-
Shortness of breath, confusion, fatigue
History of Present Illness
59-year-old female from [facility] with reported difficulty breathing. Family brother and sister had stated to ER felt that she was not is oriented was anxious unable to get comfortable. To name, brother and sister is slightly
confused tends to ramble off topic. Complains of fatigue and shortness of breath she denies headache, fever, chills, sore throat, chest pain, palpitations, abdominal pain, nausea, vomiting, diarrhea, urinary symptoms. Her sister states she had
diarrhea last week but no current diarrhea. She is restless asking to be repositioned multiple times during examination.
She had a recent admission 10/24 - 11/05/2024 treated for sepsis suspected pneumonia with persistent leukocytosis CT was concerning for possible underlying mass patient was treated with IV Zosyn with recommendations of repeat CT in 4 weeks patient had
cardiogenic syncope syncopal episode echo revealed cardiomyopathy reduced EF 25-30% stage III diastolic dysfunction she had pacemaker placed on 11/03/2024. Patient also history of dry gangrene right second toe with eventual plans for amputation.
Patient with recent C. difficile colitis October 2024 completed course of oral vancomycin. Patient past medical history cardiomyopathy EF 25-30%, status post permanent pacemaker 11/03/2024, chronic stage III systolic heart failure, pleural
effusions status post thoracentesis years ago [facility], ESRD on HD, chronic anemia, DM2, CAD/CABG x 4, PTCA with cardiac stents x 3/PAD/dry gangrene right second toe, HTN, HLD, COPD, neuropathy
Medical History
Past Medical History
Past Medical History: Reports Other
Additional Past Medical History:
cardiomyopathy EF 25-30% new October 2024
status post permanent pacemaker 11/03/2024
chronic stage III systolic heart failure
pleural effusions status post thoracentesis years ago [facility], ESRD on H
, chronic anemia
DM2
CAD/CABG x 4, PTCA with cardiac stents x 3
PAD/dry gangrene right second toe
HTN
HLD
COPD
Former smoker quit 10 years ago
neuropathy
Past Surgical History: Reports Other
Additional Past Surgical History:
x 3
PTCA with Stent (x 3)
CABG x 4
L 5th Toe Amputation
R IJ HD Catheter
Defibrillator (SICD)
Social History
Tobacco: Former Smoker (Quit 10 years ago)
Alcohol: None
Drug: None
Personal: Single
Living: Halfway
Family History
Family History: Not pertinent
Allergies / Home Medications
Allergies reflects when Allergies were last updated in [facility].
Home Medications with original date entered in [facility]
Allergy/Medication List:
Allergies
Allergy/AdvReac Type Severity Reaction Status Date / Time
Penicillins Allergy Unknown Verified 03/23/16 15:18
Home Medications
Saccharomyces boulardii 250 mg capsule (Florastor) 250 mg PO BID Supplement 10/24/24
acetaminophen 325 mg tablet (Tylenol) 650 mg PO Q6HPRN PRN mild pain 10/24/24
aspirin 81 mg tablet,delayed release 81 mg PO DAILY Blood Clot Prevention/Tx 10/24/24
atorvastatin 40 mg tablet (Lipitor) 40 mg PO HS High Cholesterol 10/24/24
bisacodyl 10 mg rectal suppository (Dulcolax (bisacodyl)) 10 mg NV DAILYPRN PRN if no bm aftr mom 10/24/24
clopidogrel 75 mg tablet (Plavix) 75 mg PO DAILY Blood Clot Prevention/Tx 10/24/24
docusate sodium 100 mg capsule (Colace) 100 mg PO BIDPRN PRN constipation 10/24/24
ezetimibe 10 mg tablet (Zetia) 10 mg PO HS High Cholesterol 10/24/24
ferrous sulfate 325 mg (65 mg iron) tablet 162.5 mg PO QPM Supplement 10/24/24
insulin glargine 100 unit/mL subcutaneous solution 10 unit SC HS Diabetes 10/24/24
insulin glargine 100 unit/mL subcutaneous solution 15 unit SC DAILY Diabetes 10/24/24
insulin lispro 100 unit/mL subcutaneous pen 2 sliding scale dose SC ACHS Diabetes 10/24/24
isosorbide mononitrate 30 mg tablet,extended release 24 hr 30 mg PO SUTUTHSA@0800 Blood Pressure 10/24/24
magnesium hydroxide 400 mg/5 mL oral suspension (Milk of Magnesia) 2,400 mg PO HSPRN PRN if no bm by 3rd day 10/24/24
melatonin 3 mg tablet 3 mg PO HS Sleep 10/24/24
nitroglycerin 0.4 mg sublingual tablet (Nitrostat) 0.4 mg sublingual [id number] PRN chest pains 10/24/24
ondansetron HCl 4 mg tablet 4 mg PO Q8HPRN PRN nasuea 10/24/24
polyethylene glycol 3350 17 gram oral powder packet (Miralax) 17 g PO DAILYPRN PRN constipation 10/24/24
sennosides 8.6 mg tablet (senna) 17.2 mg PO HSPRN PRN constipation 10/24/24
therapeutic multivitamin 1 tab PO DAILY Supplement 10/24/24
carvedilol 3.125 mg tablet 3.125 mg PO SuTuThSa@0800 Blood Pressure 11/29/24
hydroxyzine pamoate 50 mg capsule 50 mg PO QIDPRN PRN anxiety 11/29/24
oxycodone-acetaminophen 7.5 mg-325 mg tablet 1 tab PO Q6HPRN PRN severe pain 11/29/24
Review of Systems
-
History Source: Patient, Family (Brother and sister at bedside) and Other
A 12 point ROS was completed and negative except as noted: Yes
Constitutional: Reports Fatigue and Other (Slight confusion); Denies Chills
EENT: Denies Sore Throat or Runny Nose
Respiratory: Reports Trouble Breathing; Denies Cough
Cardiac: Denies Chest Pain, Palpitations or Syncope
Abdomen/GI: Denies Abdominal Pain, Nausea, Vomiting, Diarrhea, Constipated or Bloody Stools
: Denies Dysuria
Musculoskeletal: Reports Other (Chronic dry gangrene right second toe bilateral feet/toes dry with cracking skin); Denies Joint Pain or Edema
Skin: Denies Itching or Rash
Neurological: Reports Weakness (Generalized); Denies Dizzy or Headache
Endocrine: Reports No Symptoms
Hematologic/Lymphatic: Reports No Symptoms
Psych: Reports Calm
Physical Exam
Vital Signs
Vital Signs
Temp Pulse Resp BP Pulse Ox
98.7 F 107 22 94/59 95
11/29/24 09:20 11/29/24 11:15 11/29/24 11:15 11/29/24 11:00 11/29/24 11:15
Physical Exam
General: Conversant and Other (Slight confusion with profound fatigue); No Pain, Fever or Chills
HEENT: NormoCephalic, Anicteric, Moist mucous membranes, PERRLA, [place] Conjunctivae, No Ptosis and Oxygen (2 L nasal cannula)
Respiratory: Other (Diminished breath sounds throughout both lung [place] poor inspiratory effort); No Wheezes or Rales
Cardiac: S1/S2 and Regular Rhythm; No Murmur, Rub, Gallop or Peripheral Edema
Breast: Deferred by me
GI: Soft, Non Tender, Non Distended, Normal Bowel Sounds and No Hepatosplenomegaly
Rectal: Deferred by Provider
Genito-urinary: Deferred by me
Musculoskeletal: No Clubbing, No Cyanosis, No Edema and Other (Dry gangrene right second toe, bilateral feet dry and cracking)
Skin: Warm, Dry and IV/Catheter Site (Right upper chest dialysis catheter); No Rash
Neuro: Awake, Alert, Oriented (To name, place, brother and sister however is confused talks off topic is restless), Cranial Nerves Intact and No Sensory Deficits; No Slurred Speech, Facial Droop or Tremors
Psych: Calm
Laboratory Results
-
11/29/24 09:40
11/29/24 09:40
Laboratory Results
Lactic Acid 2.7 mmol/L (0.7-2.0) H 11/29/24 09:40
Total Bilirubin 0.8 mg/dl (0.2-1.3) 11/29/24 09:40
AST 23 U/L (14-36) 11/29/24 09:40
ALT 18 U/L (0-35) 11/29/24 09:40
Alkaline Phosphatase 92 U/L (38-126) 11/29/24 09:40
Data Reviewed
-
CT Scan: Report Reviewed by me
Lab Data: Labs Reviewed by me
Impression/Plan
-
Impression/plan:
Admit to IMU
# Encephalopathy/sepsis secondary to Multifocal Pneumonia/LEFT moderate pleural effusion
#Recent pneumonia/sepsis with concern for underlying mass 10/24 - 11/05/2024
#Pleural effusions status post thoracentesis years ago [facility],
BP 94/59, HR 107
WBC 21.1> 11.2 on 11/05/2024, lactic acid 2.7 will trend
-Hold carvedilol 3.125 mg Sunday due to hypotension
- Hold Imdur 30 mg Sunday
- IV Cefepime 2000 mg given in ER continue IV Cefepime renal dose
- IV NSS 500 cc bolus given in ER due to hypotension
- Follow blood cultures x 2
- Follow CBC, BMP
- Consult IR for thoracentesis with cytology
#Hypotension secondary sepsis/benign HTN
Hold BP meds
-IV NSS 500 cc bolus given in ER
#Acute on chronic anemia/anemia ESRD
Hgb 7.4 appears near baseline for patient
October admission did receive 1 unit of blood
-Continue iron supplementation
#ESRD on HD
Has been on HD x 4 months right IJ catheter in place
Creat 2.6
- Consult Nephro
#History of Secondary heart block/Cardiomyopathy EF 25-30% stage III diastolic dysfunction
#Status post permanent pacemaker placement 11/03/2024
I/os, daily weights
#ASCVD/CAD/CABG/cardiac stent/PAD
-Continue DAPT, statin
#DM 2
Accu-Cheks with SSI
- Continue insulin regimen
#Recent C. difficile colitis October 2024�no current diarrhea
-Completed course of oral vancomycin
#Dry gangrene right second toe
- Eventual plans for amputation
DVT prophylaxis
Subcu heparin
Full code
--- NOTE | 2024-11-29 13:06 | W.CON.NEPH ---
Consultation
-
Date/Time Consultation Requested: 11/29/2024 1:00 PM
Date/Time Consultation Performed: 11/29/2024 1:00 PM
Requesting Provider: Dr. Youssef
Performing Provider: Dr. Lakhani
Reason for Consultation: End-stage renal disease
Medical History
-
Chief Complaint: End-stage renal disease
History of Present Illness:
59y F with PMH significant for ASCVD, ESRD on HD every Sunday) and recent CDiff infection who presents to ED with shortness of breath confusion and fatigue. She had been admitted to the hospital from October 24 through November 05,
2024 with sepsis suspected for pneumonia and with persistent leukocytosis. She has a history of diabetes maintained on insulin. She has a history of anemia maintained on HEIDI for anemia of ESRD. We were consulted for end-stage renal disease
management. The patient is admitted for suspected pneumonic sepsis.
She has been on dialysis for about 4 months via permacath at [facility].
She follows with Dr. Goodwin at [facility]
Renal consult for dialysis management
Past Medical History
ASCVD, ESRD on HD and recent CDiff infection
Ischemic cardiomyopathy with EF of 25 to 30% with pacemaker placed on 11/03/2024
Right gangrenous second toe
Sacral decubitus
Diabetes
Coronary artery stenting x 3 history of CABG x 4
Left fifth toe amputation
Right IJ dialysis cath
Defibrillator
Peripheral arterial disease
Neuropathy
COPD
Social History
Tobacco: Former Smoker
Alcohol: None
Family History
Family History: Not Pertinent
Allergies / Home Medications
Allergy/AdvReac Type Severity Reaction Status Date / Time
Penicillins Allergy Unknown Verified 03/23/16 15:18
�Medication �Instructions �Recorded �Confirmed �Type
Saccharomyces boulardii 250 mg 250 mg PO BID Supplement 10/24/24 11/29/24 History
capsule (Florastor)
acetaminophen 325 mg tablet 650 mg PO Q6HPRN PRN mild pain 10/24/24 11/29/24 History
(Tylenol)
aspirin 81 mg tablet,delayed 81 mg PO DAILY Blood Clot 10/24/24 11/29/24 History
release Prevention/Tx
atorvastatin 40 mg tablet (Lipitor) 40 mg PO HS High Cholesterol 10/24/24 11/29/24 History
bisacodyl 10 mg rectal suppository 10 mg ND DAILYPRN PRN if no bm 10/24/24 11/29/24 History
(Dulcolax (bisacodyl)) aftr mom
clopidogrel 75 mg tablet (Plavix) 75 mg PO DAILY Blood Clot 10/24/24 11/29/24 History
Prevention/Tx
docusate sodium 100 mg capsule 100 mg PO BIDPRN PRN constipation 10/24/24 11/29/24 History
(Colace)
ezetimibe 10 mg tablet (Zetia) 10 mg PO HS High Cholesterol 10/24/24 11/29/24 History
ferrous sulfate 325 mg (65 mg 162.5 mg PO QPM Supplement 10/24/24 11/29/24 History
iron) tablet
insulin glargine 100 unit/mL 10 unit SC HS Diabetes 10/24/24 11/29/24 History
subcutaneous solution
insulin glargine 100 unit/mL 15 unit SC DAILY Diabetes 10/24/24 11/29/24 History
subcutaneous solution
insulin lispro 100 unit/mL 2 sliding scale dose SC ACHS 10/24/24 11/29/24 History
subcutaneous pen Diabetes
isosorbide mononitrate 30 mg 30 mg PO SUTUTHSA@0800 Blood 10/24/24 11/29/24 History
tablet,extended release 24 hr Pressure
magnesium hydroxide 400 mg/5 mL 2,400 mg PO HSPRN PRN if no bm by 10/24/24 11/29/24 History
oral suspension (Milk of Magnesia) 3rd day
melatonin 3 mg tablet 3 mg PO HS Sleep 10/24/24 11/29/24 History
nitroglycerin 0.4 mg sublingual 0.4 mg sublingual [id number] PRN 10/24/24 11/29/24 History
tablet (Nitrostat) chest pains
ondansetron HCl 4 mg tablet 4 mg PO Q8HPRN PRN nasuea 10/24/24 11/29/24 History
polyethylene glycol 3350 17 gram 17 g PO DAILYPRN PRN constipation 10/24/24 11/29/24 History
oral powder packet (Miralax)
sennosides 8.6 mg tablet (senna) 17.2 mg PO HSPRN PRN constipation 10/24/24 11/29/24 History
therapeutic multivitamin 1 tab PO DAILY Supplement 10/24/24 11/29/24 History
carvedilol 3.125 mg tablet 3.125 mg PO SuTuThSa@0800 Blood 11/29/24 11/29/24 History
Pressure
hydroxyzine pamoate 50 mg capsule 50 mg PO QIDPRN PRN anxiety 11/29/24 11/29/24 History
oxycodone-acetaminophen 7.5 mg-325 1 tab PO Q6HPRN PRN severe pain 11/29/24 11/29/24 History
mg tablet
Review of Systems
-
History Source: Patient
All other systems: Negative unless noted
Constitutional: Fatigue
Respiratory: Trouble Breathing
Skin: Other ((Chronic dry gangrene right second toe bilateral feet/toes dry with cracking skin); Denies Joint Pain or Edema)
Neurological: Other (Some confusion)
Physical Exam
Vital Signs
Vital Signs
Temp Pulse Resp BP Pulse Ox
98.7 F 107 22 94/59 95
11/29/24 09:20 11/29/24 11:15 11/29/24 11:15 11/29/24 11:00 11/29/24 11:15
Lab Results
11/29/24 09:40
11/29/24 09:40
WBC 21.1 10^3/uL (4.8-10.8) H 11/29/24 09:40
RBC 2.65 10^6/uL (4.20-5.40) L 11/29/24 09:40
Hgb 7.4 g/dL (12.0-16.0) L 11/29/24 09:40
Hct 25.3 % (37.0-47.0) L 11/29/24 09:40
Plt Count 389 10^3/uL (130-400) 11/29/24 09:40
Sodium 140 mmol/L (135-145) 11/29/24 09:40
Potassium 4.3 mmol/L (3.5-5.1) 11/29/24 09:40
Chloride 100 mmol/L (98-107) 11/29/24 09:40
Carbon Dioxide 28 mmol/L (22-30) 11/29/24 09:40
BUN 22 mg/dl (7-17) H 11/29/24 09:40
Creatinine 2.6 mg/dL (0.6-1.0) H 11/29/24 09:40
eGFR 20.36 11/29/24 09:40
Glucose 113 mg/dl (70-99) H 11/29/24 09:40
Calcium 8.9 mg/dl (8.4-10.2) 11/29/24 09:40
Albumin 3.4 g/dl (3.5-5.0) L 11/29/24 09:40
Physical Exam
General no acute distress ill-appearing, awake alert and oriented x 2
HEENT no cephalic atraumatic extraocular muscle intact no scleral icterus, PERRLA
Neck: No JVD, neck supple
Lymphatic: No cervical adenopathy
lungs coarse to auscultation bilateral , decreased breath sounds to the bases with normal lung excursion
heart regular S1-S2 tachycardic
abdomen soft nontender positive bowel sounds
extremities no edema pulses present bilateral
Neurologically cranial nerves II through XII appear to be grossly, profound lower extremity neuropathy with loss of proprioception and sensorium below the knees
Skin (Dry gangrene right second toe, bilateral feet dry and cracking), small sacral decubiti, jaundiced appearing
Psych very flat affect, answers most questions appropriately but some inaccurately per family members at bedside
vascular: Right tunneled IJ cath, nonpalpable pedal pulses radial pulses +1
Data Reviewed
-
CT Scan: Report Reviewed by me (CT of the abdomen chest and pelvis: Atrophic kidney, multifocal pneumonia with extensive airspace opacities right perihilar lung and to a smaller degree left perihilar lung associate small-moderate pleural effusions)
Medical Tests (Nuc Med, Echo etc): Other (EKG notes sinus tachycardic rhythm with intraventricular conduction delay 114 beats per minute)
Labs: Labs Reviewed by me (BMP CBC)
Old Records: Reviewed (Reviewed nephrology consultation for ESRD consultation on October 24, 2024 for ESRD)
Assessment/Plan
-
Impression
End-stage renal disease Sunday at [facility]
Presentation with multi focal pneumonia/leukocytosis/encephalopathy
Sepsis
Encephalopathy
Persistent pleural effusion
Anemia
History of ischemic cardiomyopathy with EF of 25 to 30%
Status post pacemaker on 11/03/2024
History of coronary artery disease\\coronary artery disease\\CABG x 4\\multiple stenting procedures
History of peripheral vascular disease
Insulin requiring diabetes
History of recent C. difficile colitis October 2024 admission (no current active symptoms)
History of dry gangrene right second toe
Plan:
No acute dialysis indication given volume status and laboratory review
Next dialysis will be completed on Sunday via PermCath
Weight up 5 kg since discharge on 11/05/2024
Need to attain MAP of 60 or greater in setting of hypotension with suspected sepsis, may require pressor support
Cefepime renally dosed for pneumonic sepsis
Blood cultures pending
HEIDI will utilize on HD
Need accurate I's and O's Daily weights
[2024-11-29] MEDS: VALIUM INJECTION 2 MG IV (13:51)
--- NOTE | 2024-11-29 14:00 | CM ---
Chart reviewed. Patient is LTC resident of [facility] where she received HD 3 times a week. PCP at facility is Dr. Sina Hernandez. Patient uses w/c and rolling walker at SNF.
PLAN return to [facility].
Report
[phone]
fax [phone]
[2024-11-29 17:02] LABS: Glucose - Point of Care 140 mg/dl (70-99)
[2024-11-29 17:44] LABS: Hematocrit 20.6 % (37.0-47.0)
[2024-11-29 18:13] LABS: Glucose 127 mg/dl (70-99); LDH 231 U/L (120-246); Total Protein 6.5 g/dl (6.3-8.2)
[2024-11-29] MEDS: PERCOCET 5/325 1 TABLET PO (18:14)
[2024-11-29] MEDS: FEOSOL 325 MG PO (18:15)
--- NOTE | 2024-11-29 18:17 | PTCARENOTE ---
Admitted to 3355- IMU monitors placed- SR, 80 BP 80s-90s/50s. AAOx2, off on place- answers appropriately at times. RCW HD cath intact. PO diet ordered. C/o pain buttocks and feet- prn given.
[2024-11-29] MEDS: NSS 250 IV (19:11)
--- NOTE | 2024-11-29 19:24 | PTCARENOTE ---
BP remains in 80s/50s, Lactic acid now 1.9. Drinking fluids, sister feeding her dinner. AAOx2 odd affect. D/w Dr. Leung 250ml bolus ordered.
[2024-11-29] MEDS: HEPARIN 5000 UNITS SC (20:11)
[2024-11-29] MEDS: ATARAX 50 MG PO (20:13)
[2024-11-29] MEDS: LIPITOR 40 MG PO (20:13)
[2024-11-29] MEDS: FLORASTOR 250 MG PO (20:13)
[2024-11-29] MEDS: ZETIA 10 MG PO (20:14)
[2024-11-29 22:09] LABS: Glucose - Point of Care 224 mg/dl (70-99)
[2024-11-29] MEDS: LANTUS 0.1 UNITS SC (22:32)
[2024-11-29] MEDS: MAXIPIME 1000 MG IV (22:33)
[2024-11-29] MEDS: MELATONIN 5 MG PO (22:46)
[2024-11-30] VITALS (38 sets, daily range): BP systolic 84–122; BP diastolic 41–98; BMI 23.3
[2024-11-30 05:47] LABS: Hematocrit 21.1 % (37.0-47.0); Hemoglobin 6.3 g/dL (12.0-16.0); Mean Corp Hgb Conc. 29.9 g/dL (33.0-37.0); Mean Corpuscular Volume 89.4 fL (81.0-99.0); Nucleated Red Blood Cells % 0 %; Platelet Count 321 10^3/uL (130-400); Red Cell Dist. Width 17.5 % (11.5-14.5)
[2024-11-30 05:50] LABS: ALT (SGPT) 19 U/L (0-35); AST (SGOT) 63 U/L (14-36); Albumin 3.1 g/dl (3.5-5.0); Alkaline Phosphatase 82 U/L (38-126); Blood Urea Nitrogen 33 mg/dl (7-17); Calcium 8.9 mg/dl (8.4-10.2); Carbon Dioxide 26 mmol/L (22-30); Chloride 99 mmol/L (98-107); Estimated Creatinine Clearance 17 ml/min; Glucose 166 mg/dl (70-99); Potassium 4.6 mmol/L (3.5-5.1); Sodium 133 mmol/L (135-145); Total Protein 6.6 g/dl (6.3-8.2); eGFR 14.25
--- NOTE | 2024-11-30 06:12 | W.PN.UPDATE ---
Update Note
Progress Note Update
Hgb level is 6.3 this am, previously 7.4. No signs of bleeding. BP on the soft side.
Verbal consent for blood transfusion obtained from the daughter/ Silvia, type & screen, and one unit of blood ordered
--- NOTE | 2024-11-30 06:30 | PTCARENOTE ---
Pt resting throughout shift. AAOx2. Confused/forgetful. Received 250ml NS bolus at beginning of shift for low BP. SBP's throughout shift 90's-110's. MAPs > 60. Yells out intermittently. Pt requested something to sleep. Tom HAAS TT'd and order
entered for 5mg Melatonin. Pt received Melatonin with good relief. VSS. Afebrile. SR on CM rate 70-80's. Anuric. Incontinent 2 soft brown BM overnight. POX 4L 94-100%. Lungs diminished. No change from previous assessment. Maintained on Q2hr turns.
Wounds as documented. Call monet remains within reach. Will continue to monitor.
[2024-11-30 08:32] LABS: Glucose - Point of Care 150 mg/dl (70-99)
[2024-11-30] MEDS: PLAVIX 75 MG PO (09:02)
[2024-11-30] MEDS: THERAGRAN 1 TABLET PO (09:02)
[2024-11-30] MEDS: LANTUS 0.15 UNITS SC (09:03)
[2024-11-30] MEDS: FLORASTOR 250 MG PO ×2 (09:03→19:46)
[2024-11-30] MEDS: ASPIR LOW (ENTERIC COATED) 81 MG PO (09:04)
--- NOTE | 2024-11-30 09:05 | W.PN.NEPH.PH ---
Today's Communication / Plan
-
Dialysis tomorrow
Will add midodrine support today for hypotension
Assessment/Plan
-
Impression
End-stage renal disease Sunday at [facility]
Presentation with multi focal pneumonia/leukocytosis/encephalopathy
Sepsis
Encephalopathy
Persistent pleural effusion
Anemia
History of ischemic cardiomyopathy with EF of 25 to 30%
Status post pacemaker on 11/03/2024
History of coronary artery disease\\coronary artery disease\\CABG x 4\\multiple stenting procedures
History of peripheral vascular disease
Insulin requiring diabetes
History of recent C. difficile colitis October 2024 admission (no current active symptoms)
History of dry gangrene right second toe
Plan:
Dialysis for tomorrow
Will escalate HEIDI in setting of anemia but transfusion to be recommended as hemoglobin is less than 7 and patient is hypotensive
Next dialysis will be completed on Sunday via PermCath, orders provide
Weight up 6 kg since discharge on 11/05/2024
Need to attain MAP of 60 or greater in setting of hypotension with suspected sepsis, may require pressor support
Cefepime renally dosed for pneumonic sepsis
Blood cultures pending
Patient had high clinical risk with ongoing hemodynamic instability in the setting of pneumonia and worsening anemia , concur with blood transfusion and will add low-dose midodrine to augment blood pressure
-
-
Date of Service: November 30, 2024
CC / HPI / ROS
-
Chief Complaint:
ESRD
History of Present Illness:
ESRD Sunday
Hemodynamically labile
White cell count following remains on cefepime for multilobar pneumonia
Anemia worsening requiring blood
Review of Systems:
No fever
No chest pain
Complains of weak
Labs
-
Labs:
WBC 11.7 10^3/uL (4.8-10.8) H 11/30/24 05:11
RBC 2.36 10^6/uL (4.20-5.40) L 11/30/24 05:11
Hgb 6.3 g/dL (12.0-16.0) L* 11/30/24 05:11
Hct 21.1 % (37.0-47.0) L 11/30/24 05:11
Plt Count 321 10^3/uL (130-400) 11/30/24 05:11
Sodium 133 mmol/L (135-145) L 11/30/24 05:11
Potassium 4.6 mmol/L (3.5-5.1) 11/30/24 05:11
Chloride 99 mmol/L (98-107) 11/30/24 05:11
Carbon Dioxide 26 mmol/L (22-30) 11/30/24 05:11
BUN 33 mg/dl (7-17) H 11/30/24 05:11
Creatinine 3.5 mg/dL (0.6-1.0) H 11/30/24 05:11
eGFR 14.25 11/30/24 05:11
Glucose 166 mg/dl (70-99) H 11/30/24 05:11
Calcium 8.9 mg/dl (8.4-10.2) 11/30/24 05:11
Albumin 3.1 g/dl (3.5-5.0) L 11/30/24 05:11
Physical Exam
-
Vital Signs:
Vital Signs
Temp Pulse Resp BP Pulse Ox
98.5 F 76 15 99/56 100
11/30/24 07:56 11/30/24 06:15 11/30/24 06:15 11/30/24 06:00 11/29/24 21:45
Cardiovascular:: Regular rate and rhythm
Respiratory:: Bilateral: Coarse
Lung Excursion:: Normal
Abdomen:: Nontender and Soft
Bowel Sounds:: Normal
Extremity Edema:: None: Bilateral:
Damon Catheter: No
Other Findings::
HD catheter tunneled right IJ
[2024-11-30] MEDS: HEPARIN 5000 UNITS SC ×2 (09:07→19:46)
[2024-11-30] MEDS: STERILE WATER FOR INJECTION 10 ML IV ×2 (10:57→22:30)
[2024-11-30] MEDS: MAXIPIME 1000 MG IV ×2 (10:57→22:29)
--- NOTE | 2024-11-30 11:23 | PTCARENOTE ---
Patient blood pressure 80/40s earlier, Hgb 6.3. Midodrine 5mg administered an one unit of PRBCs infusing at this time. BP is now 107/56, heart rate 80, afebrile, pulse ox 99% on 2 liters via nasal cannula.
[2024-11-30] MEDS: PERCOCET 5/325 1 TABLET PO ×2 (11:37→17:33)
[2024-11-30] MEDS: ATARAX 50 MG PO ×2 (11:38→19:45)
[2024-11-30 12:36] LABS: Glucose - Point of Care 124 mg/dl (70-99)
[2024-11-30 14:49] LABS: Glycohemoglobin (HgbA1c) 6.2 % (4.0-5.9)
--- NOTE | 2024-11-30 15:35 | W.PN.HOSP.TC ---
Today's Communication/Plan
-
Assessment / Plan
Assessment / Plan
General: No Apparent Distress, chronically ill-appearing, uncomfortable constantly repositioning in bed
HEENT: NormoCephalic, dry mucous membranes, Atraumatic
Respiratory: Scattered rhonchi bilaterally, decreased breath sounds at the left base, Non Labored Respirations
Cardiac: S1/S2 and Regular Rhythm; No Rub or Gallop, right chest PermCath
GI: Soft, normal bowel sounds
Musculoskeletal: No Edema, right second toe dry gangrene
Skin: Warm and dry, pale
: No Damon
Neuro: Awake, Alert, nonfocal/grossly intact
Psych: Calm and cooperative
Ms. Juárez is a 59-year-old female with significant medical issues for age including ischemic cardiomyopathy with combined systolic and diastolic heart failure (LVEF 25 to 30%, AICD placed 09/17/2024), cardiogenic syncopes due to second-degree heart
block (pacemaker placed 11/03/2024), CAD (CABG x 4, PCI with 3 stents), ESRD, anemia of chronic disease, PAD (right second toe dry gangrene), and COPD who presented with shortness of breath and confusion. She had a recent hospitalization for
treatment of sepsis secondary to pneumonia and C. difficile colitis. In the ED today she was afebrile, hypotensive and dyspneic. Her oxygen saturation remained stable in the mid 90s. Labs were significant for leukocytosis of 21,000, anemia with a
hemoglobin of 7.4 (consistent with her baseline), lactic acid of 2.7, and a creatinine of 2.6 (consistent with a baseline with ESRD). Chest imaging showed multifocal pneumonia and bilateral pleural effusions left greater than right. She was
started on antibiotics, given gentle IV fluids and admitted for further evaluation and management.
Sepsis secondary to pneumonia:
- Continue antibiotics with cefepime
- Cultures negative to date, MRSA screen pending
- IR consult for thoracentesis, will send cultures, fluid studies, and cytology considering previous report of possible lung mass
- With associated encephalopathy likely due to sepsis, monitor for improvement with treatment for pneumonia
Anemia requiring transfusions:
- Symptomatic anemia likely contributing to overall weakness
- Hemoglobin 6.3 this morning below usual low baseline in the setting of end-stage renal disease
- Transfusing 1 unit PRBCs
- Will check H&H after transfusion
Metabolic encephalopathy:
- Likely secondary to sepsis
- Improving with treatment for sepsis
Hypotension:
- Suspect contributed to by severely depressed ejection fraction
- Improved after gentle IV fluids and starting midodrine
- MAPs remain within acceptable limits
- Monitor
Chronic combined systolic and diastolic heart failure
- Currently compensated
- LVEF 25 to 30%
- ICD in place
- Not on afterload reducing agents due to hypotension
- Will continue beta-blockade with low-dose metoprolol to tartrate with holding parameters for hypotension, hold home low-dose carvedilol
ESRD:
- Via right chest PermCath
- Nephrology following, planning dialysis tomorrow 12/01
- Midodrine for hypotension
IDDM:
- Continue Lantus 15 units in the morning and 10 units at night
- Additional sliding scale as needed
- Hemoglobin A1c 6.2%
Dry gangrene, right second toe:
- Secondary to peripheral vascular disease
- Plans for eventual amputation
- Continue local wound care as needed
- Continue aspirin and Plavix, high intensity statin
DVT prophylaxis: Subcu heparin
CODE STATUS: Full code
Anticipated Discharge: > 48 hours
Subjective/Interval History
-
Date of Service: November 30, 2024
Patient was seen and examined at bedside this morning. Still feeling very weak. Transfusing 1 unit PRBCs for hemoglobin of 6.3 on labs this morning.
Objective Data
-
Labs:
Laboratory Results
11/30/24 11/30/24
05:11 14:44
WBC 11.7 H
Hgb 6.3 L* Pending
Hct 21.1 L Pending
Plt Count 321
Sodium 133 L
Potassium 4.6
Chloride 99
Carbon Dioxide 26
BUN 33 H
Creatinine 3.5 H
Glucose 166 H
Calcium 8.9
Total Bilirubin 0.8
AST 63 H
ALT 19
Alkaline Phosphatase 82
Vital Signs:
Vital Signs
Temp Pulse Resp BP Pulse Ox
97.1 F 82 22 122/98 97
11/30/24 13:45 11/30/24 15:15 11/30/24 15:15 11/30/24 15:00 11/30/24 15:15
I&O
11/29/24 11/30/24 12/01/24
06:59 06:59 06:59
Intake Total 450 / 450 620 / 620
Output Total 0 / 0
Balance 450 / 450 620 / 620
Review of Systems
-
History Source: Patient
All other systems: Reviewed and negative
Constitutional: Reports Weakness
Physical Exam
-
General: No Apparent Distress
[2024-11-30] MEDS: FEOSOL 325 MG PO (17:13)
[2024-11-30 17:21] LABS: Hematocrit 24.1 % (37.0-47.0); Hemoglobin 7.3 g/dL (12.0-16.0)
[2024-11-30 17:48] LABS: Glucose - Point of Care 82 mg/dl (70-99)
[2024-11-30] MEDS: LIPITOR 40 MG PO (19:45)
[2024-11-30] MEDS: ZETIA 10 MG PO (19:45)
[2024-11-30] MEDS: LOPRESSOR 12.5 MG PO (19:45)
[2024-11-30 20:47] LABS: Glucose - Point of Care 41 mg/dl (70-99)
[2024-11-30 21:03] LABS: Glucose - Point of Care 52 mg/dl (70-99)
[2024-11-30] MEDS: LANTUS SC (21:16)
--- NOTE | 2024-11-30 21:16 | PTCARENOTE ---
patient told this RN that she can feel here sugar is low. Checked patient sugar and it was 41. followed hypoglycemic protocol, sugar is now 81. since patient sugar dropped patient told this RN she did not want her insulin tonight. continuing to
monitor blood sugar per protocol.
[2024-11-30 21:19] LABS: Glucose - Point of Care 81 mg/dl (70-99)
[2024-11-30 23:49] LABS: Glucose - Point of Care 86 mg/dl (70-99)
[2024-12-01] VITALS (36 sets, daily range): BP systolic 82–145; BP diastolic 39–111; BMI 23.2
[2024-12-01 01:59] LABS: Glucose - Point of Care 94 mg/dl (70-99)
[2024-12-01 04:59] LABS: Glucose - Point of Care 72 mg/dl (70-99)
--- NOTE | 2024-12-01 05:13 | PTCARENOTE ---
patient began agitated with staff this morning while attempting to draw labs. patient refused lab draw and would not allow us to do care this morning.
[2024-12-01] MEDS: ATARAX PO (07:41)
[2024-12-01] MEDS: HEPARIN SC (08:00)
--- NOTE | 2024-12-01 08:06 | PTCARENOTE ---
Received this am, confused very agitated. HD RN here to do treatment and pt uncooperative screaming and trying to grab us (has very long nails)- called daughter and had her talk to her- shes was pleading to her- daughter requested I give pt prn
Atarax- given but pt refusing to take- multiple attempts to reorient unsuccessfully- she does not believe shes in the hospital and thinks we are all children, putting arms up not allowing treatment. MD here to eval - bilateral wrist restraints
applied - re-offered Atarax- refused again. Will continue to provide emotional support and reorientation.
[2024-12-01 08:28] LABS: Hematocrit 24.6 % (37.0-47.0); Hemoglobin 7.3 g/dL (12.0-16.0); Mean Corp Hgb Conc. 29.7 g/dL (33.0-37.0); Mean Corpuscular Volume 92.1 fL (81.0-99.0); Nucleated Red Blood Cells % 0 %; Platelet Count 351 10^3/uL (130-400); Red Cell Dist. Width 17.8 % (11.5-14.5)
[2024-12-01] MEDS: RETACRIT 10000 UNITS IV (08:36)
[2024-12-01 09:25] LABS: ALT (SGPT) 20 U/L (0-35); AST (SGOT) 46 U/L (14-36); Albumin 3.3 g/dl (3.5-5.0); Alkaline Phosphatase 106 U/L (38-126); Blood Urea Nitrogen 44 mg/dl (7-17); Calcium 8.9 mg/dl (8.4-10.2); Carbon Dioxide 26 mmol/L (22-30); Chloride 98 mmol/L (98-107); Estimated Creatinine Clearance 13 ml/min; Glucose 90 mg/dl (70-99); Potassium 5.0 mmol/L (3.5-5.1); Sodium 135 mmol/L (135-145); Total Protein 7.0 g/dl (6.3-8.2); eGFR 10.54
--- NOTE | 2024-12-01 09:44 | W.PN.HOSP.TC ---
Addendum entered and electronically signed by Liu Heredia MD 12/02/24 06:30:
Stage 1 sacrum pressure injury, POA
- Stage 2 left buttock pressure injury, POA
Original Note:
Today's Communication/Plan
-
f/w pulmonary recommendations
IV Abx
HD today
temporary restraints while on HD, consulted psych for agitation
Assessment / Plan
Assessment / Plan
Physical exam:
General: No Apparent respiratory Distress, chronically ill-appearing, agitated and screaming at times if touched. Getting HD.
HEENT: Normocephalic, dry mucous membranes, Atraumatic
Respiratory: Scattered rhonchi bilaterally, decreased breath sounds at the left base, Non Labored Respirations
Cardiac: S1/S2 and Regular Rhythm; No Rub or Gallop, right chest PermCath
GI: Soft, normal bowel sounds
Musculoskeletal: No Edema, right second toe dry gangrene
Skin: Warm and dry, pale
: No Damon
Neuro: Awake, does not want to follow commands
Psych: Agitated
Ms. Juárez is a 59-year-old female with significant medical issues for age including ischemic cardiomyopathy with combined systolic and diastolic heart failure (LVEF 25 to 30%, AICD placed 09/17/2024), cardiogenic syncopes due to second-degree heart
block (pacemaker placed 11/03/2024), CAD (CABG x 4, PCI with 3 stents), ESRD, anemia of chronic disease, PAD (right second toe dry gangrene), and COPD who presented with shortness of breath and confusion. She had a recent hospitalization for
treatment of sepsis secondary to pneumonia and C. difficile colitis. In the ED today she was afebrile, hypotensive and dyspneic. Her oxygen saturation remained stable in the mid 90s. Labs were significant for leukocytosis of 21,000, anemia with a
hemoglobin of 7.4 (consistent with her baseline), lactic acid of 2.7, and a creatinine of 2.6 (consistent with a baseline with ESRD). Chest imaging showed multifocal pneumonia and bilateral pleural effusions left greater than right. She was
started on antibiotics, given gentle IV fluids and admitted for further evaluation and management.
#Sepsis POA / septic shock secondary to pneumonia:
Lactic acidosis, resolved
CT showed : Multifocal pneumonia with extensive airspace opacities throughout the right perihilar lung and to a lesser degree the left perihilar lung. There are associated small/moderate pleural effusions, more pronounced on the left.
- Continue antibiotics with cefepime
- Cultures of urine & blood negative to date, MRSA screen negative
Negative COVID & Flu
- IR consult for thoracentesis, will send cultures, fluid studies, and cytology considering previous report of possible lung mass
Appreciate pulmonary help
-
#TME
With associated encephalopathy likely due to sepsis, monitor for improvement with treatment for pneumonia
Very agitated this morning. Will consult psych. Temporary restraints while getting HD for protection
Per staff, using Atarax for anxiety at home
#Anemia of chronic disease requiring transfusions:
- Symptomatic anemia likely contributing to overall weakness
- Hemoglobin 6.3 this morning below usual low baseline in the setting of end-stage renal disease
- s/p transfusing 1 unit PRBCs
Hyponatremia
Septic shock POA with Hypotension:
- Suspect contributed to by severely depressed ejection fraction
- Improved after gentle IV fluids and starting midodrine
- MAPs remain within acceptable limits
- Monitor
Chronic combined systolic and diastolic heart failure
- Currently compensated
- LVEF 25 to 30%
- ICD in place
- Not on afterload reducing agents due to hypotension
- Will continue beta-blockade with low-dose metoprolol to tartrate with holding parameters for hypotension, hold home low-dose carvedilol
ESRD:
- Via right chest PermCath
- Nephrology following, planning dialysis tomorrow 12/01
- Midodrine for hypotension
IDDM:
- Continue Lantus 15 units in the morning and 10 units at night
- Additional sliding scale as needed
- Hemoglobin A1c 6.2%
Dry gangrene, right second toe:
- Secondary to peripheral vascular disease
- Plans for eventual amputation
- Continue local wound care as needed
- Continue aspirin and Plavix, high intensity statin
DVT prophylaxis: Subcu heparin
CODE STATUS: Full code
Total time spent to see the patient, examined the patient, review data and lab result, discuss treatment plan with patient, nursing staff, consultants around 55 minutes
Anticipated Discharge: > 48 hours
Subjective/Interval History
-
Date of Service: December 01, 2024
Agitated, does not want to get treatments
Objective Data
-
Labs:
Laboratory Results
12/01/24
08:05
WBC 12.3 H
Hgb 7.3 L
Hct 24.6 L
Plt Count 351
Sodium 135
Potassium 5.0
Chloride 98
Carbon Dioxide 26
BUN 44 H
Creatinine 4.5 H*
Glucose 90
Calcium 8.9
Total Bilirubin 0.8
AST 46 H
ALT 20
Alkaline Phosphatase 106
Vital Signs:
Vital Signs
Temp Pulse Resp BP Pulse Ox
98.4 F 87 12 114/69 100
12/01/24 03:00 12/01/24 08:08 12/01/24 08:08 12/01/24 08:08 12/01/24 08:08
I&O
11/30/24 12/01/24 12/02/24
06:59 06:59 06:59
Intake Total 450 / 450 620 / 620
Output Total 0 / 0
Balance 450 / 450 620 / 620
--- NOTE | 2024-12-01 10:27 | PTCARENOTE ---
Daughter present, pt remains agitated. Currently tolerating HD. Daughter reattempted po atarax- still refusing. Ask for a drink then refuse it. Calm sleeping 1 min very agitated the next. Daughter and Hd RN repositioned.
[2024-12-01] MEDS: HEPARIN 4000 UNITS INTRACATH (11:11)
[2024-12-01] MEDS: PLAVIX 75 MG PO (11:38)
[2024-12-01] MEDS: LANTUS 0.15 UNITS SC (11:38)
[2024-12-01] MEDS: FLORASTOR 250 MG PO ×2 (11:39→20:37)
[2024-12-01] MEDS: LOPRESSOR 12.5 MG PO (11:39)
[2024-12-01] MEDS: THERAGRAN 1 TABLET PO (11:41)
[2024-12-01] MEDS: ASPIR LOW (ENTERIC COATED) 81 MG PO (11:41)
[2024-12-01 11:47] LABS: Glucose - Point of Care 103 mg/dl (70-99)
[2024-12-01] MEDS: MAXIPIME 1000 MG IV (11:48)
[2024-12-01] MEDS: STERILE WATER FOR INJECTION 10 ML IV (11:48)
[2024-12-01] MEDS: NOVOLOG FLEXPEN-MODERATE RESISTANCE SC (11:56)
[2024-12-01] MEDS: ATARAX 50 MG PO ×2 (13:08→16:36)
[2024-12-01] MEDS: FIRVANQ 125 MG PO ×2 (13:08→16:37)
[2024-12-01] MEDS: DILAUDID 0.25 MG IV ×2 (13:09→17:32)
--- NOTE | 2024-12-01 13:13 | W.PN.UPDATE ---
Update Note
Progress Note Update
Addendum
Spoke with daughter ( Silvia) who is in charge of her mother's care
Patient has had MIs, CMP
Significant CV disease and PVD
Per cardiology: Recent cardiac catheterization May 2024 continue medical therapy for CAD.
Continue dual antiplatelet therapy Imdur and statin.
Plan was to do vascular intervention for chronic low extremity vascular ischemic disease ( PVD)
Pt has chronic pain/ aches, used oxy/ Percocet: ok to give pain medicine per daughter
Known to have had head images in [facility] for confusion: no acute findings
Pt had opted for full code in past after she was DNR
Family will do hospice care when pt starts to show signs of decline and not responding to treatments. Pt had opted to decline feeding tubes/ life sustaining machine if needed per her wishes.
For now, treat infection/ drain fluid to provide comfort. Use pain medicine as needed.
Pt had severe C Diff colitis, will do oral vancomycin while on IV Abx for PNA.
Pt refused to see psychiatrist
End
--- NOTE | 2024-12-01 13:38 | PTCARENOTE ---
1230 HD completed, daughter is present as well as her brother- pt calmer compliant with med administration. Restraints removed.
Currently - c/o pain 8/10 buttocks IV Dilaudid administered as well as prn atarax as she is going for thoracentesis now.
--- NOTE | 2024-12-01 14:16 | PN.CDI ---
CDI
- -
CDI:
Physician Documentation Request
Admit Date: 11/29/24 13:12
Dear Doctor Yan,
Please review the following and provide your response in the progress notes.
Clinical Indicators:
- RN skin assessments indicate:
- Stage 1 sacrum pressure injury, POA
- Stage 2 left buttock pressure injury, POA
Physician documentation of the type and location of wounds is required for compliant documentation. Based on the above clinical findings and your assessment, please provide the following in your progress note:
1. Location of the ulcer/wound, including laterality.
2. Type (etiology) of ulcer/wound:
- Diabetic ulcer
- Arterial (ischemic) ulcer
- Traumatic wound
- Venous stasis ulcer
- Pressure (decubitus) ulcer
- Other
Use of terms such as suspected, likely, concern for, or probable (associated with a specific diagnosis that is being evaluated, monitored, or treated as if it exists) are acceptable and can be coded in the inpatient setting, when documented at the
time of discharge.
Thank you,
Varun Hamilton RN
CDI Specialist
Please use your independent medical judgment in providing your response.
*Source: National Pressure Ulcer Advisory Panel (NPUAP)
--- NOTE | 2024-12-01 14:28 | WOUNDNOTE ---
WOC RN note: Patient off unit in IR for thoracentesis. Will visit later or will ask Melody REYNOLDS RN will see patient tomorrow.
--- NOTE | 2024-12-01 15:12 | CON.PUL ---
Consultation
Consultation Request
Date/Time Consultation Requested: 12/01/2024
Date/Time Consultation Performed: 12/01/2024
Medical History
-
History of Present Illness:
Patient is a 59-year-old female with known history of severe ischemic cardiomyopathy with LVEF 25 to 30%, s/p AICD as well as end-stage renal disease on hemodialysis who presented to the hospital with shortness of breath as well as altered mental
status. Patient recently was admitted with sepsis related to pneumonia complicated by C. difficile colitis. In the ED patient was afebrile but noted to have low blood pressure and shortness of breath. Imaging was suggestive of multifocal
infiltrate, elevated WBC count as well as suspected bilateral pleural effusions, left more than right. Pulmonary consultation was requested for further input.
During my evaluation, patient upset and declined any interview. History was mostly obtained from patient chart as well as discussion with patient's daughter at bedside. Patient also declined detailed exam and I was only able to do a limited
physical exam.
Past Medical History
Past Medical History: Reports Other
Additional Past Medical History:
cardiomyopathy EF 25-30% new October 2024
status post permanent pacemaker 11/03/2024
chronic stage III systolic heart failure
pleural effusions status post thoracentesis years ago [facility], ESRD on H
, chronic anemia
DM2
CAD/CABG x 4, PTCA with cardiac stents x 3
PAD/dry gangrene right second toe
HTN
HLD
COPD
Former smoker quit 10 years ago
neuropathy
Past Surgical History: Reports Other
Additional Past Surgical History:
x 3
PTCA with Stent (x 3)
CABG x 4
L 5th Toe Amputation
R IJ HD Catheter
Defibrillator (SICD)
Social History
Tobacco: Former Smoker (Quit 10 years ago)
Alcohol: None
Drug: None
Personal: Single
Living: Senior Care
Family History
Family History: Not pertinent
Allergies / Home Medications
Allergies reflects when Allergies were last updated in [employer].
Home Medications with original date entered in [employer]
Allergy/Medication List:
Allergies / Home Medications
Allergies
Allergy/AdvReac Type Severity Reaction Status Date / Time
Penicillins Allergy Unknown Verified 03/23/16 15:18
Home Medications
�Medication �Instructions �Recorded �Confirmed �Last Taken �Type
Saccharomyces boulardii 250 mg 250 mg PO BID Supplement 10/24/24 11/29/24 11/28/24 History
capsule (Florastor)
acetaminophen 325 mg tablet 650 mg PO Q6HPRN PRN mild pain 10/24/24 11/29/24 Unknown History
(Tylenol)
aspirin 81 mg tablet,delayed 81 mg PO DAILY Blood Clot 10/24/24 11/29/24 11/28/24 History
release Prevention/Tx
atorvastatin 40 mg tablet (Lipitor) 40 mg PO HS High Cholesterol 10/24/24 11/29/24 11/28/24 History
bisacodyl 10 mg rectal suppository 10 mg TX DAILYPRN PRN if no bm 10/24/24 11/29/24 Unknown History
(Dulcolax (bisacodyl)) aftr mom
clopidogrel 75 mg tablet (Plavix) 75 mg PO DAILY Blood Clot 10/24/24 11/29/24 11/28/24 History
Prevention/Tx
docusate sodium 100 mg capsule 100 mg PO BIDPRN PRN constipation 10/24/24 11/29/24 Unknown History
(Colace)
ezetimibe 10 mg tablet (Zetia) 10 mg PO HS High Cholesterol 10/24/24 11/29/24 11/28/24 History
ferrous sulfate 325 mg (65 mg 162.5 mg PO QPM Supplement 10/24/24 11/29/24 11/28/24 History
iron) tablet
insulin glargine 100 unit/mL 10 unit SC HS Diabetes 10/24/24 11/29/24 11/28/24 History
subcutaneous solution
insulin glargine 100 unit/mL 15 unit SC DAILY Diabetes 10/24/24 11/29/24 11/28/24 History
subcutaneous solution
insulin lispro 100 unit/mL 2 sliding scale dose SC ACHS 10/24/24 11/29/24 11/28/24 History
subcutaneous pen Diabetes
isosorbide mononitrate 30 mg 30 mg PO SUTUTHSA@0800 Blood 10/24/24 11/29/24 11/27/24 History
tablet,extended release 24 hr Pressure
magnesium hydroxide 400 mg/5 mL 2,400 mg PO HSPRN PRN if no bm by 10/24/24 11/29/24 Unknown History
oral suspension (Milk of Magnesia) 3rd day
melatonin 3 mg tablet 3 mg PO HS Sleep 10/24/24 11/29/24 11/28/24 History
nitroglycerin 0.4 mg sublingual 0.4 mg sublingual [id number] PRN 10/24/24 11/29/24 Unknown History
tablet (Nitrostat) chest pains
ondansetron HCl 4 mg tablet 4 mg PO Q8HPRN PRN nasuea 10/24/24 11/29/24 Unknown History
polyethylene glycol 3350 17 gram 17 g PO DAILYPRN PRN constipation 10/24/24 11/29/24 Unknown History
oral powder packet (Miralax)
sennosides 8.6 mg tablet (senna) 17.2 mg PO HSPRN PRN constipation 10/24/24 11/29/24 Unknown History
therapeutic multivitamin 1 tab PO DAILY Supplement 10/24/24 11/29/24 11/28/24 History
carvedilol 3.125 mg tablet 3.125 mg PO SuTuThSa@0800 Blood 11/29/24 11/29/24 11/27/24 History
Pressure
hydroxyzine pamoate 50 mg capsule 50 mg PO QIDPRN PRN anxiety 11/29/24 11/29/24 11/28/24 History
oxycodone-acetaminophen 7.5 mg-325 1 tab PO Q6HPRN PRN severe pain 11/29/24 11/29/24 11/28/24 History
mg tablet
Review of Systems
-
Hematologic/Lymphatic: Other (Only limited ROS due to patient's mental status)
Vitals / Labs / Diagnostic Testing
Vital Signs
Temp Pulse Resp BP Pulse Ox
98.9 F 88 21 106/70 98
12/01/24 15:09 12/01/24 14:53 12/01/24 14:53 12/01/24 14:53 12/01/24 14:20
Lab Data
12/01/24 08:05
12/01/24 08:05
Microbiology
11/29/24 09:40 Blood/Venous Blood Culture - Preliminary
No Growth in 48 hours- Final report to follow
11/30/24 04:41 Nose MRSA Screen - Final
No Methicillin Resistant Staphylococcus aureus isolated.
11/29/24 10:59 Urine Urine Culture - Final
11/29/24 09:40 Nasal Swab Influenza Types A & B (MINOR) - Final
Negative for Influenza A & B, NAAT
Negative results must be combined with clinical observations
and patient history.
Nucleic Acid Amplification test (NAAT)performed on the
[employer] platform.
Diagnostic Testing:
Physical Exam
-
HEENT: Normocephalic
Cardiovascular: Peripheral Edema (Trace pedal edema)
Respiratory: Rales
GI: Soft
Neurology: Awake, Alert and Other (Agitated)
Skin: Warm
General: Comfortable
Assessment
-
#1. Shortness of breath
- Suspect patient's shortness of breath is primarily related to pulmonary edema, volume overload as well as pleural effusions.
- Suspect underlying heart failure and single disease primarily contributing to symptoms
- WBC count elevated however no fever or significant cough or expectoration reported. Pneumonia versus compressive atelectasis due to volume overload both are in differential diagnosis
- No wheezing on exam. Remote smoking history, not on any inhalers at baseline. Doubt significant underlying COPD/Emphysema
#2. Suspect multifocal pneumonia with sepsis
- Differential diagnosis include both multifocal pneumonia versus pulmonary edema, volume overload as well as compressive atelectasis due to pleural effusions
- Post-thoracentesis chest x-ray with significantly improved left-sided opacity more suggestive of compressive atelectasis rather than true pneumonia
- Persistent right lower lobe opacity, again differential diagnosis include atelectasis, pneumonia, compressive atelectasis due to small pleural effusion and volume overload
- Multiple prior rounds of antibiotics for suspected pneumonia. With prior history of C. difficile colitis, will favor only 5 days of antibiotic.
- If pleural fluid analysis suggests transudate and follow-up imaging improves after volume removal, will consider discontinuing antibiotics even earlier
#3. Pleural effusions.
- Left greater than right. S/p IR guided thoracentesis on left side on 12/01
- Await pleural fluid studies
- Suspect effusions are related to underlying congestive heart failure as well as end-stage renal disease. Parapneumonic/empyema also in differential diagnosis but less likely
#4. Acute on chronic heart failure with reduced ejection fraction, pulmonary edema, LVEF 25 to 30%
- Patient makes minimal urine
- Continue volume removal as able with hemodialysis, nephrology service on case
Other medical diagnoses:
- History of C. difficile colitis, currently on p.o. vancomycin prophylactically
- Anemia of renal disease
- Diabetes mellitus
- Hypertension
- End-stage neural disease on hemodialysis
- Coronary artery disease, s/p coronary artery bypass graft
- History of PCI, December 2022, in-stent restenosis 05/2024
- Ischemic cardiomyopathy, EF 25%, s/p Pacemaker, ICD placement 09/2024
- Prior history of smoking
Total time spent on this consultation/encounter _65__ minutes which includes review of history, physical exam, medications, laboratory data, personal review of imaging, extensive review of outpatient records, discussion with care team and
respiratory therapy.
Data:
CT C/A/P 11/2024: 1. Multifocal pneumonia with extensive airspace opacities throughout the right perihilar lung and to a lesser degree the left perihilar lung. There are associated small/moderate pleural effusions, more pronounced on the left.
2. There is mild circumferential urinary bladder wall thickening which can be seen with cystitis.
3. Mild renal atrophy.
ECHO 10/2024: 1. Technically difficult study.
2. Ejection fraction is 25-30% by volumetric assesment.
3. Stage III diastolic dysfunction suggestive of restricted filling pattern and increased filling pressures.
4. Global hypokinesis with possible septal dyskinesis.
5. Left ventricular cavity size is 5.75 cm which is mildly increased.
6. Moderate mitral valve regurgitation.
7. Pleural effusion is noted.
--- NOTE | 2024-12-01 15:15 | CM ---
HD, IV/Cefepime, Psych consult for agitation. Discharge POC: Return to [facility] for resumption of LTC.
--- NOTE | 2024-12-01 15:38 | WOUNDNOTE ---
R TOES/PLANTAR FOREFOOT
--- NOTE | 2024-12-01 15:39 | WOUNDNOTE ---
R 5TH TOE (LATERAL)
--- NOTE | 2024-12-01 15:39 | WOUNDNOTE ---
L 2ND TOE
--- NOTE | 2024-12-01 15:39 | WOUNDNOTE ---
L 2ND TOE (PLANTAR TIP)
--- NOTE | 2024-12-01 15:40 | WOUNDNOTE ---
[facility] RN note: Patient admitted with sepsis, pneumonia, pleural effusion. s/p thoracentesis. Patient admitted from [facility].
See H&P for complete history.
PMH: , Last month hospitalization with sepsis/UTI, gangrenous toes (R>L), she follows a vascular surgeon from [place] and plan is eventual amputation, sacral pressure injury, ESRD on HD, C diff, UTI, CAD, PAD, CHF, HTN, DM, anemia, PTCA with
stents, CABG, L 3rd toe amp, IR catheter, defibrillator, former smoker.
Wound Location and type/assessment: Patient admitted with: Dry gangrenous toe ulcers all toes R foot, L plantar 2nd toe, dry gangrene ulcers R plantar forefoot and bilateral heels DTI/dry necrosis d/t PAD. Pedal pulses heard faintly via portable
Doppler. Sacral/coccyx/buttocks red areas with center sacral small dimple vs scar. L perdomo with dry scabbed abrasion. Small bruises. Arm small dry tear.
Appetite: good.
Pressure redistribution devices in place: Centrella Max air bed. She cannot turn herself in bed currently.
Plan: Betadine applied to gangrene on toes bilateral, R plantar forefoot. Betadine and foam dressing applied to heels. Silicone border foam changed on sacrum after josé miguel care given (patient incontinent of moderate loose dark brown stool. Patient
turned to R semi side lying position with help from CHAMP Haque. Heels off bed with pillow and air chair cushion. t/c SPD and ordered TruVGeospiza lite heel relief boots. L upper ear crease mild red from o2 use (soft type o2 tubing being used).
Updated and confirmed orders with Dr. Heredia and discussed with CHAMP Haque.
Care plan to be updated and will follow as needed. Patient to follow up with her vascular surgeon.
Note to case management of equipment requested for discharge: Air mattress at [facility] if not already in place.
Recommend follow up at wound care center upon discharge if needed.
[2024-12-01 15:47] LABS: Body Fluid Second Tech HB
[2024-12-01] MEDS: TYLENOL 650 MG PO (16:35)
[2024-12-01] MEDS: FEOSOL 325 MG PO (16:36)
--- NOTE | 2024-12-01 16:37 | WOUNDNOTE ---
[facility] RN note: [place] texted Dr. Heredia re: patient's L heel DTI new since last admission besides chronic R heel dry necrotic ulcer. Paient's dry gangrenous toes look the same. Pedal pulses barely audible via portable Doppler. Hospitalist's approved
wound care, air mattress and heel pressure relief measures (including soft heel relief boots as tolerated). Patient with known severe PAD. Care plan updated. Will follow as needed.
--- NOTE | 2024-12-01 16:37 | W.PN.NEPH.HD ---
Assessment
-
Pt seen on HD. no complaints. VSS, access ok
Progress Note - Hemodialysis
-
Date of Service: December 01, 2024
Duration: 30 minutes and 3 hours
Potassium Bath: 2
Calcium Bath: 2.5
Opti-Dialyzer: 160
Ultrafiltration: Other (2kg)
Blood Flow: 400
Dialysate Flow: 600
Heparin: 0
EPO: 15834 units
--- NOTE | 2024-12-01 16:43 | PTCARENOTE ---
Returned from [facility], bandaid intact to left back. WOC assessed on arrival. Currently with son Marquez yelling out to help her- she wants to be pulled up - completed that and she says it again, then yells at her for not doing it. PRN Atarax given
again along with PO Tylenol- will monitor effect as her pain is 10/10- will give Dilaudid after she eats if needed.
[2024-12-01] MEDS: NOVOLOG FLEXPEN-MODERATE RESISTANCE 1 UNITS SC (16:52)
[2024-12-01 17:01] LABS: Glucose - Point of Care 185 mg/dl (70-99)
[2024-12-01] MEDS: LIPITOR 40 MG PO (20:38)
[2024-12-01] MEDS: HEPARIN 5000 UNITS SC (20:38)
[2024-12-01] MEDS: ZETIA 10 MG PO (20:38)
[2024-12-01] MEDS: LOPRESSOR PO (20:38)
--- NOTE | 2024-12-01 21:25 | CS.PSYCHR ---
Consult Summary - Psychiatry
-
Asked to see patient for psychiatric consultation Patient declined to be interviewed, stated that she had no need. Pt told to let staff know if she changes her mind; Please contact if further assistance needed.
[2024-12-01 21:47] LABS: Glucose - Point of Care 281 mg/dl (70-99)
[2024-12-01] MEDS: LANTUS 0.1 UNITS SC (22:11)
[2024-12-01] MEDS: STERILE WATER FOR INJECTION IV (22:24)
--- NOTE | 2024-12-01 23:08 | PTCARENOTE ---
patient bp running low, 80s/50 to 90s/50s. TT [employer], midodrine ordered, see apr. Bp after dose of midodrine was 101/47. continuing to monitor. call monet in reach.
[2024-12-02] VITALS (16 sets, daily range): BP systolic 84–114; BP diastolic 44–85; BMI 22.6
[2024-12-02] MEDS: FIRVANQ 125 MG PO ×4 (00:17→17:01)
[2024-12-02 00:49] LABS: Hematocrit 24.1 % (37.0-47.0); Hemoglobin 7.4 g/dL (12.0-16.0)
--- NOTE | 2024-12-02 08:04 | PN.CDI ---
Addendum entered and electronically signed by Liu Heredia MD 12/02/24 08:22:
Chronic combined systolic and diastolic heart failure
Original Note:
CDI
- -
CDI:
Physician Documentation Request
Admit Date: 11/29/24 13:12
Dear Doctor Yan,
Please review the following and provide your response in the progress notes.
Clinical Indicators:
- 12/01 Pulmonary 'Acute on chronic heart failure with reduced ejection fraction'
- 'shortness of breath is primarily related to pulmonary edema, volume overload as well as pleural effusions'
- 12/01 PN 'Chronic combined systolic and diastolic heart failure'
- 'Currently compensated'
- Patient ERSD on HD
- 12/01 Thoracentesis - 900ml removed
- 10/28/24 Echo EF 25-30%
In an attempt to clarify potentially conflicting documentation, please clarify the acuity and type of heart failure
Acute on chronic HFrEF
Chronic combined systolic and diastolic heart failure
Other (please specify)
Use of terms such as suspected, likely, concern for, or probable (associated with a specific diagnosis that is being evaluated, monitored, or treated as if it exists) are acceptable and can be coded in the inpatient setting, when documented at the
time of discharge.
Thank you,
Varun Hamilton RN
CDI Specialist
Please use your independent medical judgment in providing your response.
[2024-12-02] MEDS: HEPARIN 5000 UNITS SC ×2 (08:28→19:32)
[2024-12-02] MEDS: PLAVIX 75 MG PO (08:29)
[2024-12-02] MEDS: LANTUS 0.15 UNITS SC (08:29)
[2024-12-02] MEDS: ASPIR LOW (ENTERIC COATED) 81 MG PO (08:29)
[2024-12-02] MEDS: LOPRESSOR 12.5 MG PO (08:29)
[2024-12-02] MEDS: THERAGRAN 1 TABLET PO (08:29)
[2024-12-02] MEDS: FLORASTOR 250 MG PO ×2 (08:29→19:32)
[2024-12-02] MEDS: NOVOLOG FLEXPEN-MODERATE RESISTANCE 5 UNITS SC (08:30)
[2024-12-02 08:36] LABS: Glucose - Point of Care 267 mg/dl (70-99)
--- NOTE | 2024-12-02 09:34 | W.PN.HOSP.TC ---
Today's Communication/Plan
-
.
Assessment / Plan
Assessment / Plan
Physical exam:
General: No Apparent respiratory Distress, chronically ill-appearing, agitated and screaming at times if touched. Getting HD.
HEENT: Normocephalic, dry mucous membranes, Atraumatic
Respiratory: Scattered rhonchi bilaterally, decreased breath sounds at the left base, Non Labored Respirations
Cardiac: S1/S2 and Regular Rhythm; No Rub or Gallop, right chest PermCath
GI: Soft, normal bowel sounds
Musculoskeletal: No Edema, right second toe dry gangrene
Skin: Warm and dry, pale, chronic R heel dry necrotic ulcer. dry gangrenous toes R>L, L heel DTI
: No Damon
Neuro: Awake, alert, followed simple commands.
Psych: calm.
Ms. Juárez is a 59-year-old female with significant medical issues for age including ischemic cardiomyopathy with combined systolic and diastolic heart failure (LVEF 25 to 30%, AICD placed 09/17/2024), cardiogenic syncopes due to second-degree heart
block (pacemaker placed 11/03/2024), CAD (CABG x 4, PCI with 3 stents), ESRD, anemia of chronic disease, PAD (right second toe dry gangrene), and COPD who presented with shortness of breath and confusion. She had a recent hospitalization for
treatment of sepsis secondary to pneumonia and C. difficile colitis. In the ED today she was afebrile, hypotensive and dyspneic. Her oxygen saturation remained stable in the mid 90s. Labs were significant for leukocytosis of 21,000, anemia with a
hemoglobin of 7.4 (consistent with her baseline), lactic acid of 2.7, and a creatinine of 2.6 (consistent with a baseline with ESRD). Chest imaging showed multifocal pneumonia and bilateral pleural effusions left greater than right. She was
started on antibiotics, given gentle IV fluids and admitted for further evaluation and management.
#Sepsis POA / septic shock secondary to pneumonia:
Lactic acidosis, resolved
CT showed : Multifocal pneumonia with extensive airspace opacities throughout the right perihilar lung and to a lesser degree the left perihilar lung. There are associated small/moderate pleural effusions, more pronounced on the left.
- Continue antibiotics with cefepime for short course
- Cultures of urine & blood negative to date, MRSA screen negative
Negative COVID & Flu
known to have severe C Diff, on prophylactic oral vancomycin
- IR consult for thoracentesis, s/p successful ultrasound-guided thoracentesis, yielding 900 cc of clear gold pleural fluid on 12/01 by IR.
Appreciate pulmonary & IR help
-
#TME
Mentations is better
less agitated today
Per daughter, mentation cognitive infection have been fluctuating for a while. She had workup in [facility] and did not show acute findings
She refused to see psych.
Per daughter, using Atarax for anxiety at home
#Anemia of chronic disease requiring transfusions:
- Symptomatic anemia likely contributing to overall weakness
- Hemoglobin 6.3 this morning below usual low baseline in the setting of end-stage renal disease
- s/p transfusing 1 unit PRBCs
Hyponatremia
Septic shock POA with Hypotension:
Resolved.
On Midodrine
Chronic combined systolic and diastolic heart failure
- Currently compensated
- LVEF 25 to 30%
- ICD in place
- Not on afterload reducing agents due to hypotension
- Will continue beta-blockade with low-dose metoprolol to tartrate with holding parameters for hypotension, hold home low-dose carvedilol
Unable to advance GDMT due to hypotension
ESRD:
- Via right chest PermCath
- Nephrology following, planning dialysis tomorrow 12/01
- Midodrine for hypotension
IDDM:
- Continue Lantus 15 units in the morning and 10 units at night
- Additional sliding scale as needed
- Hemoglobin A1c 6.2%
Dry gangrene, right second toe:
- Secondary to peripheral vascular disease
- Plans for eventual amputation
- Continue local wound care as needed
- Continue aspirin and Plavix, high intensity statin
DVT prophylaxis: Subcu heparin
CODE STATUS: Full code
Total time spent to see the patient, examined the patient, review data and lab result, discuss treatment plan with patient, nursing staff, daughter, consultants around 55 minutes
Anticipated Discharge: 24 - 48 hours
Subjective/Interval History
-
Date of Service: December 02, 2024
No agitation
pt denies chest pain or abdominal pain
Objective Data
-
Labs:
Laboratory Results
12/02/24 12/02/24 12/02/24
00:41 05:20 06:00
WBC Cancelled
Hgb 7.4 L Cancelled
Hct 24.1 L Cancelled
Plt Count Cancelled
Sodium Pending
Potassium Pending
Chloride Pending
Carbon Dioxide Pending
BUN Pending
Creatinine Pending
Glucose Pending
Calcium Pending
Total Bilirubin Pending
AST Pending
ALT Pending
Alkaline Phosphatase Pending
12/02/24
06:04
WBC Pending
Hgb Pending
Hct Pending
Plt Count Pending
Sodium
Potassium
Chloride
Carbon Dioxide
BUN
Creatinine
Glucose
Calcium
Total Bilirubin
AST
ALT
Alkaline Phosphatase
Vital Signs:
Vital Signs
Temp Pulse Resp BP Pulse Ox
98.5 F 59 13 106/51 100
12/02/24 07:30 12/02/24 06:00 12/02/24 06:00 12/02/24 06:00 12/02/24 06:00
I&O
12/01/24 12/02/24 12/03/24
06:59 06:59 06:59
Intake Total 620 / 620 560 / 560
Output Total 0 / 0
Balance 620 / 620 560 / 560
--- NOTE | 2024-12-02 11:56 | PTOTSP ---
Reviewed chart and attempted to see pt. Pt was supine in bed [id number]. Family was present and stated pt was not participating in therapy at [facility] and staff used [facility] lift to get her OOB. Pt declined offer of P.T. activity today. P.T. will sign off.
--- NOTE | 2024-12-02 11:58 | W.PN.NEPH.PH ---
Today's Communication / Plan
-
HD tomorrow
Assessment/Plan
-
Impression
End-stage renal disease Sunday at [place] [facility]
Presentation with multi focal pneumonia/leukocytosis/encephalopathy
Sepsis
Encephalopathy
Persistent pleural effusion
Anemia
History of ischemic cardiomyopathy with EF of 25 to 30%
Status post pacemaker on 11/03/2024
History of coronary artery disease\\coronary artery disease\\CABG x 4\\multiple stenting procedures
History of peripheral vascular disease
Insulin requiring diabetes
History of recent C. difficile colitis October 2024 admission (no current active symptoms)
History of dry gangrene right second toe
Plan:
HD tomorrow
continue low dose midodrine
Cefepime renally dosed for PNA
-
-
Date of Service: December 02, 2024
CC / HPI / ROS
-
Chief Complaint:
ESRD
History of Present Illness:
ESRD Sunday
Hemodynamically labile
tolerated HD yesterday
refusing treatments/examine
Review of Systems:
No fever
No chest pain
Labs
-
Labs:
eGFR 10.54 12/01/24 08:05
Physical Exam
-
Vital Signs:
Vital Signs
Temp Pulse Resp BP Pulse Ox
97.8 F 72 14 111/53 96
12/02/24 11:16 12/02/24 08:00 12/02/24 08:00 12/02/24 08:00 12/02/24 08:45
[2024-12-02] MEDS: MAXIPIME 1000 MG IV ×2 (12:06→22:09)
[2024-12-02] MEDS: STERILE WATER FOR INJECTION 10 ML IV ×2 (12:06→22:09)
[2024-12-02] MEDS: DILAUDID 0.25 MG IV ×3 (12:07→20:51)
[2024-12-02] MEDS: NOVOLOG FLEXPEN-MODERATE RESISTANCE 1 UNITS SC (12:11)
[2024-12-02 12:21] LABS: Glucose - Point of Care 186 mg/dl (70-99)
--- NOTE | 2024-12-02 14:38 | W.PN.PUL3 ---
Today's Communication / Plan
-
- Follow-up on pleural fluid cultures
- Recommend no more than 5 days of antibiotics
Assessment
-
Patient is a 59-year-old female with known history of severe ischemic cardiomyopathy with LVEF 25 to 30%, s/p AICD as well as end-stage renal disease on hemodialysis who presented to the hospital with shortness of breath as well as altered mental
status. Patient recently was admitted with sepsis related to pneumonia complicated by C. difficile colitis. In the ED patient was afebrile but noted to have low blood pressure and shortness of breath. Imaging was suggestive of multifocal
infiltrate, elevated WBC count as well as suspected bilateral pleural effusions, left more than right. Pulmonary consultation was requested for further input.
During my evaluation, patient upset and declined any interview. History was mostly obtained from patient chart as well as discussion with patient's daughter at bedside. Patient also declined detailed exam and I was only able to do a limited
physical exam.
#1. Shortness of breath
- Suspect patient's shortness of breath is primarily related to pulmonary edema, volume overload as well as pleural effusions. Quite improved after thoracentesis, currently saturating well on room air
- Suspect underlying heart failure and ESRD primarily contributing to symptoms
- WBC count elevated however no fever or significant cough or expectoration reported. Pneumonia versus compressive atelectasis due to volume overload both are in differential diagnosis
- No wheezing on exam. Remote smoking history, not on any inhalers at baseline. Doubt significant underlying COPD/Emphysema
#2. Suspect multifocal pneumonia with sepsis
- Differential diagnosis include both multifocal pneumonia versus pulmonary edema, volume overload as well as compressive atelectasis due to pleural effusions
- Post-thoracentesis chest x-ray with significantly improved left-sided opacity more suggestive of compressive atelectasis rather than true pneumonia
- Persistent right lower lobe opacity, again differential diagnosis include atelectasis, pneumonia, compressive atelectasis due to small pleural effusion and volume overload
- Multiple prior rounds of antibiotics for suspected pneumonia. With prior history of C. difficile colitis, will favor only 5 days of antibiotic.
- Pleural fluid analysis suggestive of transudative etiology. Follow-up on cultures.
#3. Pleural effusions.
- Left greater than right. S/p IR guided thoracentesis on left side on 12/01
- Pleural fluid studies suggestive of transudative. Unlikely empyema/parapneumonic effusion.
- Suspect effusions are related to underlying congestive heart failure as well as end-stage renal disease.
#4. Acute on chronic heart failure with reduced ejection fraction, pulmonary edema, LVEF 25 to 30%
- Patient makes minimal urine
- Continue volume removal as able with hemodialysis, nephrology service on case
Other medical diagnoses:
- History of C. difficile colitis, currently on p.o. vancomycin prophylactically
- Anemia of renal disease
- Diabetes mellitus
- Hypertension
- End-stage neural disease on hemodialysis
- Coronary artery disease, s/p coronary artery bypass graft
- History of PCI, December 2022, in-stent restenosis 05/2024
- Ischemic cardiomyopathy, EF 25%, s/p Pacemaker, ICD placement 09/2024
- Prior history of smoking
Total time spent on this consultation/encounter _35__ minutes which includes review of history, physical exam, medications, laboratory data, personal review of imaging, extensive review of outpatient records, discussion with care team and
respiratory therapy.
Updated daughter at bedside
Data:
CT C/A/P 11/2024: 1. Multifocal pneumonia with extensive airspace opacities throughout the right perihilar lung and to a lesser degree the left perihilar lung. There are associated small/moderate pleural effusions, more pronounced on the left.
2. There is mild circumferential urinary bladder wall thickening which can be seen with cystitis.
3. Mild renal atrophy.
ECHO 10/2024: 1. Technically difficult study.
2. Ejection fraction is 25-30% by volumetric assesment.
3. Stage III diastolic dysfunction suggestive of restricted filling pattern and increased filling pressures.
4. Global hypokinesis with possible septal dyskinesis.
5. Left ventricular cavity size is 5.75 cm which is mildly increased.
6. Moderate mitral valve regurgitation.
7. Pleural effusion is noted.
Subjective Data
-
Date of Service:
Date of Service: December 02, 2024
Subjective:
Comfortably sitting in bed in no acute distress. Saturating well on room air.
Review of Systems
Genitourinary: Other (No new symptoms reported)
Objective Data
Data Reviewed
Vital Signs / I&O / Oxygen:
Vital Signs
Temp Pulse Resp BP Pulse Ox
97.8 F 72 14 111/53 96
12/02/24 11:16 12/02/24 08:00 12/02/24 08:00 12/02/24 08:00 12/02/24 08:45
Intake and Output
12/01/24 12/02/24 12/03/24
06:59 06:59 06:59
Intake Total 620 / 620 560 / 560
Output Total 0 / 0
Balance 620 / 620 560 / 560
SaO2 96
Nasal Cannula flow liters per 3
minute
Physical Exam
General: Comfortable
HEENT: Normocephalic
Cardiovascular: S1-S2
Respiratory: Clear and Other (Left-sided air entry improved)
GI: Soft and Non Distended
Neurology: Awake and Alert
Skin: Warm
Labs/Micro/Reports
Microbiology
12/01/24 14:40 Pleural Fluid Body Fluid Culture - Preliminary
No Growth After 18-24 Hours
12/01/24 14:40 Pleural Fluid Gram Stain - Preliminary
11/29/24 09:40 Blood/Venous Blood Culture - Preliminary
No Growth in 72 hours- Final report to follow
11/30/24 04:41 Nose MRSA Screen - Final
No Methicillin Resistant Staphylococcus aureus isolated.
11/29/24 10:59 Urine Urine Culture - Final
[2024-12-02] MEDS: NOVOLOG FLEXPEN-MODERATE RESISTANCE SC (17:01)
[2024-12-02] MEDS: FEOSOL 325 MG PO (17:01)
[2024-12-02 17:11] LABS: Glucose - Point of Care 104 mg/dl (70-99)
--- NOTE | 2024-12-02 18:08 | PTCARENOTE ---
PRN IV Dilaudid given x2 this shift for 9/10 pain intermittently buttocks, feet, back, etc...Wound care provided buttocks, feet. Fiber boots applied. AAOx2 pleasant with this RN today. Cries out on occasion when alone. Emotional support
provided. Appetite good, Accu checks noted. Remains on 2L NC- intermittently c/o sob when off o2- pox 90s-100%. SR with PVCs on tele sometimes freq, bigeminy or couplets. BP 100s/50s. Anuric, has been incontinent of stool x2 this shift.
[2024-12-02] MEDS: LIPITOR 40 MG PO (19:32)
[2024-12-02] MEDS: ZETIA 10 MG PO (19:32)
[2024-12-02] MEDS: LOPRESSOR PO (19:33)
[2024-12-02] MEDS: ATARAX 50 MG PO (19:33)
[2024-12-02 21:24] LABS: Glucose - Point of Care 175 mg/dl (70-99)
[2024-12-02] MEDS: LANTUS 0.1 UNITS SC (22:09)
[2024-12-03] VITALS (36 sets, daily range): BP systolic 87–134; BP diastolic 46–111; BMI 22.6
[2024-12-03] MEDS: FIRVANQ 125 MG PO ×4 (01:25→17:34)
[2024-12-03 07:13] LABS: Glucose - Point of Care 117 mg/dl (70-99)
[2024-12-03] MEDS: NOVOLOG FLEXPEN-MODERATE RESISTANCE SC ×3 (09:12→16:52)
[2024-12-03] MEDS: PLAVIX 75 MG PO (09:18)
[2024-12-03] MEDS: FLORASTOR 250 MG PO ×2 (09:19→20:29)
[2024-12-03] MEDS: LOPRESSOR 12.5 MG PO ×2 (09:19→20:28)
[2024-12-03] MEDS: THERAGRAN 1 TABLET PO (09:19)
[2024-12-03] MEDS: HEPARIN 5000 UNITS SC ×2 (09:19→20:29)
[2024-12-03] MEDS: ASPIR LOW (ENTERIC COATED) 81 MG PO (09:19)
[2024-12-03] MEDS: LANTUS 0.15 UNITS SC (09:20)
--- NOTE | 2024-12-03 09:21 | W.PN.PUL3 ---
Today's Communication / Plan
-
- Can switch to PO Omnicef, complete 5 days of antibiotics
- Discharge planning
- Pulmonary team will sign off, please call as needed.
Assessment
-
Patient is a 59-year-old female with known history of severe ischemic cardiomyopathy with LVEF 25 to 30%, s/p AICD as well as end-stage renal disease on hemodialysis who presented to the hospital with shortness of breath as well as altered mental
status. Patient recently was admitted with sepsis related to pneumonia complicated by C. difficile colitis. In the ED patient was afebrile but noted to have low blood pressure and shortness of breath. Imaging was suggestive of multifocal
infiltrate, elevated WBC count as well as suspected bilateral pleural effusions, left more than right. Pulmonary consultation was requested for further input.
During my evaluation, patient upset and declined any interview. History was mostly obtained from patient chart as well as discussion with patient's daughter at bedside. Patient also declined detailed exam and I was only able to do a limited
physical exam.
#1. Shortness of breath
- Suspect patient's shortness of breath was primarily related to pulmonary edema, volume overload as well as pleural effusions. Quite improved after thoracentesis, currently saturating well on room air
- Suspect underlying heart failure and ESRD primarily contributing to symptoms
- WBC count elevated however no fever or significant cough or expectoration reported. Pneumonia versus compressive atelectasis due to volume overload both are in differential diagnosis
- No wheezing on exam. Remote smoking history, not on any inhalers at baseline. Doubt significant underlying COPD/Emphysema
#2. Suspect multifocal pneumonia with sepsis
- Differential diagnosis include both multifocal pneumonia versus pulmonary edema, volume overload as well as compressive atelectasis due to pleural effusions
- Post-thoracentesis chest x-ray with significantly improved left-sided opacity more suggestive of compressive atelectasis rather than true pneumonia
- Persistent right lower lobe opacity, again differential diagnosis include atelectasis, pneumonia, compressive atelectasis due to small pleural effusion and volume overload
- Multiple prior rounds of antibiotics for suspected pneumonia. With prior history of C. difficile colitis, will favor only 5 days of antibiotic.
- Pleural fluid analysis suggestive of transudative etiology. Follow-up on cultures. Pleural fluid cytology also negative.
#3. Pleural effusions.
- Left greater than right. S/p IR guided thoracentesis on left side on 12/01
- Pleural fluid studies suggestive of transudative. Unlikely empyema/parapneumonic effusion.
- Suspect effusions are related to underlying congestive heart failure as well as end-stage renal disease.
#4. Acute on chronic heart failure with reduced ejection fraction, pulmonary edema, LVEF 25 to 30%
- Patient makes minimal urine
- Continue volume removal as able with hemodialysis, nephrology service on case
Other medical diagnoses:
- History of C. difficile colitis, currently on p.o. vancomycin prophylactically
- Anemia of renal disease
- Diabetes mellitus
- Hypertension
- End-stage neural disease on hemodialysis
- Coronary artery disease, s/p coronary artery bypass graft
- History of PCI, December 2022, in-stent restenosis 05/2024
- Ischemic cardiomyopathy, EF 25%, s/p Pacemaker, ICD placement 09/2024
- Prior history of smoking
Total time spent on this consultation/encounter _38__ minutes which includes review of history, physical exam, medications, laboratory data, personal review of imaging, extensive review of outpatient records, discussion with care team and
respiratory therapy.
Updated daughter at bedside
Data:
CT C/A/P 11/2024: 1. Multifocal pneumonia with extensive airspace opacities throughout the right perihilar lung and to a lesser degree the left perihilar lung. There are associated small/moderate pleural effusions, more pronounced on the left.
2. There is mild circumferential urinary bladder wall thickening which can be seen with cystitis.
3. Mild renal atrophy.
ECHO 10/2024: 1. Technically difficult study.
2. Ejection fraction is 25-30% by volumetric assesment.
3. Stage III diastolic dysfunction suggestive of restricted filling pattern and increased filling pressures.
4. Global hypokinesis with possible septal dyskinesis.
5. Left ventricular cavity size is 5.75 cm which is mildly increased.
6. Moderate mitral valve regurgitation.
7. Pleural effusion is noted.
Subjective Data
-
Date of Service:
Date of Service: December 03, 2024
Subjective:
Comfortably lying in bed in no acute distress.
Review of Systems
Genitourinary: Other (No new symptoms reported)
Objective Data
Data Reviewed
Vital Signs / I&O / Oxygen:
Vital Signs
Temp Pulse Resp BP Pulse Ox
98.1 F 65 13 114/52 100
12/03/24 06:58 12/03/24 06:00 12/03/24 06:00 12/03/24 06:00 12/03/24 00:00
Intake and Output
12/02/24 12/03/24 12/04/24
06:59 06:59 06:59
Intake Total 560 / 560 480 / 480 480 / 480
Balance 560 / 560 480 / 480 480 / 480
SaO2 100
Nasal Cannula flow liters per 2
minute
Physical Exam
General: Comfortable
HEENT: Normocephalic
Cardiovascular: S1-S2
Respiratory: Clear and Other (Left-sided air entry improved)
GI: Soft and Non Distended
Neurology: Awake and Alert
Skin: Warm
Labs/Micro/Reports
Microbiology
12/01/24 14:40 Pleural Fluid Body Fluid Culture - Preliminary
No Growth After 18-24 Hours
12/01/24 14:40 Pleural Fluid Gram Stain - Preliminary
11/29/24 09:40 Blood/Venous Blood Culture - Preliminary
No Growth in 72 hours- Final report to follow
11/30/24 04:41 Nose MRSA Screen - Final
No Methicillin Resistant Staphylococcus aureus isolated.
11/29/24 10:59 Urine Urine Culture - Final
--- NOTE | 2024-12-03 09:38 | W.PN.HOSP.TC ---
Today's Communication/Plan
-
today is last day for cefepime, plan to discharge 12/04
Assessment / Plan
Assessment / Plan
Physical exam:
General: No Apparent respiratory Distress, chronically ill-appearing.
HEENT: Normocephalic, dry mucous membranes, Atraumatic
Respiratory: Scattered rhonchi bilaterally, decreased breath sounds at the left base, Non Labored Respirations
Cardiac: S1/S2 and Regular Rhythm; No Rub or Gallop, right chest PermCath
GI: Soft, normal bowel sounds
Musculoskeletal: No Edema, right second toe dry gangrene
Skin: Warm and dry, pale, chronic R heel dry necrotic ulcer. dry gangrenous toes R>L, L heel DTI
: No Damon
Neuro: Awake, alert, followed simple commands.
Psych: calm.
Ms. Juárez is a 59-year-old female with significant medical issues for age including ischemic cardiomyopathy with combined systolic and diastolic heart failure (LVEF 25 to 30%, AICD placed 09/17/2024), cardiogenic syncopes due to second-degree heart
block (pacemaker placed 11/03/2024), CAD (CABG x 4, PCI with 3 stents), ESRD, anemia of chronic disease, PAD (right second toe dry gangrene), and COPD who presented with shortness of breath and confusion. She had a recent hospitalization for
treatment of sepsis secondary to pneumonia and C. difficile colitis. In the ED today she was afebrile, hypotensive and dyspneic. Her oxygen saturation remained stable in the mid 90s. Labs were significant for leukocytosis of 21,000, anemia with a
hemoglobin of 7.4 (consistent with her baseline), lactic acid of 2.7, and a creatinine of 2.6 (consistent with a baseline with ESRD). Chest imaging showed multifocal pneumonia and bilateral pleural effusions left greater than right. She was
started on antibiotics, given gentle IV fluids and admitted for further evaluation and management.
#Sepsis POA / septic shock secondary to pneumonia:
Lactic acidosis, resolved
CT showed : Multifocal pneumonia with extensive airspace opacities throughout the right perihilar lung and to a lesser degree the left perihilar lung. There are associated small/moderate pleural effusions, more pronounced on the left.
- Continue antibiotics with cefepime for short course
- Cultures of urine & blood negative to date, MRSA screen negative
Negative COVID & Flu
known to have severe C Diff, on prophylactic oral vancomycin
- IR consult for thoracentesis, s/p successful ultrasound-guided thoracentesis, yielding 900 cc of clear gold pleural fluid on 12/01 by IR. Pleural fluid studies suggestive of transudative. Unlikely empyema/parapneumonic effusion. Suspect effusions
are related to underlying congestive heart failure as well as end-stage renal disease.
Appreciate pulmonary & IR help
-
#TME
Mentations is better
less agitated today
Per daughter, mentation cognitive infection have been fluctuating for a while. She had workup in [facility] and did not show acute findings
She refused to see psych. Family wants to also focus on making her comfortable, agreed to use pain medicine for pt's discomfort
Per daughter, using Atarax for anxiety at home
#Anemia of chronic disease requiring transfusions:
- s/p epoetin on 12/03
- Hemoglobin 6.3 below usual low baseline in the setting of end-stage renal disease
- s/p transfusing 1 unit PRBCs
#Hyponatremia
#Septic shock POA with Hypotension:
Resolved.
On Midodrine
Chronic combined systolic and diastolic heart failure
- Currently compensated
- LVEF 25 to 30%
- ICD in place
- Not on afterload reducing agents due to hypotension
- Will continue beta-blockade with low-dose metoprolol to tartrate with holding parameters for hypotension, hold home low-dose carvedilol
Unable to advance GDMT due to hypotension
ESRD:
- Via right chest PermCath
- Nephrology following, planning dialysis tomorrow 12/01
- Midodrine for hypotension
IDDM:
- Continue Lantus 15 units in the morning and 10 units at night
- Additional sliding scale as needed
- Hemoglobin A1c 6.2%
Dry gangrene, right second toe:
- Secondary to peripheral vascular disease
- Plans for eventual amputation as OP
- Continue local wound care as needed
- Continue aspirin and Plavix, high intensity statin
DVT prophylaxis: Subcu heparin
CODE STATUS: Full code
Total time spent to see the patient, examined the patient, review data and lab result, discuss treatment plan with patient, nursing staff, daughter, consultants around 55 minutes
Anticipated Discharge: Within 24 hours
Subjective/Interval History
-
Date of Service: December 03, 2024
no chest pain
no cough
Wants to keep Dilaudid as IV
Objective Data
-
Labs:
Laboratory Results
12/03/24
06:00
WBC Pending
Hgb Pending
Hct Pending
Plt Count Pending
Sodium Pending
Potassium Pending
Chloride Pending
Carbon Dioxide Pending
BUN Pending
Creatinine Pending
Glucose Pending
Calcium Pending
Total Bilirubin Pending
AST Pending
ALT Pending
Alkaline Phosphatase Pending
Vital Signs:
Vital Signs
Temp Pulse Resp BP Pulse Ox
98.1 F 65 13 114/52 100
12/03/24 06:58 12/03/24 06:00 12/03/24 06:00 12/03/24 06:00 12/03/24 00:00
I&O
12/02/24 12/03/24 12/04/24
06:59 06:59 06:59
Intake Total 560 / 560 480 / 480 480 / 480
Balance 560 / 560 480 / 480 480 / 480
[2024-12-03 11:30] LABS: Glucose - Point of Care 109 mg/dl (70-99)
[2024-12-03 12:19] LABS: Hematocrit 23.9 % (37.0-47.0); Hemoglobin 7.3 g/dL (12.0-16.0); Mean Corp Hgb Conc. 30.5 g/dL (33.0-37.0); Mean Corpuscular Volume 89.2 fL (81.0-99.0); Nucleated Red Blood Cells % 0 %; Platelet Count 373 10^3/uL (130-400); Red Cell Dist. Width 17.7 % (11.5-14.5)
[2024-12-03] MEDS: FLEXBUMIN 25% FOR HEMODIALYSIS 12.5 GRAMS IV ×2 (12:20→13:44)
[2024-12-03] MEDS: MANNITOL 25% 12.5 GRAMS IV ×2 (12:22→13:44)
[2024-12-03] MEDS: RETACRIT 10000 UNITS IV (12:24)
[2024-12-03 12:32] LABS: ALT (SGPT) 18 U/L (0-35); AST (SGOT) 23 U/L (14-36); Albumin 3.2 g/dl (3.5-5.0); Alkaline Phosphatase 114 U/L (38-126); Blood Urea Nitrogen 38 mg/dl (7-17); Calcium 8.8 mg/dl (8.4-10.2); Carbon Dioxide 28 mmol/L (22-30); Chloride 96 mmol/L (98-107); Estimated Creatinine Clearance 13 ml/min; Glucose 77 mg/dl (70-99); Potassium 3.7 mmol/L (3.5-5.1); Sodium 134 mmol/L (135-145); Total Protein 6.8 g/dl (6.3-8.2); eGFR 10.27
--- NOTE | 2024-12-03 13:09 | W.PN.NEPH.HD ---
Assessment
-
pt seen during HD
vitals stable
looks like lost dry wt during stay here with PNA
lowered EDW
wean o2 as possible
high dose HEIDI for anemia
CVC functions fine
noted d/c tomorrow after abx today
Progress Note - Hemodialysis
-
Date of Service: December 03, 2024
Duration: 30 minutes and 3 hours
Potassium Bath: 2
Calcium Bath: 2.5
Opti-Dialyzer: 160
Ultrafiltration: Other (1.5kg)
Blood Flow: 400
Dialysate Flow: 600
Heparin: no
EPO: [id number]
[2024-12-03] MEDS: STERILE WATER FOR INJECTION 10 ML IV (14:56)
[2024-12-03] MEDS: MAXIPIME 1000 MG IV (14:56)
[2024-12-03] MEDS: HEPARIN 3200 UNITS INTRACATH (15:17)
--- NOTE | 2024-12-03 15:50 | PTCARENOTE ---
Addendum entered by Kacy Tellez RN 12/03/24 15:56:
Spoke with Dr Almeida by phone; she will enter and order valium.
Original Note:
Assumed care of patient at beginning of this shift from previous RN. Patient periodically yelling out, but was able to be redirected. She stated earlier she did not realize she was yelling. During HD, patient began to yell out more; now paranoid,
agitated and yelling out. She refused atarax. TT sent to Dr Heredia but no response/not read. TT sent to Dr Almeida, hospitalist for house coverage who responded she is reviewing patient's chart. Await further orders/instructions.
[2024-12-03] MEDS: VALIUM INJECTION 2 MG IV (16:09)
--- NOTE | 2024-12-03 16:09 | CM ---
F/U: Patient is getting last day of Abx and plan is to discharge on 12/04 so sent updates to [place]. PLAN: Return to [facility] [facility].
[2024-12-03 17:02] LABS: Glucose - Point of Care 98 mg/dl (70-99)
[2024-12-03] MEDS: FEOSOL 325 MG PO (17:34)
--- NOTE | 2024-12-03 18:16 | PTCARENOTE ---
Valium given as per order. Dr Heredia returned TT and aware of patient's agitation. Daughter at bedside; patient remains confused but pleasant now and easily redirected.
[2024-12-03] MEDS: ZETIA 10 MG PO (20:29)
[2024-12-03] MEDS: LIPITOR 40 MG PO (20:29)
[2024-12-03] MEDS: DILAUDID 0.25 MG IV (21:28)
[2024-12-03 22:16] LABS: Glucose - Point of Care 231 mg/dl (70-99)
[2024-12-03] MEDS: LANTUS 0.1 UNITS SC (22:24)
[2024-12-04] VITALS (18 sets, daily range): BP systolic 108–141; BP diastolic 41–112
[2024-12-04] MEDS: MAXIPIME 1000 MG IV (00:05)
[2024-12-04] MEDS: STERILE WATER FOR INJECTION 10 ML IV (00:05)
[2024-12-04] MEDS: FIRVANQ 125 MG PO ×2 (00:14→12:19)
[2024-12-04] MEDS: DILAUDID 0.25 MG IV (01:09)
--- NOTE | 2024-12-04 06:00 | PTCARENOTE ---
Pt agitated, yelling out all throughout the night, refusing care at times. GAS PROCESSING PLANT OPERATOR notified. No new orders at this time. Pt does c/o pain, but unable to rate. PRN pain medication given per APR. Pt c/o nausea, refuses PO zofran. GAS PROCESSING PLANT OPERATOR notified. No new
orders at this time. Pt refuses PO firvanq at this time, but agrees to try again later. Bed alarm in place for pt safety, however pt has made no attempts. Care ongoing.
[2024-12-04] MEDS: ATARAX PO (07:45)
[2024-12-04] MEDS: FIRVANQ PO (07:56)
--- NOTE | 2024-12-04 07:56 | PTCARENOTE ---
Patient refusing morning lab work and oral vancomycin. MD Yan aware of refusal of care/intervention.
[2024-12-04 08:31] LABS: Glucose - Point of Care 114 mg/dl (70-99)
--- NOTE | 2024-12-04 09:00 | W.PN.HOSP.TC ---
Today's Communication/Plan
-
daughter agreed to go back to [place]
Will discharge if CT head no acute findings
Daughter wants hospice to call her first after discharge for possible OP hospice care.
Assessment / Plan
Assessment / Plan
Physical exam:
General: No Apparent respiratory Distress, chronically ill-appearing.
HEENT: Normocephalic, dry mucous membranes, Atraumatic
Respiratory: Scattered rhonchi bilaterally, decreased breath sounds at the left base, Non Labored Respirations
Cardiac: S1/S2 and Regular Rhythm; No Rub or Gallop, right chest PermCath
GI: Soft, normal bowel sounds
Musculoskeletal: No Edema, right second toe dry gangrene
Skin: Warm and dry, pale, chronic R heel dry necrotic ulcer. dry gangrenous toes R>L, L heel DTI
: No Damon
Neuro: Awake, alert, followed simple commands.
Psych: calm.
Ms. Juárez is a 59-year-old female with significant medical issues for age including ischemic cardiomyopathy with combined systolic and diastolic heart failure (LVEF 25 to 30%, AICD placed 09/17/2024), cardiogenic syncopes due to second-degree heart
block (pacemaker placed 11/03/2024), CAD (CABG x 4, PCI with 3 stents), ESRD, anemia of chronic disease, PAD (right second toe dry gangrene), and COPD who presented with shortness of breath and confusion. She had a recent hospitalization for
treatment of sepsis secondary to pneumonia and C. difficile colitis. In the ED today she was afebrile, hypotensive and dyspneic. Her oxygen saturation remained stable in the mid 90s. Labs were significant for leukocytosis of 21,000, anemia with a
hemoglobin of 7.4 (consistent with her baseline), lactic acid of 2.7, and a creatinine of 2.6 (consistent with a baseline with ESRD). Chest imaging showed multifocal pneumonia and bilateral pleural effusions left greater than right. She was
started on antibiotics, given gentle IV fluids and admitted for further evaluation and management.
#Sepsis POA / septic shock secondary to pneumonia:
Lactic acidosis, resolved
CT showed : Multifocal pneumonia with extensive airspace opacities throughout the right perihilar lung and to a lesser degree the left perihilar lung. There are associated small/moderate pleural effusions, more pronounced on the left.
- Continue antibiotics with cefepime for short course, finished after 5 days course.
- Cultures of urine & blood negative to date, MRSA screen negative
Negative COVID & Flu
known to have severe C Diff, on prophylactic oral vancomycin
- IR consult for thoracentesis, s/p successful ultrasound-guided thoracentesis, yielding 900 cc of clear gold pleural fluid on 12/01 by IR. Pleural fluid studies suggestive of transudative. Unlikely empyema/parapneumonic effusion. Suspect effusions
are related to underlying congestive heart failure as well as end-stage renal disease. Fluid culture is NGTD.
Appreciate pulmonary & IR help
-
#TME
Mentations is better
less agitated today
Per daughter, mentation cognitive infection have been fluctuating for a while. She had workup in [facility] and did not show acute findings
She refused to see psych. Family wants to also focus on making her comfortable, agreed to use pain medicine for pt's discomfort
Per daughter, using Atarax for anxiety at home
#Anemia of chronic disease requiring transfusions:
- s/p epoetin on 12/03
- Hemoglobin 6.3 below usual low baseline in the setting of end-stage renal disease
- s/p transfusing 1 unit PRBCs
Pt refuses blood work
#Hyponatremia
#Septic shock POA with Hypotension:
Resolved.
On Midodrine
Chronic combined systolic and diastolic heart failure
- Currently compensated
- LVEF 25 to 30%
- ICD in place
- Not on afterload reducing agents due to hypotension
- Will continue beta-blockade with low-dose metoprolol to tartrate with holding parameters for hypotension, held home low-dose carvedilol
Unable to advance GDMT due to hypotension
ESRD:
- Via right chest PermCath
- Nephrology following, planning dialysis tomorrow 12/01
- Midodrine for hypotension
IDDM:
- Continue Lantus 15 units in the morning and 10 units at night
- Additional sliding scale as needed
- Hemoglobin A1c 6.2%
Dry gangrene, right second toe:
- Secondary to peripheral vascular disease
- Plans for eventual amputation as OP
- Continue local wound care as needed
- Continue aspirin and Plavix, high intensity statin
DVT prophylaxis: Subcu heparin
CODE STATUS: Full code
# GOC
Discussed with daughter Silvia. She wants to keep her mother comfortable with pain control and discomfort. Daughter would like to pursue hospice care if no improvement and if patient continues with suffering and being uncomfortable with
continuing medical interventions like hemodialysis.
Patient noted to refuse blood work and verbalizing she did not want to continue hemodialysis at times. Daughter wants mother to go back to her place at senior care and to seek hospice care if she declines/does not thrive.
Total discharge time spent to see the patient, examined the patient, review data and lab result, discuss t discharge plan with patient, nursing staff, daughter, case liner, consultants around 55 minutes
Anticipated Discharge: Today
Subjective/Interval History
-
Date of Service: December 04, 2024
No fevers
No worsening hypoxia
Objective Data
-
Labs:
Laboratory Results
12/04/24
06:00
WBC Pending
Hgb Pending
Hct Pending
Plt Count Pending
Sodium Pending
Potassium Pending
Chloride Pending
Carbon Dioxide Pending
BUN Pending
Creatinine Pending
Glucose Pending
Calcium Pending
Total Bilirubin Pending
AST Pending
ALT Pending
Alkaline Phosphatase Pending
Vital Signs:
Vital Signs
Temp Pulse Resp BP Pulse Ox
98.6 F 71 17 128/56 96
12/03/24 22:50 12/04/24 06:00 12/04/24 06:00 12/04/24 05:45 12/04/24 05:45
I&O
12/03/24 12/04/24 12/05/24
06:59 06:59 06:59
Intake Total 480 / 480 720 / 720
Balance 480 / 480 720 / 720
[2024-12-04] MEDS: NOVOLOG FLEXPEN-MODERATE RESISTANCE SC (10:49)
[2024-12-04] MEDS: LANTUS 0.15 UNITS SC (12:00)
[2024-12-04] MEDS: LOPRESSOR 12.5 MG PO (12:02)
[2024-12-04] MEDS: ASPIR LOW (ENTERIC COATED) 81 MG PO (12:03)
[2024-12-04] MEDS: THERAGRAN 1 TABLET PO (12:03)
[2024-12-04] MEDS: PLAVIX 75 MG PO (12:03)
[2024-12-04] MEDS: HEPARIN SC (12:05)
[2024-12-04] MEDS: FLORASTOR 250 MG PO (12:06)
[2024-12-04] MEDS: NOVOLOG FLEXPEN-MODERATE RESISTANCE 1 UNITS SC (12:09)
[2024-12-04 12:20] LABS: Glucose - Point of Care 183 mg/dl (70-99)
--- NOTE | 2024-12-04 13:42 | W.PN.NEPH.PH ---
Today's Communication / Plan
-
ok for d/c
Assessment/Plan
-
Impression
End-stage renal disease Sunday at [facility]
Presentation with multi focal pneumonia/leukocytosis/encephalopathy
Sepsis
Encephalopathy
Persistent pleural effusion
Anemia
History of ischemic cardiomyopathy with EF of 25 to 30%
Status post pacemaker on 11/03/2024
History of coronary artery disease\\coronary artery disease\\CABG x 4\\multiple stenting procedures
History of peripheral vascular disease
Insulin requiring diabetes
History of recent C. difficile colitis October 2024 admission (no current active symptoms)
History of dry gangrene right second toe
Plan:
HD tomorrow if still here
continue low dose midodrine
completed abx
d/c plan
-
-
Date of Service: December 04, 2024
CC / HPI / ROS
-
Chief Complaint:
ESRD
History of Present Illness:
ESRD Sunday
Hemodynamically stable
tolerated HD yesterday
off O2
Review of Systems:
No fever
No chest pain
no n/v but dereased appetite
Labs
-
Labs:
eGFR 10.27 12/03/24 11:33
Physical Exam
-
Vital Signs:
Vital Signs
Temp Pulse Resp BP Pulse Ox
98.6 F 73 15 116/73 93
12/04/24 13:03 12/04/24 12:02 12/04/24 12:00 12/04/24 12:02 12/04/24 12:36
Cardiovascular:: Regular rate and rhythm
Respiratory:: Bilateral: CTA
Lung Excursion:: Normal
Abdomen:: Nontender and Soft
Extremity Edema:: None: Bilateral:
Damon Catheter: No
--- NOTE | 2024-12-04 13:46 | CM ---
F/U: Patient is ready so transport is arranged for 13:30. Hospitalist said that because she spoke to the daughter, that the daughter would want hospice consult back at [facility]. SUSI Myers informed the liaison Avirl then faxed over Hospice
order. Avirl is aware to only talk to daughter Silvia about Hospice.
Report: [phone]

IMM Completed PLAN: Return to [place] and perhaps onto hospice there at some point.
--- NOTE | 2024-12-04 13:52 | W.DCSUMMARY ---
Discharge Summary
Discharge Data
Date of Admission: 11/29/24
Date of Discharge: 12/04/24
-
Pending Results: No
Hospital Course
59 years old female presented to the ER with family to report trouble breathing and generalized unwell feeling/ could not get comfortable. No chest pain. Patient has been on dialysis for about 4 months via PermCath at [facility]. She had a
recent hospitalization for treatment of sepsis secondary to pneumonia and C. difficile colitis. Known severe CMP with PVD/PAD. Patient did not have fevers. Scan of the chest showed multiple focal pneumonia with pleural effusion. Patient was
evaluated by pulmonary doctor. Her shortness of breath was felt primarily to be related to pulmonary edema in addition combination of volume overload, compressive atelectasis, pleural effusion and multifocal pneumonia. Elevated procalcitonin could
be explained with underlying kidney failure. She had thoracentesis that showed pleural fluid analysis suggestive of transudative etiology. Culture of the fluid did not show bacterial growth. Patient was given 5 days course of intravenous
antibiotic. Prolonged antibiotic course was avoided due to history of severe C. difficile colitis. She was given prophylactic oral vancomycin. Patient responded well to pain control. She was giving Dilaudid which felt to be safer in hemodialysis
patient. She was noted to have agitation/cognitive impairment/confusion. Psychiatry was consulted but she refused to be evaluated by psychiatrist. Scan of the head did not show acute finding. Goal of care discussed with the daughter who wanted
to avoid making patient more uncomfortable or suffer. java development manager was consulted. Plan to meet with hospice in outpatient setting. Patient will go back to senior living where would be a familiar environment for her. Patient remained hemodynamic
stable. She was started on low-dose midodrine to tolerate dialysis without hypotension. Carvedilol was discontinued due to hypotension started on low-dose metoprolol to tartrate which she tolerated better. Medications related to goal-directed
therapy for heart failure were unable to fully introduce it due to hypotension. Patient remained hemodynamically stable and was discharged back to senior living in stable condition.
Discharge Plan
-
Patient Disposition: Long Term/SNF
Discharge Diagnosis/Procedures: -Acute shortness of breath was primarily related to pulmonary edema with combination of pulmonary atelectasis, multifocal pneumonia, volume overload as well as pleural effusions. Status post thoracentesis with good
improvement. Finish course of antibiotics.
-Chronic systolic heart failure, low blood pressure, started on Midodrine with low odose BB, Imdur.
-Toxic metabolic encephalopathy, patient approaching baseline
-Chronic pain syndrome, use Dilaudid as needed
- ESRD on HD
- Diabetes
- Severe peripheral vascular disease
- Ischemic cardiomyopathy/coronary disease
- Sick sinus syndrome
For OP hospice evaluation
Diet: As tolerated
Activity Restrictions/Additional Instructions:
Wound Care Instructions
Gangrene R toes and L 2nd toe, R plantar forefoot-swab with Betadine daily.
Bilateral Heel DTI/dry necrotic ulcer-swab with Betadine, foam dressing or ABD pad and stockinet, change daily.
Sacrum-clean with saline, silicone border foam, change q 3 days and prn loosened dressing.
Barrier ointment to josé miguel skin bid.
Air mattress
Elevate heels off bed with pillow and air chair cushion; alternate with soft heel relief boots if tolerated.
Pressure redistributing chair cushion (i.e. Air, Roho).
Follow up with your vascular surgeon.
Follow up with wound clinician or at wound care center call for an appointment.
Referrals:
Sina Hernandez MD [Family Provider, Family Practice]
Prescriptions:
New
midodrine 2.5 mg Tablet
2.5 mg PO TID@0800,1300,1800 Qty: 90 0RF
metoprolol tartrate 25 mg Tablet
12.5 mg PO BID Qty: 60 0RF
hydromorphone [Dilaudid] 2 mg tablet
2 mg PO Q4H PRN (Reason: moderate to severe pain) Qty: 10 0RF
Continued
atorvastatin [Lipitor] 40 mg Tablet
40 mg PO HS
sennosides [senna] 8.6 mg Tablet
17.2 mg PO HSPRN PRN (Reason: constipation)
acetaminophen [Tylenol] 325 mg Tablet
650 mg PO Q6HPRN PRN (Reason: mild pain)
insulin glargine 100 unit/mL Solution
15 unit SC DAILY
insulin glargine 100 unit/mL Solution
10 unit SC HS
polyethylene glycol 3350 [Miralax] 17 gram Powder In Packet
17 g PO DAILYPRN PRN (Reason: constipation)
ondansetron HCl 4 mg Tablet
4 mg PO Q8HPRN PRN (Reason: nasuea)
isosorbide mononitrate 30 mg Tablet Extended Release 24 Hr
30 mg PO SUTUTHSA@0800
therapeutic multivitamin Tablet
1 tab PO DAILY
melatonin 3 mg Tablet
3 mg PO HS
clopidogrel [Plavix] 75 mg Tablet
75 mg PO DAILY
aspirin 81 mg Tablet,Delayed Release (Dr/Ec)
81 mg PO DAILY
magnesium hydroxide [Milk of Magnesia] 400 mg/5 mL Suspension
2,400 mg PO HSPRN PRN (Reason: if no bm by 3rd day)
bisacodyl [Dulcolax (bisacodyl)] 10 mg Suppository
10 mg WA DAILYPRN PRN (Reason: if no bm aftr mom)
ferrous sulfate 325 mg (65 mg iron) Tablet
162.5 mg PO QPM
nitroglycerin [Nitrostat] 0.4 mg Tablet, Sublingual
0.4 mg SUBLINGUAL [id number] PRN (Reason: chest pains)
docusate sodium [Colace] 100 mg Capsule
100 mg PO BIDPRN PRN (Reason: constipation)
insulin lispro 100 unit/mL Insulin Pen
2 sliding scale dose SC ACHS
Rx Instructions:
201-2050=4units, 251-300=6units, 301-350=8units
ezetimibe [Zetia] 10 mg Tablet
10 mg PO HS
Saccharomyces boulardii [Florastor] 250 mg Capsule
250 mg PO BID
hydroxyzine pamoate 50 mg Capsule
50 mg PO QIDPRN PRN (Reason: anxiety)
Discontinued
oxycodone-acetaminophen 7.5-325 mg Tablet
1 tab PO Q6HPRN PRN (Reason: severe pain)
carvedilol 3.125 mg tablet
3.125 mg PO SuTuThSa@0800
Discharge Orders:
Discharge Patient (As Directed); Ordered 12/04/24
Ordered By: Liu Heredia
Discharge Date and Time
Print Language: [id number]
== END 2024-12-04 14:18 | DRG 871 ==
LOC: IMU 13:12
PROVIDERS: Clinical Nurse Specialist Family Health; Internal Medicine; Nurse Practitioner Family; Radiology Vascular & Interventional Radiology; Registered Nurse; Specialist; ADMITTING PHYSICIAN Internal Medicine; ATTENDING PHYSICIAN Internal Medicine; CONSULT PHYSICIAN Specialist; EMERGENCY PHYSICIAN Emergency Medicine; FAMILY PHYSICIAN Family Medicine; OTHER PHYSICIAN Internal Medicine; OTHER PHYSICIAN Psychiatry & Neurology Psychiatry
PROC: 30233N1 Transfusion of Nonautologous Red Blood Cells into Peripheral Vein, Percutaneous Approach (ICD-10-PCS; 2024-11-30)
PROC: 5A1D70Z Performance of Urinary Filtration, Intermittent, Less than 6 Hours Per Day (ICD-10-PCS; 2024-12-01)
PROC: 0W9B3ZZ Drainage of Left Pleural Cavity, Percutaneous Approach (ICD-10-PCS; 2024-12-01)
DX: A41.9 Sepsis, unspecified organism (principal); G92.8 Other toxic encephalopathy; I50.43 Acute on chronic combined systolic (congestive) and diastolic (congestive) heart failure; J18.9 Pneumonia, unspecified organism; R65.21 Severe sepsis with septic shock; N18.6 End stage renal disease; J44.0 Chronic obstructive pulmonary disease with (acute) lower respiratory infection; E87.1 Hypo-osmolality and hyponatremia; E11.52 Type 2 diabetes mellitus with diabetic peripheral angiopathy with gangrene; I13.2 Hypertensive heart and chronic kidney disease with heart failure and with stage 5 chronic kidney disease, or end stage renal disease; J98.11 Atelectasis; Z99.2 Dependence on renal dialysis; D63.1 Anemia in chronic kidney disease; L89.151 Pressure ulcer of sacral region, stage 1; L89.322 Pressure ulcer of left buttock, stage 2; I25.5 Ischemic cardiomyopathy; I25.10 Atherosclerotic heart disease of native coronary artery without angina pectoris; Z95.1 Presence of aortocoronary bypass graft; E11.22 Type 2 diabetes mellitus with diabetic chronic kidney disease; Z95.810 Presence of automatic (implantable) cardiac defibrillator; Z87.891 Personal history of nicotine dependence; Z95.5 Presence of coronary angioplasty implant and graft; Z88.0 Allergy status to penicillin; Z79.82 Long term (current) use of aspirin; Z79.899 Other long term (current) drug therapy; Z79.4 Long term (current) use of insulin; E78.00 Pure hypercholesterolemia, unspecified; E11.40 Type 2 diabetes mellitus with diabetic neuropathy, unspecified; F41.9 Anxiety disorder, unspecified; G89.4 Chronic pain syndrome; I49.5 Sick sinus syndrome; Z79.02 Long term (current) use of antithrombotics/antiplatelets; Z86.19 Personal history of other infectious and parasitic diseases; Z87.01 Personal history of pneumonia (recurrent)
CPT/HCPCS: 32555; 70450; 71045; 71260; 74177; 80053; 81003; 81015; 82140; 82150; 82945; 82947; 82962; 83036; 83605; 83615; 83986; 84155; 84157; 84478; 85014; 85018; 85025; 86850; 86900; 86901; 86920; 87015; 87040; 87070; 87086; 87102; 87116; 87205; 87206; 87502; 87811; 88112; 88305; 89051; 93005; 96361; 96374; 96375; 99285; G0257; P9016; P9047; Q5106; Q9967